=== PATIENT | male | born 1950 | race Caucasian/White ===

== ENCOUNTER 2018-07-21 11:05 | Outpatient (CLI) | payer MEDICARE, BC, SELFPAY ==
[2018-07-21 14:23] LABS: *AMPHETAMINES SCREEN URINE Negative (Negative); *BARBITURATES SCREEN URINE Negative (Negative); *BENZODIAZEPINES SCREEN URINE Negative (Negative); Cannabinoids THC Negative (Negative); Cocaine Screen,Urine Negative (Negative); METHADONE URINE SCREEN POSITIVE (Negative); OPIATES URINE SCREEN POSITIVE (Negative)
[2018-07-21 14:32] LABS: Tricyclic Antidepressants Negative (Negative)
== END 2018-07-21 11:25 ==
PROVIDERS: Visit Provider Psychiatry & Neurology Neurology
DX: G89.21 Chronic pain due to trauma (principal); Z79.899 Other long term (current) drug therapy
CPT/HCPCS: 80307

== ENCOUNTER → 2018-08-30 09:14 | Outpatient (BNVA) | payer MEDICARE, BC, SELFPAY | PROVIDERS: PCP Family Medicine; Visit Provider Physical Therapy Assistant | DX: Z86.010 Personal history of colon polyps (principal); Z12.11 Encounter for screening for malignant neoplasm of colon; Z79.01 Long term (current) use of anticoagulants; I10 Essential (primary) hypertension; E11.9 Type 2 diabetes mellitus without complications ==

== ENCOUNTER 2018-09-06 12:23 | Day surgery (SDC) | payer MEDICARE, BC, SELFPAY ==
--- NOTE | 2018-09-06 09:14 | COLE_ITS ---
Date of service: 09/06/18 Time of Service: 13:24 Colonoscopy Report Date of procedure: 09/06/18 Pre-op diagnosis general: Hx of polyps Post-op diagnosis procedure note: same (sigmoid polyp) Procedure: Colonoscopy with polypectomy by cold forceps Surgeon: Eugenia Armas Anesthesia proc note operative: MAC (Carson Forte CRNA) Estimated blood loss (mL): 3 Pathology: other (sigmoid polyps x2) Complications: None Disposition: same day Indications: Mr. Clemens is a 68-year-old gentleman who was seen in the office for a colonoscopy. His last colonoscopy was in 2012 and he was noted to have 2 tubular adenomas. Risks, benefits and complications have been reviewed. Complications include but are not limited to bleeding, pain, perforation, missed small lesion/polyp, sore throat, aspiration and adverse reaction to the me dications. Questions were entertained and answered to their satisfaction and they wished to proceed. No guarantees were given or implied. Prep: Miralax/Dulcolax (Carson Forte CRNA/ ASA 2) Procedure Start Time: 13:24 Procedure End Time: 13:52 Retraction Time: 17 minutes Findings: 1. 2 sessile polyps in the sigmoid colon. Procedure Description: After informed consent was obtained the patient was taken to the procedure room and placed in a left decubitous position. Monitors were applied and a time out was done. The patients name, date of , procedure, allergies to medications and metal in their body was reviewed. The patient was then sedated. Once sedated and comfortable a rectal exam was done. External exam was normal. Internal exam revealed a normal sphincter tone and no palpable masses. The prostate was smooth. The scope was then introduced and retro-flexed. No internal hemorrhoids were identified. The scope was then advanced to the cecum without difficulty. The TI and appendiceal orifice were identified. The prep was adequate although there was a lot of bile tinged mucus and stool in the right side of the colon. I was able to wash most of it down with 1.5 L of NS. The scope was then slowly retracted over 17 minutes back into the rectum. Polyps were removed in the sigmoid colon with a cold forceps. The scope was removed and the patient was woken up and taken back to Same day surgery in stable condition. The patient tolerated the procedure well and there were no immediate complications. Follow up: The patient should follow up in 3-5 years unless they develop changes in bowel habits or other new gastrointestinal complaints.
--- NOTE | 2018-09-06 09:14 | W.PM.DSUDISC ---
Discharge Plan Disposition Patient Disposition: HOME Condition: Good Discharge Details Reason For Visit: SCREENING Attending Provider: Eugenia Armas Home Meds and New Rx's Prescriptions: Continued acetaminophen [Tylenol] 325 MG tablet 650 mg PO PRN (Reason: Pain) RF: 0 venlafaxine 75 MG tablet 50 mg PO BID RF: 0 aspirin [Aspir-81] 81 MG tablet,delayed release (DR/EC) 81 mg PO DAILY RF: 0 sildenafil [Viagra] 100 MG tablet 100 mg PO PRNRF: 0 simvastatin 40 MG tablet 40 mg PO QPM RF: 0 lisinopril 10 MG tablet 10 mg PO DAILY RF: 0 warfarin [Coumadin] 2 MG tablet 2 mg PO DAILY RF: 0 hydrochlorothiazide 25 MG tablet 25 mg PO DAILY RF: 0 vitamin B complex 1 EACH capsule 1 ea PO DAILY RF: 0 Methocel E 4 M 1 GM granules 1 gm Miscellaneous DAILY RF: 0 cholecalciferol (vitamin D3) 50,000 UNIT capsule 50,000 unit PO DIRECTED RF: 0 glipizide 5 mg Tablet 5 mg PO HS RF: 0 Discontinued bisacodyl [Dulcolax (bisacodyl)] 5 mg tablet,delayed release (DR/EC) 5 mg PO ONCE Qty: 4 RF: 0 polyethylene glycol 3350 17 gram/dose powder 255 g PO ONCE Qty: 255 RF: 0 Discharge Instructions Instructions: Colonoscopy (DC), Colorectal Polyps (DC) Additional Instructions: Findings: 2 polyps Follow up:3-5 years Please call if you develop: fevers >101.5 Nausea or Vomiting Abdominal pain that is not transient DAY SURGERY UNIT POST COLONOSCOPY INSTRUCTIONS 1. Because there will be medication in your system for the next 24 hours, you may feel a little sleepy. Your coordination will be affected. Therefore: a. Do not drive or operate dangerous equipment for 24 hours. b. Do not drink alcohol beverages for 24 hours (not even beer). c. Plan to go home and rest for the day. 2. Generally there are no restrictions on your activity after a day or so has gone by, but you may feel a bit fatigued for a few days. 3 After you arrive home you may have a light meal and return to a normal diet as you can tolerate it without feeling sick to your stomach. 4. After surgery, you may feel pain or discomfort. This should be only transient, but if it persists please contact your doctor. 5. If there are any questions regarding the findings of your procedure, please feel free to contact your doctor. 6. If you are unable to contact your doctor with a problem, contact the hospital at [phone]. 7. Continue all your regular medications unless directed otherwise. I understand the above instructions and have no questions. Signature of Patient or Responsible Adult Escort Date/Time Name of Responsible Adult Escort Signature of Nurse Date/Time Stand Alone Forms: Regino Garrido (SOULEYMANEU) Activity:: Activity as Tolerated Diet:: As Tolerated Discharge Orders Discharge Orders: Discharge Order (Routine); Ordered 09/06/18 Ordered By: Eugenia Armas DS: Diagnosis Discharge Diagnosis (1) Colorectal polyps: Status: Acute (2) S/P colonoscopy: Status: Acute
[2018-09-06 12:39] VITALS: BP 121/87; PULSE 82; RESP 16; TEMP 35.9; O2SAT 97
[2018-09-06] MEDS: Lactated Ringers 1,000 ML 80 ML IV (13:08)
[2018-09-06 13:32] LABS: INR 1.2 (0.9-1.1); Prothrombin Time 12.2 sec (9.3-11.0)
--- NOTE | 2018-09-06 13:47 | BOWEL_PTH ---
PATIENT: Heladio Clemens LOC: [facility] U#:[id number] AGE/SX: 68/M ROOM: RE09/06/[address]: Eugenia Armas MD : [id number] BED: DIS: 09/06/2018 SPEC #: [id number] RECD: 09/06/18 17:28 STATUS: SARAH REQ #: [id number] EULOGIO: 09/06/18 13:[address]: Eugenia Armas DEPT: Surgical Specimen RECD BY: Valerie Moreira Tissues: 1 - BIOPSY BOWEL Procedures: GROSS AND MICRO LEVEL 4 Comments: [id number]
[2018-09-06 14:45] VITALS: BP 108/83; PULSE 63; RESP 16; TEMP 36; O2SAT 95
== END 2018-09-06 14:55 | disposition home or self-care (01) ==
PROVIDERS: Visit Provider Surgery
PROC: 0DJD8ZZ Inspection of Lower Intestinal Tract, Via Natural or Artificial Opening Endoscopic (ICD-10-PCS; CPT 45378; principal; 2018-09-06 12:00)
DX: Z12.11 Encounter for screening for malignant neoplasm of colon (principal); D12.5 Benign neoplasm of sigmoid colon; Z86.010 Personal history of colon polyps; I10 Essential (primary) hypertension; E11.9 Type 2 diabetes mellitus without complications; Z79.4 Long term (current) use of insulin
CPT/HCPCS: 45380; 36415; 88305; 85610

== ENCOUNTER → 2021-12-31 00:16 | Outpatient (CLI) | payer OTHER, SELFPAY ==
--- NOTE | 2021-12-31 13:38 | DI.RAD_ITS ---
Exam(s) XR SHOULDER RT COMPLETE 2+V EXAM: XR SHOULDER RT COMPLETE 2+V CLINICAL HISTORY: PATRICIA SHOULDER PAIN, LIMITED ROM, [id number], NO INJURY. TECHNIQUE: 2D digital imaging was performed. COMPARISON: CR RIGHT SHOULDER COMPLETE from 06/22/2011 FINDINGS: 3 views There is no evidence of fracture or dislocation. 3 x 1 millimeter calcific density seen in the soft tissues just above the greater tuberosity consistent with calcific tendinitis. No other calcificatio ns noted in the lateral subacromial space but there is some calcification noted more medially adjacen t to of the superior aspect of the osseous glenoid and this is either related to rotator cuff calcifi cation at this level or labral calcification. In addition, there are calcified loose bodies noted an teriorly. These are probably within the biceps tendon sheath. There are moderate degenerative changes in the glenohumeral joint. Moderate degenerative changes in the AC joint also noted. No ominous osseous lesions IMPRESSION: Calcific rotator cuff tendinitis. Loose intra-articular bodies, these calcified bodies appearing to be located in the long head biceps tendon sheath. There are 2 of these bodies, the largest measuring 10 x 7 millimeters. Degenerative changes in the glenohumeral and AC joints. DATA REPOSITORY: RADIATION DOSE DELIVERED:
--- NOTE | 2021-12-31 13:38 | DI.RAD_ITS ---
Exam(s) XR SHOULDER LT COMPLETE 2+V EXAM: XR SHOULDER LT COMPLETE 2+V CLINICAL HISTORY: PATRICIA SHOULDER PAIN, LIMITED ROM, NO INJURY, [id number]. TECHNIQUE: 2D digital imaging was performed. COMPARISON: CR XR SHOULDER RT COMPLETE 2+V from 12/31/2021 FINDINGS: Three views No evidence of fracture nor dislocation. No abnormal soft tissue calcifications in the subacromial s pace. There are some degenerative changes in the glenohumeral joint. Osteophytes seen on the inferi or articular surface of the humeral head. No obvious glenohumeral joint space narrowing.. There are mild degenerative changes in the AC joint. Bone density normal. No osseous lesions. IMPRESSION: Some degenerative change in the glenohumeral joint noted. DATA REPOSITORY: RADIATION DOSE DELIVERED:
== END ==
PROVIDERS: Visit Provider Internal Medicine
DX: M75.31 Calcific tendinitis of right shoulder (principal); M24.011 Loose body in right shoulder; M25.512 Pain in left shoulder
CPT/HCPCS: 73030

== ENCOUNTER 2022-02-13 09:12 | Outpatient (CLI) | payer OTHER, SELFPAY ==
--- NOTE | 2022-02-13 06:00 | DI.RAD_ITS ---
Exam(s) XR PAIN CLINIC SACRIOILIAC 2V EXAM: XR PAIN CLINIC SACRIOILIAC 2V CLINICAL HISTORY: Dx: Sacroiliac Joint Dysfunction. TECHNIQUE: Fluoroscopy was provided for the referring physician for guidance with performing pain cl inic injection procedure. COMPARISON: No exams were available for comparison FINDINGS: Left SI joint injection. Please see procedure note for details. Fluoro time: 15.9 seconds RADIATION DOSE DELIVERED: Ka,r=4.59 mGy
[2022-02-13 09:32] VITALS: BP 118/85; PULSE 91; RESP 20; TEMP 36.3; O2SAT 97
[2022-02-13] MEDS: methylPREDNISolone ACETATE 40 MG/ML VIAL (09:59)
--- NOTE | 2022-02-13 09:59 | PDOC.PAIN_ITS ---
Pain Clinic Procedure Note Procedure Note Procedure Note: INTRA-ARTICULAR SI JOINT INJECTION Heladio Baez has been referred to the [facility] for intra- articular SI joint injection. COMMENTS: He was previously evaluated in our clinic on 01/08/22. He is a diabetic with an Hem A1c of 7.7 here recently. Pre-procedure pain VAS = 5/10. Dx: Sacroiliac joint dysfunction Patient was interviewed and the medical record reviewed. There were no medical, pharmacologic, radiographic or other structural contraindications to attempting fluoroscopically guided intra-articular SI joint injection. Risks and expected side effects as well as potential benefit of the procedure were reviewed and voiced concerns addressed. The printed consent form was signed and witnessed. Standard time-out procedure was performed. Patient was placed in the prone position on the fluoroscopy table and automated blood pressure cuff and pulse oximeter applied. The skin entry point for approaching the bilateral SI joints was identified under the most advantageous fluoroscopic view and marked. Following thorough Chlorhexadine preparation of the skin and draping and 1% lidocaine infiltration of the skin entry point and subcutaneous tissues, a 22 gauge 3.5 spinal needle was placed under fluoroscopic guidance into the bilateral SI joints was identified under the most advantageous fluoroscopic view and marked. Intra-articular placement was confirmed by a clear arthrogram resulting from the injection of 0.25ml Omnipaque 240, 1ml 1% lidocaine, and 40mg Depomedrol were injected intra-articularily with an initial reproduction of a significant component of the usual pain. Vital signs were stable throughout the procedure and were as recorded in the docflowsheet by the nursing staff. If given, dosages of intravenous drugs for anxiolysis and analgesia were documented in MAR. Follow up plans and appointments were discussed with the patient. Post procedure instruction was given as documented in nursing documentation and having met discharge criteria, and was discharged from the [facility]. COMMENTS: Post-procedure pain VAS = 0/10. He will start back at his home exercise program in 2 days. Pradeep Coughlin DO, MPH [facility]-Pain Management [facility] CC:
[2022-02-13 10:15] VITALS: BP 133/87; PULSE 90; RESP 21; O2SAT 95
== END 2022-02-13 09:13 | disposition home or self-care (01) ==
LOC: PC 09:13
PROVIDERS: Visit Provider Preventive Medicine Occupational Medicine
DX: M53.3 Sacrococcygeal disorders, not elsewhere classified (principal)
CPT/HCPCS: 27096; 72200; J1030

== ENCOUNTER 2022-05-23 11:39 | Emergency (ER) | payer OTHER, SELFPAY ==
[2022-05-23 11:53] VITALS: BP 101/74; PULSE 94; RESP 17; TEMP 36.6; O2SAT 93
--- NOTE | 2022-05-23 12:15 | DI.CT_ITS ---
Exam(s) CT HEAD FACIAL WO EXAM: CT HEAD FACIAL WO CLINICAL HISTORY: fall/head injury, inr 4. TECHNIQUE: Imaging Protocol: Axial computed tomography images of the head with coronal and sagittal reformatted images were created and reviewed CT of the facial region was also obtained utilizing multi slice acquisition and multiplanar reconstru ction. COMPARISON: CT HEAD WITHOUT CONTRAST from 06/22/2011 FINDINGS: There is moderate generalized cerebral atrophy.. No evidence of acute intracranial hemorrhage, mass effect, or midline shift. The orbital structures are unremarkable. The temporal bone structures appear intact. Calvarium: Normal. Visualized Paranasal sinuses/Mastoids: Clear. CT examination of the orbital facial region shows no evidence of acute facial fracture. No mandibula r fracture. Paranasal sinuses and orbital structures are. IMPRESSION: No evidence of acute intracranial process on head CT. Normal orbital facial CT. RADIATION DOSE DELIVERED: Total DLP Total DLP !Error CTDIvol DATA REPOSITORY: All CT scans at this facility are submitted to the National Radiology Data Registry (NRDR) Dose Index Registry (DIR) with the [employer] (A[employer]). RADIATION OPTIMIZATION: All CT scans at this facility use at least one of these dose optimization te chniques: automated exposure control; mA and/or kV adjustment per patient size (includes targeted exa ms where dose is matched to clinical indication); or iterative reconstruction.
--- NOTE | 2022-05-23 12:23 | ED.GENADUL_ITS ---
Discharge Plan Disposition Patient Disposition: HOME Condition: Stable Discharge Details Clinical Impression: Head injury, Elevated INR Primary Care Provider: LEXI PATEL ED Provider: Ramon Moore Home Meds and New Rx's Prescriptions: Continued atorvastatin 40 mg tablet 40 mg PO DAILY Jardiance 25 mg tablet 25 mg PO DAILY irbesartan [Avapro] 150 mg tablet 150 mg PO DAILY metformin 1,000 mg tablet 1,000 mg PO BID venlafaxine 100 mg tablet 50 mg PO DAILY ketorolac 0.5 % drops 1 drp ophthalmic (eye) QID amlodipine 5 mg tablet 5 mg PO DAILY acetaminophen [Tylenol] 325 MG tablet 650 mg PO PRN (Reason: Pain) aspirin [Aspir-81] 81 MG tablet,delayed release (DR/EC) 81 mg PO DAILY sildenafil [Viagra] 100 MG tablet 100 mg PO PRN simvastatin 40 MG tablet 40 mg PO QPM lisinopril 10 MG tablet 10 mg PO DAILY warfarin [Coumadin] 2 MG tablet 2 mg PO DAILY Label Comments: 12/13/12: 4 mg daily except M and Thu when he takes 3 mg. mrf hydrochlorothiazide 25 MG tablet 25 mg PO DAILY vitamin B complex 1 EACH capsule 1 ea PO DAILY Methocel E 4 M 1 GM granules 1 gm Miscellaneous DAILY cholecalciferol (vitamin D3) 50,000 UNIT capsule 50,000 unit PO DIRECTED Label Comments: weekly on Thu. glipizide 5 mg Tablet 5 mg PO HS Discharge Instructions Instructions: Head Injury (ED), Elevated INR (ED) Additional Instructions: Your INR is elevated. I would not take your Coumadin dose today or tomorrow. Resume your Coumadin on Thursday and then contact your primary care provider first thing Thursday morning to make them aware of your ER visit and your elevated Coumadin. They may want to adjust your dose or check your INR first thing Thursday. I do not want you to wait until Thursday when you have your scheduled appointment. CT imaging of your head and face are unremarkable. Please watch for new or worsening symptoms and return to the ER for any concerns Medical Decision Making 72-year-old gentleman, anticoagulated, tetanus status up-to-date, presents for mechanical fall that occurred 2 days ago striking his head. Questions brief LOC. Asymptomatic now. Seen by his PCP yesterday and noted to have a supratherapeutic INR, sent to the ER for imaging. Patient appears well, neurologically intact. Will obtain CT imaging of his head and face as well as recheck his INR CT imaging of head and face INR 5.2. Discussed CT imaging and laboratory values with patient and family. We will hold Coumadin today and tomorrow. Will take Coumadin Thursday night and contact his PCP first thing Thursday morning to discuss his INR level and change medications if necessary. Patient is scheduled to see his PCP next Thursday but I do not want him to wait that long, this is why recommend contacting him on Thursday. Discussed the importance of returning to the ER for new or evolving symptoms. Standard discharge and return precautions were provided. Patient understands, is agreeable to this plan, and has no additional questions or concerns upon discharge. This documentation was generated using [employer] system, please disregard any oddities of phrase or misspellings. Medical Records Medical records reviewed: Yes I reviewed the patient's medical records. Imaging Data Radiologic Study: Attestation: I personally reviewed and interpreted this imaging study as follows: Imaging: CT Scan Radiologist's impression: Exam(s) CT HEAD FACIAL WO EXAM: CT HEAD FACIAL WO CLINICAL HISTORY: fall/head injury, inr 4. TECHNIQUE: Imaging Protocol: Axial computed tomography images of the head with coronal and sagittal reformatted images were created and reviewed CT of the facial region was also obtained utilizing multi slice acquisition and multiplanar reconstruction. COMPARISON: CT HEAD WITHOUT CONTRAST from 06/22/2011 FINDINGS: There is moderate generalized cerebral atrophy.. No evidence of acute intracranial hemorrhage, mass effect, or midline shift. The orbital structures are unremarkable. The temporal bone structures appear intact. Calvarium: Normal. Visualized Paranasal sinuses/Mastoids: Clear. CT examination of the orbital facial region shows no evidence of acute facial fracture. No mandibular fracture. Paranasal sinuses and orbital structures are. IMPRESSION: No evidence of acute intracranial process on head CT. Normal orbital facial CT. Lab Data Lab results reviewed: Yes I reviewed the patient's lab results. Labs: Laboratory Tests Range/Units 05/23/22 12:30 PT (9.3-11.0) sec 47.4 H INR (0.9-1.1) 5.2 H* HPI General Mode of arrival: ambulatory . Date/Time Provider Initiated Documentation: 05/23/22 12:14 . Limitations to Documentation: no limitations . Information obtained by: patient and family . History of Present Illness 72 year old M presents to the emergency department with the chief complaint of fall/head injury, described as mild, with intensity rated at 2. Quality is described as aching, and is localized to the head and face. Patient reports no radiation. Patient started experiencing this day(s) (2) and it has been constant. No relieving factors improve symptom(s), No exacerbating factors reported . Patient notes no other symptoms.. Patient did receive the following treatments prior to arrival, none Related Data Home Medications Medication Instructions Recorded Confirmed acetaminophen 325 mg tablet 650 mg PO PRN Pain 12/13/12 01/08/22 (Tylenol) aspirin 81 mg tablet,delayed 81 mg PO DAILY 12/13/12 01/08/22 release (Aspir-) carboxymethylcellulose (Methocel E 1 gm miscellaneous DAILY 12/13/12 01/08/22 4 M granules) cholecalciferol (vitamin D3) 1,250 50,000 unit PO DIRECTED 12/13/12 01/08/22 mcg (50,000 unit) capsule hydrochlorothiazide 25 mg tablet 25 mg PO DAILY 12/13/12 01/08/22 lisinopril 10 mg tablet 10 mg PO DAILY 12/13/12 01/08/22 sildenafil 100 mg tablet (Viagra) 100 mg PO PRN 12/13/12 01/08/22 simvastatin 40 mg tablet 40 mg PO QPM 12/13/12 01/08/22 vitamin B complex 1 ea PO DAILY 12/13/12 01/08/22 warfarin 2 mg tablet (Coumadin) 2 mg PO DAILY 12/13/12 01/08/22 glipizide 5 mg tablet 5 mg PO HS 09/06/18 01/08/22 atorvastatin 40 mg tablet 40 mg PO DAILY 01/07/22 01/08/22 empagliflozin 25 mg tablet 25 mg PO DAILY 01/07/22 01/08/22 (Jardiance) irbesartan 150 mg tablet (Avapro) 150 mg PO DAILY 01/07/22 01/08/22 ketorolac 0.5 % eye drops 1 drp ophthalmic (eye) QID 01/07/22 01/08/22 metformin 1,000 mg tablet 1,000 mg PO BID 01/07/22 01/08/22 venlafaxine 100 mg tablet 50 mg PO DAILY 01/07/22 01/08/22 amlodipine 5 mg tablet 5 mg PO DAILY 01/08/22 01/08/22 Allergies Allergy/AdvReac Type Severity Reaction Status Date / Time No Known Allergies Allergy Unverified 02/13/22 09:29 General Stated Complaint: FacialProb LEÓN: 3 Review of Systems Constitutional Constitutional: Reports headache(s) and Denies weakness Eyes Eyes: Denies change in vision ENT Ears, Nose, Mouth, and Throat: Reports headache(s) and Denies neck pain Cardiovascular Cardiovascular: Denies chest pain and Denies dyspnea Respiratory Respiratory: Denies dyspnea Gastrointestinal Gastrointestinal: Denies nausea and Denies vomiting Musculoskeletal Musculoskeletal: Denies neck pain, Denies numbness and Denies tingling Neurologic Neurologic: Reports headache(s), Denies numbness, Denies tingling and Denies weakness Hematologic/Lymphatic Hematologic/Lymphatic: Reports easy bleeding and Reports easy bruising PFSH All Active Problems Head injury (Acute) Elevated INR (Acute) Adhesive capsulitis of both shoulders (Acute) Sacroiliac joint dysfunction of both sides (Acute) S/P colonoscopy (Acute ~09/06/18) Colorectal polyps (Acute ~09/06/18) History of colonic polyps (Acute) Medical History Abnormal glucose Carpal tunnel syndrome Diabetes mellitus type 2, controlled, without complications Hypertension 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 Ecchymosis, contusion, tenderness no crepitus. Multiple abrasions. No open laceration General nose exam: external nose normal Mouth: moist mucous membranes Eyes Alignment and Position: alignment normal Eyelids: eyelids normal Conjunctivae: conjunctivae normal Sclera: sclerae normal Cornea: corneas normal Pupils: PERRL EOM: EOM intact bilaterally Direct ophthalmoscopy: normal light reflex Neck Neck: normal visual inspection, full ROM, trachea midline, supple and nontender Resp Effort & Inspection: normal respiratory effort and able to speak in complete sentences Auscultation: clear to auscultation bilaterally Cardio Rate: regular rate Rhythm: regular rhythm Back/Spine/Pelvis Back: No back tenderness Skin General skin exam: no rashes or lesions noted Neuro General: patient alert, patient awake, patient oriented x3, moves all extremities and no focal motor deficits Cranial Nerves: CN's II-XI intact bilaterally Cognition: normal cognition Speech: speech normal Gait: normal gait Motor: muscle tone normal throughout Sensory Exam: no sensory deficits noted Extrem General: normal to inspection, full ROM and capillary refill normal Psych Appearance: grossly normal Mental Status: mental status grossly normal Course Vital Signs Vital signs: Vital Signs Temperature 36.6 C 05/23/22 11:53 Pulse 94 H 05/23/22 11:53 Respiratory Rate 17 05/23/22 11:53 Blood Pressure 101/74 05/23/22 11:53 Pulse Oximetry 93 05/23/22 11:53 Temperature 36.6 C 05/23/22 11:53 Temperature Source Temporal Artery Scan 05/23/22 11:53 Pulse 94 H 05/23/22 11:53 Respiratory Rate 17 05/23/22 11:53 Blood Pressure 101/74 05/23/22 11:53 Blood Pressure Position Sitting 05/23/22 11:53 Pulse Oximetry 93 05/23/22 11:53 Oxygen Delivery Method Room Air 05/23/22 11:53 Oxygen Flow Rate 0 05/23/22 11:53 Pain Level 0 05/23/22 11:53
[2022-05-23 12:50] LABS: Prothrombin Time 47.4 sec (9.3-11.0)
[2022-05-23 13:06] LABS: INR 5.2 (0.9-1.1)
== END 2022-05-23 13:37 | disposition home or self-care (01) ==
PROVIDERS: Emergency Provider Physician Assistant; PCP Internal Medicine
DX: S00.93XA Contusion of unspecified part of head, initial encounter (principal); R79.1 Abnormal coagulation profile; E11.9 Type 2 diabetes mellitus without complications; F32.9 Major depressive disorder, single episode, unspecified; I10 Essential (primary) hypertension; Z87.891 Personal history of nicotine dependence; W19.XXXA Unspecified fall, initial encounter
CPT/HCPCS: 36415; 99284; 70450; 70486; 85610; 99282

== ENCOUNTER 2023-03-24 09:34 | Inpatient (IN) | payer OTHER, SELFPAY ==
[2023-03-24] VITALS (104 sets, daily range): BP systolic 88–106; BP diastolic 57–79; PULSE 89–113; RESP 13–43; TEMP 37.2–37.6; O2SAT 89–97
--- NOTE | 2023-03-24 | DI.RAD_ITS ---
Exam(s) XR PORTABLE CHEST AP EXAM: XR PORTABLE CHEST AP CLINICAL HISTORY: hypoxia?. TECHNIQUE: 2D digital imaging was performed. COMPARISON: CR RIGHT RIBS TO INCLUDE CXR from 06/22/2011 FINDINGS: Single AP portable view. Heart size is upper normal. The mediastinum is not widened. Lungs are clear. No infiltrates nor obvious pleural effusions. Multiple healed right-sided fractures noted. IMPRESSION: No acute pulmonary findings on this single AP portable view of the chest. DATA REPOSITORY: RADIATION DOSE DELIVERED:
--- NOTE | 2023-03-24 | DI.MRI_ITS ---
Exam(s) MR ABDOMEN WO EXAM: MR ABDOMEN WO CLINICAL HISTORY: MRCP: dilated CBD TECHNIQUE: Multiplanar multisequence MRI of the Abdomen was performed. MRCP sequences also performed. COMPARISON: CT CT ABDOMEN PELVIS W from 03/24/2023 FINDINGS: Exam is limited by patient motion. Liver: Unremarkable. Gallbladder: Unremarkable. Bile Ducts: Mild intrahepatic biliary dilatation. Dilatation of the common bile duct to 13 millimete rs. Rounded filling defect seen in the are CP sequences at the distal common bile duct consistent wi th a stone approximately 8 millimeters in diameter. Pancreas: Unremarkable. No mass or inflammation. No ductal dilatation. Adrenals: Unremarkable. Kidneys: Unremarkable. Spleen: Unremarkable. Aorta: Unremarkable. Soft Tissues: Unremarkable. Bone: Unremarkable. Lymph Nodes: Unremarkable. Mesentery: No ascites. No focal fluid collection. Bowel: No abnormal dilatation or wall thickening. IMPRESSION: Exam limited by patient motion. Dilatation of the common bile duct and probable distal common bile duct stone. DATA REPOSITORY:
--- NOTE | 2023-03-24 09:30 | DI.CT_ITS ---
Exam(s) CT ABDOMEN PELVIS W EXAM: CT ABDOMEN PELVIS W CLINICAL HISTORY: vomiting, generalized abdominal pain. TECHNIQUE: Imaging Protocol: Axial computed tomography images with coronal and sagittal reformatted images were created and reviewed CONTRAST MATERIAL: Intravenous: Omnipaque 350 Contrast volume:100 ml Oral: / no COMPARISON: CT ABD PELVIS WITH CONTRAST from 06/22/2011 FINDINGS: ABDOMEN: Lung Bases: Mild dependent changes. Coronary artery calcifications. Liver: Normal density. No measurable mass. Gallbladder and biliary tract: No radiodense calculus. There is dilatation of the common bile duct 10 millimeters no common duct stone is visible. No mass is visible. There is mild intrahepatic bili alina dilatation. No gallstones or gallbladder wall thickening is seen. Pancreas: Normal density, no abnormal calcifications or inflammatory process. Spleen: Normal. Kidneys: Normal size, contour and axis. No radiodense stones or obstructive uropathy. No suspicious m asses seen. Adrenal glands: No masses seen. Abdominal Aorta: Abdominal portion non-dilated. Severe atherosclerotic calcification of the abdomin al aorta and branch vessels. Soft tissues: Unremarkable. PELVIS: Bladder: No gross wall thickening. No calculi.No focal mass. Bowel: Moderate to increased stool. No obstruction. No bowel wall thickening. Appendix normal. Peritoneal cavity: No ascites, collection or mesenteric inflammatory response. Bones: Severe degenerate changes in the spine. Reproductive organs: Within normal limits. Lymph nodes: Unremarkable. Impression: Dilated common bile duct and mild intrahepatic biliary dilatation. No obstructing stone or mass visi ble. Findings called to Dr. Marquez of the emergency department. RADIATION DOSE DELIVERED: 1,200.78mGy.cm Total DLP DATA REPOSITORY: All CT scans at this facility are submitted to the National Radiology Data Registry (NRDR) Dose Index Registry (DIR) with the [employer] (ACR). RADIATION OPTIMIZATION: All CT scans at this facility use at least one of these dose optimization te chniques: automated exposure control; mA and/or kV adjustment per patient size (includes targeted exa ms where dose is matched to clinical indication); or iterative reconstruction.
--- NOTE | 2023-03-24 09:30 | RT.EKG_ITS ---
APPROVED REPORT Exam: Resting ECG Reason for Exam: Dizzyness Patient Location: E HR:110 bpm ECG Measurements Heart Rate 110 AXIS KS 140 P [id number] QRSd 90 QRS 93 QT 338 T -2 QTc 458 Conclusion Atrial-ventricular dual-paced complexes...other complexes also detected Right axis deviation...QRS axis ( 95,830) Physician: NOT PACED, no stemi, no prior for comparison
--- NOTE | 2023-03-24 09:40 | W.ED.GENAD ---
Discharge Plan Disposition Patient Disposition: Admit to [facility] Condition: Good Discharge Details Chief Complaint: Dizzy/Sync Clinical Impression: Acute hypokalemia, Hypomagnesemia, Dehydration, Vomiting, Common bile duct dilation Primary Care Provider: LEXI PATEL ED Provider: Jaime Marquez Home Meds and New Rx's Prescriptions: No Action atorvastatin 40 mg tablet 40 mg PO DAILY Jardiance 25 mg tablet 25 mg PO DAILY irbesartan [Avapro] 150 mg tablet 150 mg PO DAILY metformin 1,000 mg tablet 1,000 mg PO BID venlafaxine 100 mg tablet 50 mg PO DAILY ketorolac 0.5 % drops 1 drp ophthalmic (eye) QID amlodipine 5 mg tablet 5 mg PO DAILY acetaminophen [Tylenol] 325 MG tablet 650 mg PO PRN PRN (Reason: Pain) aspirin [Aspir-81] 81 MG tablet,delayed release (DR/EC) 81 mg PO DAILY sildenafil [Viagra] 100 MG tablet 100 mg PO PRN simvastatin 40 MG tablet 40 mg PO QPM lisinopril 10 MG tablet 10 mg PO DAILY warfarin [Coumadin] 2 MG tablet 2 mg PO DAILY Patient Comments: 12/13/12: 4 mg daily except M and Fri when he takes 3 mg. mrf hydrochlorothiazide 25 MG tablet 25 mg PO DAILY vitamin B complex 1 EACH capsule 1 ea PO DAILY Methocel E 4 M 1 GM granules 1 gm Miscellaneous DAILY cholecalciferol (vitamin D3) 50,000 UNIT capsule 50,000 unit PO DIRECTED Patient Comments: weekly on Mon. methadone 10 mg tablet 10 mg PO BID Patient Comments: TAKE 1 TABLET BY MOUTH EVERY MORNING AND TAKE 2 TABLET EVERY EVENING ON DAILY BASIS FOR CHRONIC PAIN hydrocodone-acetaminophen 7.5-325 mg tablet 1 tab PO PRN PRN Patient Comments: TAKE 1 TABLET BY MOUTH EVERY 6 HOURS NEEDED FOR CHRONIC PAIN glipizide 5 mg Tablet 5 mg PO HS Medical Decision Making 73-year-old male with a past medical history of stroke on Coumadin, type 2 diabetes, who was recently started on methadone and Vicodin, who presents today for evaluation of nausea, dizziness, vomiting over the last 24 to 48 hours. He denies any blood in his vomitus. He does admit to constipation and says he has not had a bowel movement in the last day or 2. He is now dry heaving today and has not been able to vomit anything else. He has not been eating or drinking because of his symptoms. He denies any chest pain or shortness of breath. He denies any focal abdominal pain, describes his abdomen is feeling generally unwell. He denies any fever or chills. He did just get back from a camping trip, and did swim in a wagner, but he denies drinking any water. No history of previous abdominal surgeries. No other complaints at this time. Exam demonstrates well-appearing male, dry mucous membranes. No focal neurologic deficits. Nontender abdomen. Differential includes pancreatitis, gastroenteritis, less likely obstruction or constipation. We will rehydrate, evaluate for electrolyte abnormality, get a CT scan to evaluate for obstruction, monitor closely and reassess. 12:[address] scan shows evidence of dilated common bile duct with mild intrahepatic biliary dilatation. No obstructing masses seen no. Laboratory work-up shows no white count or bandemia. INR is supratherapeutic 4.8, but the patient has no bleeding or anemia. No indication for emergency reversal at this point. Potassium low at 2.7, magnesium low at 1.1, IV magnesium given, 40 of oral and 20 of IV potassium given. Lipase normal. Troponin normal. Patient feels slightly better. I did discuss the imaging results with surgery Dr. Armas, and she recommends MRCP as the next step. I did discuss admission and it was requested that due to the medical components that it be a medical admission with surgical consult. I did reach out to medicine discussed the case with Dr. Barajas. She accepts the patient for admission for medical management with surgical consultation. Discussed this with both the patient and his significant other at bedside. They agree with the plan. I have extensively reviewed the treatment plan with the patient. I have addressed all patient concerns at this time. I have also discussed the plan with the admitting physician and they agree with the current assessment and plan and have agreed to assume responsibility for the patient. All parties demonstrate verbal understanding and agreement with our assessment and plan at this time. The documentation in this chart was dictated using [employer] dictation software. Please excuse any dictation errors. FINDINGS: ABDOMEN: Lung Bases: Mild dependent changes. Coronary artery calcifications. Liver: Normal density. No measurable mass. Gallbladder and biliary tract: No radiodense calculus. There is dilatation of the common bile duct 10 millimeters no common duct stone is visible. No mass is visible. There is mild intrahepatic biliary dilatation. No gallstones or gallbladder wall thickening is seen. Pancreas: Normal density, no abnormal calcifications or inflammatory process. Spleen: Normal. Kidneys: Normal size, contour and axis. No radiodense stones or obstructive uropathy. No suspicious masses seen. Adrenal glands: No masses seen. Abdominal Aorta: Abdominal portion non-dilated. Severe atherosclerotic calcification of the abdominal aorta and branch vessels. Soft tissues: Unremarkable. PELVIS: Bladder: No gross wall thickening. No calculi.No focal mass. Bowel: Moderate to increased stool. No obstruction. No bowel wall thickening. Appendix normal. Peritoneal cavity: No ascites, collection or mesenteric inflammatory response. Bones: Severe degenerate changes in the spine. Reproductive organs: Within normal limits. Lymph nodes: Unremarkable. Impression: Dilated common bile duct and mild intrahepatic biliary dilatation. No obstructing stone or mass visible. Findings called to Dr. Marquez of the emergency department. HPI General Date/Time Provider Initiated Documentation: 03/24/23 09:38. HPI Narrative: 73-year-old male with a past medical history of stroke on Coumadin, type 2 diabetes, who was recently started on methadone and Vicodin, who presents today for evaluation of nausea, dizziness, vomiting over the last 24 to 48 hours. He denies any blood in his vomitus. He does admit to constipation and says he has not had a bowel movement in the last day or 2. He is now dry heaving today and has not been able to vomit anything else. He has not been eating or drinking because of his symptoms. He denies any chest pain or shortness of breath. He denies any focal abdominal pain, describes his abdomen is feeling generally unwell. He denies any fever or chills. He did just get back from a camping trip, and did swim in a wagner, but he denies drinking any water. No history of previous abdominal surgeries. No other complaints at this time. Related Data Home Medications Medication Instructions Recorded Confirmed acetaminophen 325 mg tablet 650 mg PO PRN PRN Pain 12/13/12 03/24/23 (Tylenol) aspirin 81 mg tablet,delayed 81 mg PO DAILY 12/13/12 03/24/23 release (Aspir-) carboxymethylcellulose (Methocel E 1 gm miscellaneous DAILY 12/13/12 03/24/23 4 M granules) cholecalciferol (vitamin D3) 1,250 50,000 unit PO DIRECTED 12/13/12 03/24/23 mcg (50,000 unit) capsule hydrochlorothiazide 25 mg tablet 25 mg PO DAILY 12/13/12 03/24/23 lisinopril 10 mg tablet 10 mg PO DAILY 12/13/12 03/24/23 sildenafil 100 mg tablet (Viagra) 100 mg PO PRN 12/13/12 01/08/22 simvastatin 40 mg tablet 40 mg PO QPM 12/13/12 03/24/23 vitamin B complex 1 ea PO DAILY 12/13/12 03/24/23 warfarin 2 mg tablet (Coumadin) 2 mg PO DAILY 12/13/12 03/24/23 glipizide 5 mg tablet 5 mg PO HS 09/06/18 03/24/23 atorvastatin 40 mg tablet 40 mg PO DAILY 01/07/22 03/24/23 empagliflozin 25 mg tablet 25 mg PO DAILY 01/07/22 03/24/23 (Jardiance) irbesartan 150 mg tablet (Avapro) 150 mg PO DAILY 01/07/22 03/24/23 ketorolac 0.5 % eye drops 1 drp ophthalmic (eye) QID 01/07/22 03/24/23 metformin 1,000 mg tablet 1,000 mg PO BID 01/07/22 03/24/23 venlafaxine 100 mg tablet 50 mg PO DAILY 01/07/22 03/24/23 amlodipine 5 mg tablet 5 mg PO DAILY 01/08/22 03/24/23 hydrocodone 7.5 mg-acetaminophen 1 tab PO PRN PRN 03/24/23 03/24/23 325 mg tablet methadone 10 mg tablet 10 mg PO BID 03/24/23 03/24/23 Allergies Allergy/AdvReac Type Severity Reaction Status Date / Time No Known Allergies Allergy Unverified 03/24/23 09:39 General Stated Complaint: Dizzy/Sync LEÓN: 3 Review of Systems All systems reviewed & are unremarkable except as noted in HPI and below PFSH All Active Problems (Updated 03/24/23 @ 12:16 by Jaime Marquez DO) Acute hypokalemia (Acute) Hypomagnesemia (Acute) Dehydration (Acute) Vomiting (Acute) Common bile duct dilation (Acute) Adhesive capsulitis of both shoulders (Acute) Sacroiliac joint dysfunction of both sides (Acute) S/P colonoscopy (Acute ~09/06/18) Colorectal polyps (Acute ~09/06/18) History of colonic polyps (Acute) Medical History Abnormal glucose Carpal tunnel syndrome Diabetes mellitus type 2, controlled, without complications Hypertension 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 3.ENT: Atraumatic external nose and ears. Notably dry MM. Neck: Symmetric, trachea midline, No thyromegaly. 4.CVS: +S1/S2, No murmurs or gallops. Peripheral pulses 2+ and equal in all extremities. Brisk capillary refill in all extremities. 5.RESP: Unlabored respiratory effort. Clear to auscultation bilaterally. No wheezes rales or rhonchi 6.GI: Soft, Nontender/Nondistended, No hepatosplenomegaly. No guarding or rebound. No pain to McBurney's point, negative Hancock sign. 7.MSK: Normocephalic/Atraumatic, Extremities w/o deformity or ttp No cyanosis or clubbing, Normal movement of all extremities 8.Skin: Warm, Dry. No rashes or lesions. 9.Neuro: admissions officer II-XII grossly intact. Sensation grossly intact, no focal neurologic deficits. All 6 cardinal planes of vision are fully intact. No evidence of rotatory or vertical nystagmus. The patient demonstrated a normal [id number], good dexterity. There was no evidence of dysdiadochokinesia. Patient was able to ambulate without difficulty. There was no wide-based gait. Romberg testing was normal. Xjyj-du-[id number] testing was normal. Sensation was intact bilaterally as well as muscle strength bilaterally for all extremities. Patient was able to verbalize butter cup with no slurring, or miss pronunciation. 10.Psych: (AAO) x3. Appropriate mood and affect Course Vital Signs Vital signs: Vital Signs Temperature 37.6 C H 03/24/23 09:34 Pulse 113 H 03/24/23 09:34 Respiratory Rate 18 03/24/23 09:34 Blood Pressure 99/67 L 03/24/23 09:34 Pulse Oximetry 92 03/24/23 09:34 Temperature 37.6 C H 03/24/23 09:34 Temperature Source Oral 03/24/23 09:34 Pulse 113 H 03/24/23 09:34 Respiratory Rate 18 03/24/23 09:34 Blood Pressure 99/67 L 03/24/23 09:34 Pulse Oximetry 92 03/24/23 09:34 Oxygen Delivery Method Room Air 03/24/23 09:34 Oxygen Flow Rate 0 03/24/23 09:34 Pain Level 5 03/24/23 09:34
[2023-03-24 09:58] LABS: Abs Immature Grans 0.07 10^3/uL (0.0-0.06); Absolute Basophil Count 0.02 10^3/uL (0.0-0.2); Absolute Lymphocyte Count 0.29 10^3/uL (1.2-3.4); Absolute Monocyte Count 0.23 10^3/uL (0.1-0.8); Absolute Neutrophil Count 8.49 10^3/uL (1.2-6.7); Basophils % 0.2; HCT 41.4 % (40.0-50.0); HGB 13.6 g/dL (13.5-17.5); Immature Grans % 0.8; Lymphocytes % 3.2; MCH 29.6 pg (27.0-33.0); MCHC 32.9 % (32.0-36.0); MCV 90 fL (80-95); MPV 10.1 fL (8.0-11.0); Monocytes % 2.5; Neutrophils % 93.3; Platelet Count 230 10^3/uL (130-400); RBC 4.59 10^6/uL (4.36-5.78); RDW 13.8 % (11.8-14.1); RDW-SD 45.6 fL
[2023-03-24] MEDS: Ondansetron 4 MG/2 ML VIAL IVP ×2 (09:58→21:06)
[2023-03-24] MEDS: Normal Saline 1,000 ML 1000 ML IV ×2 (09:58→10:36)
--- NOTE | 2023-03-24 10:04 | NUR.NOTE ---
Nursing Note: Received report from Jennifer BRADLEY; assumed care of patient at this time.
[2023-03-24 10:08] LABS: BE (Venous) 1 mmol/L (-2-3); HCO3 (Venous) 26 mmol/L (23-28); O2 Sat (Venous) 88 %; TCO2 (Venous) 23 mmol/L (24-29); pCO2 (Venous) 40 mmHg (41-51); pH (Venous) 7.42 (7.31-7.41); pO2 (Venous) 55 mmHg
[2023-03-24 10:26] LABS: ALT 59 U/L (16-63); AST 72 U/L (15-37); Albumin 3.4 g/dL (3.4-5.0); Alkaline Phosphatase 186 U/L (46-116); Anion Gap 13.6 mmol/L (3-11); BUN 30 mg/dL (7-18); Bilirubin, Total 1.6 mg/dL (0.2-1.0); CO2 26.4 mmol/L (21.0-32.0); CREATININE 1.5 mg/dL (0.70-1.30); Calcium 8.9 mg/dL (8.5-10.1); Chloride 94 mmol/L (98-107); Estimated GFR 49.47 (mL/min/1.73m2); Glucose 188 mg/dL (74-106); Lipase 31 U/L (16-77); Sodium 134 mmol/L (136-145); Total Protein 7.1 g/dL (6.4-8.2); Troponin I < 50 ng/L (<or=60)
[2023-03-24 10:27] LABS: Potassium 2.7 mmol/L (3.5-5.1)
[2023-03-24 10:28] LABS: PTT Activated 35.2 sec (21.5-31.9)
[2023-03-24 10:31] LABS: INR 4.8 (0.9-1.1)
[2023-03-24] MEDS: Potassium Chloride 20 MEQ TABCR 40 MEQ PO (10:38)
[2023-03-24] MEDS: MAGNESIUM SULFATE 1 GM/100 ML BAG IVPB (10:38)
[2023-03-24] MEDS: POTASSIUM CHLORIDE 20 MEQ/100 ML BAG 50 MEQ IVPB (10:38)
[2023-03-24] MEDS: Normal Saline Flush 10 ML SYR IVP ×3 (10:44→15:08)
[2023-03-24] MEDS: Normal Saline - Diluent 50 ML VIAL IJ (10:44)
[2023-03-24] MEDS: Omnipaque 350 MG/ML 500 ML BTL-Imaging package IJ (10:45)
[2023-03-24 10:48] LABS: Magnesium 1.1 mg/dL (1.8-2.4)
--- NOTE | 2023-03-24 11:34 | NUR.NOTE ---
Nursing Note: Dr Marquez notified about placing supplemental O2 at 2L on patient. 89% on RA, rebounded immediately to 95% on 2L
--- NOTE | 2023-03-24 12:35 | NUR.NOTE ---
Nursing Note: Report to Chayito BRADLEY. Pt going to 206 shortly.
[2023-03-24] MEDS: Normal Saline 500 ML 50 ML IV (13:10)
[2023-03-24] MEDS: Lactated Ringers 1,000 ML 1000 ML IV (14:12)
[2023-03-24] MEDS: MAGNESIUM SULFATE 4 GM/100 ML BAG IVPB (14:22)
--- NOTE | 2023-03-24 14:30 | SCONE_ITS ---
Documented by User: CLEMENTINA Greco 03/24/23 14:41 Date of service: 03/24/23 Time of Service: 14:30 Assessment and Plan Assessment and plan (1) Common bile duct dilation: Status: Acute Assessment and plan: At this time Heladio is comfortable without any pain. He describes having some minor nausea. Recommend continuing n.p.o. status until he has had MRCP later today to rule out cholelithiasis. Discussed with both Heladio and his that if cholelithiasis is determined by MRCP then the recommendation would be an ERCP at [facility]. We will await MRCP results. History of Present Illness History of Present Illness Chief Complaint: Common Bile Duct Dilation Narrative: 73-year-old male with a history of stroke, neuropathy, obesity, depression, thrombophilia, diabetes, hypertension and spinal stenosis presented to the ER with complaints of nausea, dizziness and vomiting over the past [address] scan of abdomen and pelvis in the ER demonstrated dilated common bile duct and mild intrahepatic biliary dilatation change. He was also found to also have acute hypokalemia, hypomagnesemia and dehydration. This afternoon Heladio reports that he is feeling better however he continues to have some nausea. He denies having any abdominal pain at this time. He denies any changes in his bowel habits over the past few days. PFSH All Active Problems Hypotension (Acute) Supratherapeutic INR (Acute) Discharge planning issues (Acute) DVT prophylaxis (Acute) Chronic pain (Chronic) Constipation (Acute) Acute hypokalemia (Acute) Hypomagnesemia (Acute) Dehydration (Acute) Vomiting (Acute) Common bile duct dilation (Acute) Adhesive capsulitis of both shoulders (Acute) Sacroiliac joint dysfunction of both sides (Acute) S/P colonoscopy (Acute ~09/06/18) Colorectal polyps (Acute ~09/06/18) History of colonic polyps (Acute) Medical History Abnormal glucose Carpal tunnel syndrome Diabetes mellitus type 2, controlled, without complications Hypertension 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 Major depressive disorder, single episode Other thrombophilia Social History Smoking/Tobacco Use Status: Former Tobacco Use Smoking risk assessment performed?: Yes Alcohol Intake: current Alcohol Intake frequency: a few times a week Alcohol type: hard liquor Drug use: Never Substance use type: does not use Housing: house Do you feel safe at home: Yes Do you feel safe in your relationship?: Yes Exam Const General: cooperative, healthy appearing and comfortable Orientation: alert and awake Resp Effort & Inspection: normal respiratory effort, no audible wheezes and no cough GI Inspection: normal to inspection Palpation: soft, no guarding and nontender Auscultation: normal bowel sounds Results Last Vital Signs Temp 37.6 C H 03/24/23 13:06 Pulse 108 H 03/24/23 13:06 Resp 17 03/24/23 13:06 BP 90/60 L 03/24/23 13:06 Pulse Ox 97 03/24/23 13:06 Labs 03/24/23 09:50 03/24/23 09:50 Labs: Laboratory Results - last 24 hr 03/24/23 03/24/23 03/24/23 09:50 09:50 09:50 WBC 9.10 RBC 4.59 Hgb 13.6 Hct 41.4 MCV 90 MCH 29.6 MCHC 32.9 RDW 13.8 Plt Count 230 MPV 10.1 Immature Gran % 0.8 Neutrophils % 93.3 Lymphocytes % 3.2 Monocytes % 2.5 Eosinophils % 0.0 Basophils % 0.2 Nucleated RBC % 0.0 Absolute Neutrophils 8.49 H Absolute Lymphocytes 0.29 L Absolute Monocytes 0.23 Absolute Eosinophils 0.00 Absolute Basophils 0.02 PT 48.0 H INR 4.8 H* APTT 35.2 H VBG pH VBG pCO2 VBG pO2 VBG HCO3 VBG Total CO2 VBG O2 Saturation VBG Base Excess Sodium 134 L Potassium 2.7 L* Chloride 94 L Carbon Dioxide 26.4 Anion Gap 13.6 H BUN 30 H Creatinine 1.5 H Est GFR (CKD-EPI 2020) 49.47 Glucose 188 H Calcium 8.9 Magnesium Total Bilirubin 1.6 H AST 72 H ALT 59 Alkaline Phosphatase 186 H Troponin I < 50 Total Protein 7.1 Albumin 3.4 Lipase 31 03/24/23 03/24/23 09:50 09:50 WBC RBC Hgb Hct MCV MCH MCHC RDW Plt Count MPV Immature Gran % Neutrophils % Lymphocytes % Monocytes % Eosinophils % Basophils % Nucleated RBC % Absolute Neutrophils Absolute Lymphocytes Absolute Monocytes Absolute Eosinophils Absolute Basophils PT INR APTT VBG pH 7.42 H VBG pCO2 40 L VBG pO2 55 VBG HCO3 26 VBG Total CO2 23 L VBG O2 Saturation 88 VBG Base Excess 1 Sodium Potassium Chloride Carbon Dioxide Anion Gap BUN Creatinine Est GFR (CKD-EPI 2020) Glucose Calcium Magnesium 1.1 L Total Bilirubin AST ALT Alkaline Phosphatase Troponin I Total Protein Albumin Lipase Documented by User: Eugenia Armas MD 03/24/23 16:24 Assessment and Plan Assessment and plan (1) Common bile duct dilation: Status: Acute Assessment and plan: At this time Heladio is comfortable without any pain. He describes having some minor nausea. Recommend continuing n.p.o. status until he has had MRCP later today to rule out cholelithiasis. Discussed with both Heladio and his that if cholelithiasis is determined by MRCP then the recommendation would be an ERCP at [facility]. We will await MRCP results. Agrre with the above note Patient seen and examined at 1600 Patient is at the bedside. Patient describes dizziness which led to dry heaving and nausea. He never had any abdominal pain. He had decreased po intake starting on Thursday evening. He didn't eat anything yesterday. He denies diarrhea. I just dont feel well. He has had no BM since Thursday. He took something for constipation last night and again this am. NO results yet. He is passing flatus. Patient is on Coumadin for a Hx of stroke which was secondary to a hypercoagulable state. They are not sure which type of hypercoagulopathy. He has chronic pain and was recently started on Methadone. EXAM: General- patient closes his eyes as I am talking to him. He is alert CHEST: CTA CVS: RRR ABDO: soft, mildly distended. Minimal BS. No tenderness on deep palpation CT scan reviewed. There is CBD and intrahepatic dilatation. NO stones noted. Gallbladder looks normal by CT. A: Abnormal LFTs with mild elevation in T. Bili. Lipase is normal. He is non- tender. No abdominal fluid and Gallbladder looks normal on CT scan. P; Await results of the MRCP OK to have clear liquids Will order a suppository and Miralax Case discussed with Dr. Barajas We will follow along with you History of Present Illness Consults Consult date: 03/24/23 Requesting physician: Khalida Barajas Review of Systems All systems reviewed & are unremarkable except as noted in HPI and below PFSH All Active Problems Hypotension (Acute) Supratherapeutic INR (Acute) Discharge planning issues (Acute) DVT prophylaxis (Acute) Chronic pain (Chronic) Constipation (Acute) Acute hypokalemia (Acute) Hypomagnesemia (Acute) Dehydration (Acute) Vomiting (Acute) Common bile duct dilation (Acute) Adhesive capsulitis of both shoulders (Acute) Sacroiliac joint dysfunction of both sides (Acute) S/P colonoscopy (Acute ~09/06/18) Colorectal polyps (Acute ~09/06/18) History of colonic polyps (Acute) Medical History Abnormal glucose Carpal tunnel syndrome Diabetes mellitus type 2, controlled, without complications Hypertension 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 Major depressive disorder, single episode Other thrombophilia Social History Smoking/Tobacco Use Status: Former Tobacco Use Smoking risk assessment performed?: Yes Alcohol Intake: current Alcohol Intake frequency: a few times a week Alcohol type: hard liquor Drug use: Never Substance use type: does not use Housing: house Do you feel safe at home: Yes Do you feel safe in your relationship?: Yes Results Labs 03/24/23 09:50 03/24/23 09:[address] scan report/results: report reviewed and image reviewed CT scan - pelvis: report reviewed and image reviewed Additional studies: MRCP- Pending
[2023-03-24] MEDS: LORazepam 2 MG/ML VIAL 0.5 MG IVP (15:07)
--- NOTE | 2023-03-24 15:37 | HPE_ITS ---
Date of service: 03/24/23 Time of Service: 15:37 Assessment and Plan Assessment and plan (1) Common bile duct dilation: Status: Acute Assessment and plan: With evidence of ascending cholangitis. Culture blood. Started on zosyn. Procalcitonin is very elevated. NPO after midnight for ERCP. Discussed with Dr Armas. (2) Dehydration: Status: Acute Assessment and plan: Hydrate IV (3) Hypomagnesemia: Status: Acute Assessment and plan: Replete (4) Acute hypokalemia: Status: Acute Assessment and plan: Replete (5) Diabetes mellitus type 2, controlled, without complications: Assessment and plan: Cover with SSI (6) Constipation: Status: Acute Assessment and plan: Provide a bowel regimen. (7) Chronic pain: Status: Chronic Assessment and plan: Continue home medications (8) Supratherapeutic INR: Status: Acute Assessment and plan: HOld coumadin. (9) Hypotension: Status: Acute Assessment and plan: ?due to dehydration vs impending septic shock. Appears to have resolved. Monitor while treating with antibiotics and IVF. (10) DVT prophylaxis: Status: Acute Assessment and plan: Supratherapeutic INR (11) Discharge planning issues: Status: Acute Assessment and plan: Full code Anticipate a [id number] [place] to [facility] [place]. 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 There has been no abdominal pain. His CT showed a dilated CBD with mild intrahepatic biliary dilatation. MRCP shows dilatation of the CBD and probable distal common bile duct stone. He does have a T bili of 1.6, AST of 72, ALT of 59, Alk phos of 186. The patient was also found to be dehydrated, with hypokalemia and hypomagnesemia. The patient was hypotensive on arrival to the floor, but responded to IVF. His potassium and magnesium were repleted, and a surgical consultation was sought, and the patient is recommended to have an ERCP. He is made NPO after midnight. His INR is 4.8. Review of Systems All systems reviewed & are unremarkable except as noted in HPI and below PFSH All Active Problems Hypotension (Acute) Supratherapeutic INR (Acute) Discharge planning issues (Acute) DVT prophylaxis (Acute) Chronic pain (Chronic) Constipation (Acute) Acute hypokalemia (Acute) Hypomagnesemia (Acute) Dehydration (Acute) Vomiting (Acute) Common bile duct dilation (Acute) Adhesive capsulitis of both shoulders (Acute) Sacroiliac joint dysfunction of both sides (Acute) S/P colonoscopy (Acute ~09/06/18) Colorectal polyps (Acute ~09/06/18) History of colonic polyps (Acute) Medical History Abnormal glucose Carpal tunnel syndrome Diabetes mellitus type 2, controlled, without complications Hypertension 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 Major depressive disorder, single episode Other thrombophilia Social History Smoking/Tobacco Use Status: Former Tobacco Use Smoking risk assessment performed?: Yes Alcohol Intake: current Alcohol Intake frequency: a few times a week Alcohol type: hard liquor Drug use: Never Substance use type: does not use Housing: house Do you feel safe at home: Yes Do you feel safe in your relationship?: Yes Meds Allergies and Home Medications Allergies Allergy/AdvReac Type Severity Reaction Status Date / Time No Known Allergies Allergy Unverified 03/24/23 09:39 Home Medications Medication Instructions Recorded Confirmed Type acetaminophen 325 mg tablet 650 mg PO PRN PRN Pain 12/13/12 03/24/23 History (Tylenol) aspirin 81 mg tablet,delayed 81 mg PO DAILY 12/13/12 03/24/23 History release (Aspir-) carboxymethylcellulose (Methocel E 1 gm miscellaneous DAILY 12/13/12 03/24/23 History 4 M granules) cholecalciferol (vitamin D3) 1,250 50,000 unit PO DIRECTED 12/13/12 03/24/23 History mcg (50,000 unit) capsule hydrochlorothiazide 25 mg tablet 25 mg PO DAILY 12/13/12 03/24/23 History lisinopril 10 mg tablet 10 mg PO DAILY 12/13/12 03/24/23 History sildenafil 100 mg tablet (Viagra) 100 mg PO PRN 12/13/12 01/08/22 History simvastatin 40 mg tablet 40 mg PO QPM 12/13/12 03/24/23 History vitamin B complex 1 ea PO DAILY 12/13/12 03/24/23 History warfarin 2 mg tablet (Coumadin) 2 mg PO DAILY 12/13/12 03/24/23 History glipizide 5 mg tablet 5 mg PO HS 09/06/18 03/24/23 History atorvastatin 40 mg tablet 40 mg PO DAILY 01/07/22 03/24/23 History empagliflozin 25 mg tablet 25 mg PO DAILY 01/07/22 03/24/23 History (Jardiance) irbesartan 150 mg tablet (Avapro) 150 mg PO DAILY 01/07/22 03/24/23 History ketorolac 0.5 % eye drops 1 drp ophthalmic (eye) QID 01/07/22 03/24/23 History metformin 1,000 mg tablet 1,000 mg PO BID 01/07/22 03/24/23 History venlafaxine 100 mg tablet 50 mg PO DAILY 01/07/22 03/24/23 History amlodipine 5 mg tablet 5 mg PO DAILY 01/08/22 03/24/23 History hydrocodone 7.5 mg-acetaminophen 1 tab PO Q6H PRN PRN 03/24/23 03/24/23 History 325 mg tablet methadone 10 mg tablet See Rx Instructions .Route .COMPLEX 03/24/23 03/24/23 History Exam Narrative Exam Narrative: General: Pleasant male who is comfortably laying in bed, A&Ox3, NAD Neurological: A&Ox3, no focal deficits Psychiatric: Appropriate speech pattern/content Skin: Visible skin in tact HEENT: Atraumatic, normocephalic, EOMI, dry MM, clear oropharynx, no submandibular or cervical lymphadenopathy, no goiter or JVD Cardiovascular: RRR, no m/r/g Lungs: CTAB Gastrointestinal: soft, nontender, nondistended Genitourinary: deferred Extremities: no edema BLEs, 2+ pedal pulses B, no c/c, tinea pedis Results Imaging Additional studies: EKG: ST, HR 110, no acute ischemia, R axis deviation. CT abdomen/pelvis w/ contrast: Dilated common bile duct and mild intrahepatic biliary dilatation.? No obstructing stone or mass visible. MRI abdomen pending Labs 03/24/23 09:50 03/24/23 15:57 Labs: Laboratory Results - last 24 hr 03/24/23 03/24/23 03/24/23 09:50 09:50 09:50 WBC 9.10 RBC 4.59 Hgb 13.6 Hct 41.4 MCV 90 MCH 29.6 MCHC 32.9 RDW 13.8 Plt Count 230 MPV 10.1 Immature Gran % 0.8 Neutrophils % 93.3 Lymphocytes % 3.2 Monocytes % 2.5 Eosinophils % 0.0 Basophils % 0.2 Nucleated RBC % 0.0 Absolute Neutrophils 8.49 H Absolute Lymphocytes 0.29 L Absolute Monocytes 0.23 Absolute Eosinophils 0.00 Absolute Basophils 0.02 PT 48.0 H INR 4.8 H* APTT 35.2 H VBG pH VBG pCO2 VBG pO2 VBG HCO3 VBG Total CO2 VBG O2 Saturation VBG Base Excess Sodium 134 L Potassium 2.7 L* Chloride 94 L Carbon Dioxide 26.4 Anion Gap 13.6 H BUN 30 H Creatinine 1.5 H Est GFR (CKD-EPI 2020) 49.47 Glucose 188 H Calcium 8.9 Magnesium Total Bilirubin 1.6 H AST 72 H ALT 59 Alkaline Phosphatase 186 H Troponin I < 50 Total Protein 7.1 Albumin 3.4 Lipase 31 03/24/23 03/24/23 09:50 09:50 WBC RBC Hgb Hct MCV MCH MCHC RDW Plt Count MPV Immature Gran % Neutrophils % Lymphocytes % Monocytes % Eosinophils % Basophils % Nucleated RBC % Absolute Neutrophils Absolute Lymphocytes Absolute Monocytes Absolute Eosinophils Absolute Basophils PT INR APTT VBG pH 7.42 H VBG pCO2 40 L VBG pO2 55 VBG HCO3 26 VBG Total CO2 23 L VBG O2 Saturation 88 VBG Base Excess 1 Sodium Potassium Chloride Carbon Dioxide Anion Gap BUN Creatinine Est GFR (CKD-EPI 2020) Glucose Calcium Magnesium 1.1 L Total Bilirubin AST ALT Alkaline Phosphatase Troponin I Total Protein Albumin Lipase Last Vital Signs Temp 37.6 C H 03/24/23 13:06 Pulse 108 H 03/24/23 13:06 Resp 17 03/24/23 13:06 BP 90/60 L 03/24/23 13:06 Pulse Ox 97 03/24/23 13:06 Time Spent Time spent with Patient: 55-74 minutes Time was spent: preparing to see the patient(eg.review tests), obtaining and/or reviewing separately otained hiistory, ordering medications,tests, procedures, referring, communicating with other health healthcare representative, indepentently interpreting results, counseling the patient and care coordination
[2023-03-24 16:08] LABS: Lab Add On Test DONE
[2023-03-24 16:26] LABS: Anion Gap 10.3 mmol/L (3-11); BUN 25 mg/dL (7-18); CO2 25.7 mmol/L (21.0-32.0); CREATININE 1.3 mg/dL (0.70-1.30); Calcium 8.2 mg/dL (8.5-10.1); Chloride 99 mmol/L (98-107); Estimated GFR 58.73 (mL/min/1.73m2); Glucose 176 mg/dL (74-106); Sodium 135 mmol/L (136-145)
[2023-03-24 16:54] LABS: Procalcitonin 21.2 ng/mL
[2023-03-24] MEDS: Bisacodyl 10 MG SUPP PR (17:53)
[2023-03-24] MEDS: Insulin Aspart 300 UNITS/3 ML PEN SC (17:59)
[2023-03-24] MEDS: PIPERACILLIN/TAZO 4.5 GM in Normal Saline 100 ML IVPB (19:34)
[2023-03-24] MEDS: Docusate Sodium 100 MG CAP PO (20:19)
--- NOTE | 2023-03-24 21:31 | DI.VRAD_ITS ---
PROCEDURE INFORMATION: Exam: XR Chest Exam date and time: 03/24/2023 9:02 PM Age: 73 years old Clinical indication: Other: Hypoxia TECHNIQUE: Imaging protocol: Radiologic exam of the chest. Views: 1 view. COMPARISON: MR ABDOMEN WO 03/24/2023 3:10 PM FINDINGS: Lungs: Unremarkable. No consolidation. Pleural spaces: Unremarkable. No pleural effusion. No pneumothorax. Heart/Mediastinum: Unremarkable. No cardiomegaly. Bones/joints: Moderate degenerative changes of the spine and shoulders. Old, healed right rib fractures. No acute fracture. IMPRESSION: No acute abnormality Dictated and Authenticated by: Yaya Mena MD. Ordering:PATRICIO Gaxiola MD
[2023-03-24] MEDS: Lactated Ringers 1,000 ML 125 ML IV (22:00)
[2023-03-25] VITALS (12 sets, daily range): BP systolic 99–144; BP diastolic 67–98; PULSE 81–95; RESP 16–19; TEMP 36.3–38.1; O2SAT 91–98
[2023-03-25] MEDS: PIPERACILLIN/TAZO 4.5 GM in Normal Saline 100 ML IVPB ×4 (02:33→20:31)
[2023-03-25] MEDS: Lactated Ringers 1,000 ML 125 ML IV ×2 (06:35→13:56)
[2023-03-25 07:30] LABS: Abs Immature Grans 0.09 10^3/uL (0.0-0.06); Absolute Basophil Count 0.06 10^3/uL (0.0-0.2); Absolute Lymphocyte Count 1.13 10^3/uL (1.2-3.4); Absolute Monocyte Count 0.88 10^3/uL (0.1-0.8); Basophils % 0.5; Eosinophils % 0.2; HCT 37.2 % (40.0-50.0); HGB 12.2 g/dL (13.5-17.5); Immature Grans % 0.7; Lymphocytes % 9.4; MCHC 32.8 % (32.0-36.0); MCV 91 fL (80-95); MPV 10.9 fL (8.0-11.0); Monocytes % 7.3; Neutrophils % 81.9; Platelet Count 178 10^3/uL (130-400); RBC 4.07 10^6/uL (4.36-5.78); RDW 14.1 % (11.8-14.1); RDW-SD 47.4 fL; WBC 12.07 10^3/uL (4.4-10.8)
[2023-03-25 07:40] LABS: Absolute Eosinophil Count 0.02 10^3/uL (0.0-0.7); Absolute Neutrophil Count 9.89 10^3/uL (1.2-6.7)
[2023-03-25 07:49] LABS: ALT 44 U/L (16-63); AST 36 U/L (15-37); Albumin 2.8 g/dL (3.4-5.0); Alkaline Phosphatase 118 U/L (46-116); Anion Gap 10.9 mmol/L (3-11); BUN 17 mg/dL (7-18); Bilirubin, Direct 0.3 mg/dL (0.0-0.2); Bilirubin, Total 0.7 mg/dL (0.2-1.0); C-Reactive Protein 21.03 mg/dL (0.0-0.3); CO2 26.1 mmol/L (21.0-32.0); CREATININE 0.9 mg/dL (0.70-1.30); Calcium 8.3 mg/dL (8.5-10.1); Chloride 99 mmol/L (98-107); Estimated GFR 91.31 (mL/min/1.73m2); Glucose 123 mg/dL (74-106); Magnesium 1.9 mg/dL (1.8-2.4); Potassium 3.3 mmol/L (3.5-5.1); Sodium 136 mmol/L (136-145); Total Protein 6.4 g/dL (6.4-8.2)
[2023-03-25 08:10] LABS: Prothrombin Time 44.3 sec (9.3-11.0)
[2023-03-25 08:15] LABS: INR 4.4 (0.9-1.1)
[2023-03-25] MEDS: Refresh PLUS Eye Drops 0.4ml OP ×2 (08:16→22:43)
--- NOTE | 2023-03-25 08:58 | W.PM.PROGNOT ---
Date of Service Date of service: 03/25/23 Time of Service: 07:00 Assessment and Plan Assessment and plan (1) Common bile duct dilation: Status: Acute Assessment and plan: MRCP on 03/24 Demonstrated possible stone in the common bile duct. Will reach out to [facility] [place] possible [place]. Abdominal pain, nausea and vomiting are all improved. (+) BM yesterday, urinating without difficulty. Continue with clear liquids at this time. Encouraged activity as tolerated LFTs and bilirubin have normalized today P// Contact [facility] regarding possible ERCP Agree with above Patient seen around 3 pm He looks better then yesterday. Still complaining of dizziness and some nausea ABDO: soft, distended, +BS, non-tender A: LFT's normalized. Discussed case with [facility] Blood cultures Positive for Gram neg rods- on Zosyn P: If labs tomorrow are still normal then will not need ERCP. Will reassess patient tomorrow Will need his Gallbladder removed. Timing t5o be determined tomorrow. Subjective Subjective Interval history since last seen: Arrive with patient resting in the chair. He states he did not get much sleep last night. he describes that his nausea and vomiting have both improved. he denies any abdominal pain at this time. Exam Const General: cooperative, healthy appearing and comfortable Orientation: alert and awake Resp Effort & Inspection: normal respiratory effort, no audible wheezes and no cough GI Inspection: normal to inspection Palpation: soft, no guarding and nontender Objective Last Vital Signs Temp 36.6 C 03/25/23 07:15 Pulse 81 03/25/23 07:15 Resp 16 03/25/23 07:15 BP 108/72 03/25/23 07:15 Pulse Ox 96 03/25/23 08:15 Laboratory Results - last 24 hr 03/24/23 03/24/23 03/24/23 09:50 09:50 09:50 WBC 9.10 RBC 4.59 Hgb 13.6 Hct 41.4 MCV 90 MCH 29.6 MCHC 32.9 RDW 13.8 Plt Count 230 MPV 10.1 Immature Gran % 0.8 Neutrophils % 93.3 Lymphocytes % 3.2 Monocytes % 2.5 Eosinophils % 0.0 Basophils % 0.2 Nucleated RBC % 0.0 Absolute Neutrophils 8.49 H Absolute Lymphocytes 0.29 L Absolute Monocytes 0.23 Absolute Eosinophils 0.00 Absolute Basophils 0.02 PT 48.0 H INR 4.8 H* APTT 35.2 H VBG pH VBG pCO2 VBG pO2 VBG HCO3 VBG Total CO2 VBG O2 Saturation VBG Base Excess Sodium 134 L Potassium 2.7 L* Chloride 94 L Carbon Dioxide 26.4 Anion Gap 13.6 H BUN 30 H Creatinine 1.5 H Est GFR (CKD-EPI 2020) 49.47 Glucose 188 H Calcium 8.9 Magnesium Total Bilirubin 1.6 H Conjugated Bilirubin AST 72 H ALT 59 Alkaline Phosphatase 186 H Troponin I < 50 C-Reactive Protein Total Protein 7.1 Albumin 3.4 Lipase 31 Procalcitonin Add-On Test Request 03/24/23 03/24/23 03/24/23 09:50 09:50 15:57 WBC RBC Hgb Hct MCV MCH MCHC RDW Plt Count MPV Immature Gran % Neutrophils % Lymphocytes % Monocytes % Eosinophils % Basophils % Nucleated RBC % Absolute Neutrophils Absolute Lymphocytes Absolute Monocytes Absolute Eosinophils Absolute Basophils PT INR APTT VBG pH 7.42 H VBG pCO2 40 L VBG pO2 55 VBG HCO3 26 VBG Total CO2 23 L VBG O2 Saturation 88 VBG Base Excess 1 Sodium 135 L Potassium 4.0 D Chloride 99 Carbon Dioxide 25.7 Anion Gap 10.3 BUN 25 H Creatinine 1.3 Est GFR (CKD-EPI 2020) 58.73 Glucose 176 H Calcium 8.2 L Magnesium 1.1 L Total Bilirubin Conjugated Bilirubin AST ALT Alkaline Phosphatase Troponin I C-Reactive Protein Total Protein Albumin Lipase Procalcitonin Add-On Test Request 03/24/23 03/24/23 03/25/23 15:57 Unknown 07:00 WBC RBC Hgb Hct MCV MCH MCHC RDW Plt Count MPV Immature Gran % Neutrophils % Lymphocytes % Monocytes % Eosinophils % Basophils % Nucleated RBC % Absolute Neutrophils Absolute Lymphocytes Absolute Monocytes Absolute Eosinophils Absolute Basophils PT INR APTT VBG pH VBG pCO2 VBG pO2 VBG HCO3 VBG Total CO2 VBG O2 Saturation VBG Base Excess Sodium 136 Potassium 3.3 L Chloride 99 Carbon Dioxide 26.1 Anion Gap 10.9 BUN 17 Creatinine 0.9 Est GFR (CKD-EPI 2020) 91.31 Glucose 123 H Calcium 8.3 L Magnesium 1.9 Total Bilirubin 0.7 Conjugated Bilirubin 0.3 H AST 36 ALT 44 Alkaline Phosphatase 118 H Troponin I C-Reactive Protein 21.03 H Total Protein 6.4 Albumin 2.8 L Lipase Procalcitonin 21.2 Add-On Test Request DONE 03/25/23 03/25/23 07:00 07:00 WBC 12.07 H RBC 4.07 L Hgb 12.2 L Hct 37.2 L MCV 91 MCH 30.0 MCHC 32.8 RDW 14.1 Plt Count 178 MPV 10.9 Immature Gran % 0.7 Neutrophils % 81.9 Lymphocytes % 9.4 Monocytes % 7.3 Eosinophils % 0.2 Basophils % 0.5 Nucleated RBC % 0.0 Absolute Neutrophils 9.89 H Absolute Lymphocytes 1.13 L Absolute Monocytes 0.88 H Absolute Eosinophils 0.02 Absolute Basophils 0.06 PT 44.3 H INR 4.4 H* APTT VBG pH VBG pCO2 VBG pO2 VBG HCO3 VBG Total CO2 VBG O2 Saturation VBG Base Excess Sodium Potassium Chloride Carbon Dioxide Anion Gap BUN Creatinine Est GFR (CKD-EPI 2020) Glucose Calcium Magnesium Total Bilirubin Conjugated Bilirubin AST ALT Alkaline Phosphatase Troponin I C-Reactive Protein Total Protein Albumin Lipase Procalcitonin Add-On Test Request Time Spent with Patient Time Spent with Patient: 25-34 minutes Time was spent: obtaining and/or reviewing separately otained hiistory, ordering medications,tests, procedures, indepentently interpreting results, counseling the patient and care coordination
--- NOTE | 2023-03-25 09:18 | INITIAL_ITS ---
Date of service: 03/25/23 Time of Service: 09:19 Care Management Initial Assmt Initial Assessment REASON FOR HOSPITALIZATION:: CBD dilation PREVIOUS FUNCTIONAL STATUS/SOCIAL/FAMILY SUPPORTS:: Heladio lives in a single family home in [place], [place] with his Kate. They have one son who also lives in [place] and is an active part of their life. They do not have any grandchildren. 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 He has a stroke in 1998 and missed a whole year of work. 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 He returned to [employer] for a while and then retired. 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 Kulwinder uses a cane as needed and continues to drive. He is independent with ADLs and does not receive any community services. CURRENT FUNCTIONAL STATUS:: Kulwinder was sitting up in a chair when CM met with him. He was pleasant and engaged easily with CM. He talked about his work and how his stroke 24 years ago affected him as well as his career. Kulwinder was admitted with abdominal pain and nausea and dizziness. He stated that he no longer has the pain but remains dizzy and nauseated. He is awaiting transfer to [facility] for a down and back ERCP. He has also been found to have positive blood cultures growing gram negative rods so he will likely need a course of IV antibiotics. ADVANCE DIRECTIVES:: none on file Has patient been provided with info about the portal/API?: Yes Did the patient sign up for the portal?: No CODE STATUS:: Full Code INSURANCE COVERAGE / FINANCIAL ISSUES:: [facility] CURRENT HOME/COMMUNITY SERVICES/EQUIPMENT:: uses a cane prn PRIMARY CARE PHYSICIAN:: Radhika Hood POTENTIAL DISCHARGE NEEDS:: follow up with PCP, surgeon and plan of care as prescribed PATIENT/FAMILY EDUCATION NEEDS:: Review of discharge instructions including diet, activity, limitations, follow up plan and discuss [employer] TRANSPORTATION:: via private vehicle with - PLAN:: Anticipate that Kulwinder will be discharged home with no new services. He will follow up with his surgeon, PCP and plan of care and transport with family. CM will follow and assess for ongoing discharge concerns. PFSH All Active Problems (Updated 03/25/23 @ 15:59 by Khalida Barajas MD) Fluid overload (Acute) Gram-negative bacteremia (Acute) Supratherapeutic INR (Acute) Discharge planning issues (Acute) DVT prophylaxis (Acute) Chronic pain (Chronic) Constipation (Acute) Acute hypokalemia (Acute) Vomiting (Acute) Common bile duct dilation (Acute) Adhesive capsulitis of both shoulders (Acute) Sacroiliac joint dysfunction of both sides (Acute) S/P colonoscopy (Acute ~09/06/18) Colorectal polyps (Acute ~09/06/18) History of colonic polyps (Acute) Medical History Abnormal glucose Carpal tunnel syndrome Diabetes mellitus type 2, controlled, without complications Hypertension Joint pain of leg [facility] current use of anticoagulant Major depressive disorder, single episode Other thrombophilia Social History Smoking/Tobacco Use Status: Former Tobacco Use Smoking risk assessment performed?: Yes Alcohol Intake: current Alcohol Intake frequency: a few times a week Alcohol type: hard liquor Drug use: Never Substance use type: does not use Housing: house Do you feel safe at home: Yes Do you feel safe in your relationship?: Yes
[2023-03-25] MEDS: Vitamins B Comp w/C TAB 1 TAB PO (09:51)
[2023-03-25] MEDS: Aspirin E.C. 81 MG TABEC PO (09:51)
[2023-03-25] MEDS: Polyethylene Glycol 3350 17 GM PACKET PO (09:51)
[2023-03-25] MEDS: Docusate Sodium 100 MG CAP PO ×2 (09:51→20:32)
[2023-03-25] MEDS: Venlafaxine 50 MG TAB PO (09:51)
[2023-03-25] MEDS: Ondansetron 4 MG/2 ML VIAL IVP (11:23)
--- NOTE | 2023-03-25 15:53 | W.PM.PROGNOT ---
Date of Service Date of service: 03/25/23 Time of Service: 15:53 Assessment and Plan Assessment and plan (1) Common bile duct dilation: Status: Acute Assessment and plan: With evidence of ascending cholangitis. GNR in blood. Continue zosyn. Trend procalcitonin/CRP. NPO after midnight for ERCP hopefully tomorrow [place] if INR<2.0. Discussed with Dr Barnes. (2) Gram-negative bacteremia: Status: Acute Assessment and plan: As above (3) Dehydration: Status: Resolved Assessment and plan: Patient is actually fluid overloaded now. D/c IVF. (4) Fluid overload: Status: Acute Assessment and plan: D/c IVF. Given furosemide 10 mg IV x1. (5) Hypomagnesemia: Status: Resolved Assessment and plan: Recheck in am. (6) Acute hypokalemia: Status: Acute Assessment and plan: Replete (7) Diabetes mellitus type 2, controlled, without complications: Assessment and plan: Cover with SSI (8) Constipation: Status: Acute Assessment and plan: Continue bowel regimen. (9) Chronic pain: Status: Chronic Assessment and plan: Continue home medications (10) Supratherapeutic INR: Status: Acute Assessment and plan: HOld coumadin. Will give vitamin K 2.5 mg x1. (11) Hypotension: Status: Resolved Assessment and plan: I think this was impending septic shock. Appears to have resolved. (12) DVT prophylaxis: Status: Acute Assessment and plan: Supratherapeutic INR (13) Discharge planning issues: Status: Acute Assessment and plan: Full code Anticipate a [id number] transfer to [facility] [place] am. Subjective Subjective Interval history since last seen: Mr Clemens remains dizzy and nauseated. He did have a BM yesterday. No CP. Does have SOB and has been having a dry cough. GNR in blood. Possible ERCP tomorrow. Exam Narrative Exam Narrative: General: Pleasant male who is sitting up in bed, reading the newspaper, A&Ox3, NAD HEENT: EOMI, MMM Cardiovascular: RRR, no m/r/g Lungs: rales at B bases Gastrointestinal: soft, nontender, nondistended Extremities: Trace edema BLEs, 2+ pedal pulses B, no c/c, tinea pedis Objective Last Vital Signs Temp 37.3 C 03/25/23 15:24 Pulse 83 03/25/23 15:24 Resp 17 03/25/23 15:24 BP 128/85 03/25/23 15:24 Pulse Ox 96 03/25/23 15:24 Laboratory Results - last 24 hr 03/24/23 03/24/23 03/24/23 15:57 15:57 Unknown WBC RBC Hgb Hct MCV MCH MCHC RDW Plt Count MPV Immature Gran % Neutrophils % Lymphocytes % Monocytes % Eosinophils % Basophils % Nucleated RBC % Absolute Neutrophils Absolute Lymphocytes Absolute Monocytes Absolute Eosinophils Absolute Basophils PT INR Sodium 135 L Potassium 4.0 D Chloride 99 Carbon Dioxide 25.7 Anion Gap 10.3 BUN 25 H Creatinine 1.3 Est GFR (CKD-EPI 2020) 58.73 Glucose 176 H Calcium 8.2 L Magnesium Total Bilirubin Conjugated Bilirubin AST ALT Alkaline Phosphatase C-Reactive Protein Total Protein Albumin Procalcitonin 21.2 Add-On Test Request DONE 03/25/23 03/25/23 03/25/23 07:00 07:00 07:00 WBC 12.07 H RBC 4.07 L Hgb 12.2 L Hct 37.2 L MCV 91 MCH 30.0 MCHC 32.8 RDW 14.1 Plt Count 178 MPV 10.9 Immature Gran % 0.7 Neutrophils % 81.9 Lymphocytes % 9.4 Monocytes % 7.3 Eosinophils % 0.2 Basophils % 0.5 Nucleated RBC % 0.0 Absolute Neutrophils 9.89 H Absolute Lymphocytes 1.13 L Absolute Monocytes 0.88 H Absolute Eosinophils 0.02 Absolute Basophils 0.06 PT 44.3 H INR 4.4 H* Sodium 136 Potassium 3.3 L Chloride 99 Carbon Dioxide 26.1 Anion Gap 10.9 BUN 17 Creatinine 0.9 Est GFR (CKD-EPI 2020) 91.31 Glucose 123 H Calcium 8.3 L Magnesium 1.9 Total Bilirubin 0.7 Conjugated Bilirubin 0.3 H AST 36 ALT 44 Alkaline Phosphatase 118 H C-Reactive Protein 21.03 H Total Protein 6.4 Albumin 2.8 L Procalcitonin Add-On Test Request Time Spent with Patient Time Spent with Patient: 25-34 minutes Time was spent: preparing to see the patient(eg.review tests), obtaining and/or reviewing separately otained hiistory, ordering medications,tests, procedures, referring, communicating with other health animal care provider, indepentently interpreting results, counseling the patient and care coordination
[2023-03-25] MEDS: Furosemide 20 MG/2 ML VIAL 10 MG IVP (16:26)
[2023-03-25] MEDS: Potassium Chloride 20 MEQ TABCR 40 MEQ PO (16:27)
[2023-03-25] MEDS: Phytonadione 5 MG TABLET 2.5 MG PO (16:28)
[2023-03-25] MEDS: Acetaminophen 325 MG TAB PO ×2 (16:29→23:16)
[2023-03-25 18:06] LABS: Bilirubin Negative (Negative); Blood Small (Negative); Clarity Clear (Clear); Glucose 100 mg/dL (Negative); Ketones Negative (Negative); Leukocyte Esterase Negative (Negative); Nitrite Negative (Negative); Specific Gravity <= 1.005 (1.005-1.025); Urobilinogen 0.2 mg/dL (Up to 0.2)
[2023-03-25 18:22] LABS: Bacteria Negative HPF (Negative); Crystals Negative HPF (Negative); Epithelial Cells Negative HPF (Negative); Mucus Negative (Negative); WBC 0-2 HPF (0-5)
[2023-03-25 18:23] LABS: C & S Indicated? C&S Done As Ordered
[2023-03-25] MEDS: Insulin Aspart 300 UNITS/3 ML PEN SC (21:15)
[2023-03-26] VITALS (7 sets, daily range): BP systolic 118–159; BP diastolic 77–93; PULSE 74–93; RESP 16–18; TEMP 36.7–37.6; O2SAT 90–96
[2023-03-26] MEDS: PIPERACILLIN/TAZO 4.5 GM in Normal Saline 100 ML IVPB ×4 (02:14→20:02)
[2023-03-26] MEDS: Acetaminophen 325 MG TAB PO (05:09)
--- NOTE | 2023-03-26 05:24 | NUR.NOTE ---
pt alert and orientated x4. Been voiding all night denies pain or discomfort when voiding. O2 sat 90 on RA some wheezing notied placed back on O2 via nc. Gave prn acetaminophen 650 for tempt of 99.6F . Pt in bed with call light in reach. Nursing Note:
[2023-03-26 06:46] LABS: Abs Immature Grans 0.09 10^3/uL (0.0-0.06); Absolute Basophil Count 0.05 10^3/uL (0.0-0.2); Absolute Eosinophil Count 0.13 10^3/uL (0.0-0.7); Absolute Lymphocyte Count 0.54 10^3/uL (1.2-3.4); Absolute Monocyte Count 0.63 10^3/uL (0.1-0.8); Absolute Neutrophil Count 6.35 10^3/uL (1.2-6.7); Basophils % 0.6; Eosinophils % 1.7; HCT 36.2 % (40.0-50.0); Immature Grans % 1.2; Lymphocytes % 6.9; MCH 29.8 pg (27.0-33.0); MCHC 33.1 % (32.0-36.0); MCV 90 fL (80-95); MPV 10.6 fL (8.0-11.0); Monocytes % 8.1; Neutrophils % 81.5; Platelet Count 168 10^3/uL (130-400); RBC 4.03 10^6/uL (4.36-5.78); RDW 13.8 % (11.8-14.1); RDW-SD 45.4 fL; WBC 7.79 10^3/uL (4.4-10.8)
[2023-03-26 07:15] LABS: Prothrombin Time 21.7 sec (9.3-11.0)
[2023-03-26 07:18] LABS: INR 2.1 (0.9-1.1)
[2023-03-26 07:25] LABS: ALT 34 U/L (16-63); AST 24 U/L (15-37); Albumin 2.8 g/dL (3.4-5.0); Alkaline Phosphatase 117 U/L (46-116); Anion Gap 6.7 mmol/L (3-11); BUN 13 mg/dL (7-18); Bilirubin, Direct 0.4 mg/dL (0.0-0.2); Bilirubin, Total 0.8 mg/dL (0.2-1.0); CO2 30.3 mmol/L (21.0-32.0); CREATININE 1.1 mg/dL (0.70-1.30); Calcium 8.6 mg/dL (8.5-10.1); Chloride 97 mmol/L (98-107); Estimated GFR 71.77 (mL/min/1.73m2); Glucose 153 mg/dL (74-106); Magnesium 1.4 mg/dL (1.8-2.4); Potassium 3.4 mmol/L (3.5-5.1); Sodium 134 mmol/L (136-145); Total Protein 6.5 g/dL (6.4-8.2)
--- NOTE | 2023-03-26 08:24 | CMPROGNOTE_ITS ---
Date of service: 03/26/23 Time of Service: 08:24 Care Management Progress Note Progress Note Text Progress Note Text: S/O:Kulwinder was sitting up in bed when CM met with him. He was in better spirits today. He indicated that he is feeling less dizzy and the nausea has subsided. Kulwinder's INR was at 2.1 today. While it is lower than yesterday, it will need to be 1.5 or below before he can have the ERCP. Kulwinder informed CM that while he is disappointed it cannot be done today, he understands the risk of bleeding. He did share that he feels better informed about the plan and what to expect. CM offered activities for some diversion such as puzzle books but Kulwinder declined, stating that he is doing fine with the TV and enjoys watching the game shows and sports. A:Heladio is a 73 year old man admitted on 03/24/23 with nausea, dizziness and dilated CBD P: Kulwinder is waiting to go [place] [facility] [place]. His INR is still supratherapeutic so he must wait at least another day. It will be a down and back procedure and, if he needs surgery, it will be done at [facility]. When ready, Kulwinder will be discharged home with no new services. He will follow up with his surgeon, PCP and plan of care and transport with family. CM will follow and assess for ongoing discharge concerns.
[2023-03-26] MEDS: Venlafaxine 50 MG TAB PO (08:59)
[2023-03-26] MEDS: Aspirin E.C. 81 MG TABEC PO (08:59)
[2023-03-26] MEDS: Potassium Chloride 20 MEQ TABCR 40 MEQ PO (09:00)
[2023-03-26] MEDS: Vitamins B Comp w/C TAB 1 TAB PO (09:01)
[2023-03-26] MEDS: Ketoconazole 2% CREAM 15 GM TUBE TP (09:11)
[2023-03-26] MEDS: MAGNESIUM SULFATE 4 GM/100 ML BAG IVPB (09:12)
[2023-03-26] MEDS: Insulin Aspart 300 UNITS/3 ML PEN SC ×4 (09:17→20:55)
--- NOTE | 2023-03-26 10:41 | W.INDIABCONS ---
Date of service: 03/26/23 Time of Service: 10:41 Diabetes Inpatient Consult Reason for Visit: routine diabetes consult DESCRIPTION/ASSESSMENT: Assessment: 73yo male admitted with acute hypokalemia, common bile duct dilation, baceremia. PMH significant for DMII and is on glipizide and metformin at home - SSI duing admission. Pt will be NPO at midnight tonight for ERCP at [facility] tomorrow. Fair intake and stable weight. Pt at low nutrition risk currently. INTERVENTION: no aggressive nutrition intervention at this time as pt is at low nutrition risk PLAN: will monitor labs, diet tolerance for indication of further nutrition intervention Time Spent in Nutritional Counseling and Treatment: 0
--- NOTE | 2023-03-26 13:44 | CHAPLAIN ---
I had a brief visit with Heladio yesterday. I explained my role and offered support. Heladio said he's in touch with his family. I will try to visit again today.
--- NOTE | 2023-03-26 17:31 | PGE_ITS ---
Date of Service Date of service: 03/26/23 Time of Service: 17:31 Assessment and Plan Assessment and plan (1) Common bile duct dilation: Status: Acute Assessment and plan: With evidence of ascending cholangitis. GNR in blood, still not speciated. Blood cx repeated this am Continue zosyn. (I added probiotics). Trend procalcitonin/CRP. Defer arrangements of ERCP to general surgery. (2) Gram-negative bacteremia: Status: Acute Assessment and plan: As above (3) Diarrhea: Status: Acute Assessment and plan: Check C.diff (4) Dehydration: Status: Resolved Assessment and plan: Euvolemic today. Avoid IVF. (5) Fluid overload: Status: Resolved Assessment and plan: As above (6) Hypomagnesemia: Status: Resolved Assessment and plan: Recheck in am. (7) Acute hypokalemia: Status: Acute Assessment and plan: Replete (8) Diabetes mellitus type 2, controlled, without complications: Assessment and plan: Cover with SSI (9) Constipation: Status: Resolved Assessment and plan: Make bowel medications prn. Will still check for C. diff. (10) Chronic pain: Status: Chronic Assessment and plan: Continue home medications (11) Supratherapeutic INR: Status: Acute Assessment and plan: HOld coumadin. INR is actually 2.1 today. S/p 2.5 mg of Vitamin K on 03/25/23. (12) Hypotension: Status: Resolved Assessment and plan: I think this was impending septic shock. Appears to have resolved. (13) DVT prophylaxis: Status: Acute Assessment and plan: INR 2.1 today - not requiring additional ppx. (14) Discharge planning issues: Status: Acute Assessment and plan: Full code Anticip[id number] [place] [facility] [place]. Subjective Subjective Interval history since last seen: Mr Clemens feels a little dizzy and has been having numerous watery stools. Denies CP, SOB, nausea, abdominal pain. Hopefully will be going for ERCP tomorrow. Exam Narrative Exam Narrative: General: Pleasant male who is laying in bed, watching television, A&Ox3, NAD HEENT: EOMI, MMM Cardiovascular: RRR, no m/r/g Lungs: CTAB Gastrointestinal: soft, nontender, nondistended Extremities: no BLEs, 2+ pedal pulses B, no c/c, tinea pedis Objective Last Vital Signs Temp 37.6 C H 03/26/23 15:24 Pulse 88 03/26/23 15:24 Resp 18 03/26/23 15:24 BP 142/87 H 03/26/23 15:24 Pulse Ox 95 03/26/23 15:24 Laboratory Results - last 24 hr 03/25/23 03/26/23 03/26/23 17:50 06:20 06:20 WBC RBC Hgb Hct MCV MCH MCHC RDW Plt Count MPV Immature Gran % Neutrophils % Lymphocytes % Monocytes % Eosinophils % Basophils % Nucleated RBC % Absolute Neutrophils Absolute Lymphocytes Absolute Monocytes Absolute Eosinophils Absolute Basophils PT 21.7 H INR 2.1 H Sodium 134 L Potassium 3.4 L Chloride 97 L Carbon Dioxide 30.3 Anion Gap 6.7 BUN 13 Creatinine 1.1 Est GFR (CKD-EPI 2020) 71.77 Glucose 153 H Calcium 8.6 Magnesium 1.4 L Total Bilirubin 0.8 Conjugated Bilirubin 0.4 H AST 24 ALT 34 Alkaline Phosphatase 117 H Total Protein 6.5 Albumin 2.8 L Urine Color Yellow Urine Clarity Clear Urine pH 5.0 Ur Specific [place] <= 1.005 Urine Protein Negative Urine Ketones Negative Urine Blood Small H Urine Nitrite Negative Urine Bilirubin Negative Urine Urobilinogen 0.2 Ur Leukocyte Esterase Negative Urine RBC 5-10 H Urine WBC 0-2 Ur Epithelial Cells Negative Urine Crystals Negative Urine Bacteria Negative Urine Mucus Negative Ur Culture Indicated? C&S Done As Ordered Urine Glucose 100 H 03/26/23 06:20 WBC 7.79 RBC 4.03 L Hgb 12.0 L Hct 36.2 L MCV 90 MCH 29.8 MCHC 33.1 RDW 13.8 Plt Count 168 MPV 10.6 Immature Gran % 1.2 Neutrophils % 81.5 Lymphocytes % 6.9 Monocytes % 8.1 Eosinophils % 1.7 Basophils % 0.6 Nucleated RBC % 0.0 Absolute Neutrophils 6.35 Absolute Lymphocytes 0.54 L Absolute Monocytes 0.63 Absolute Eosinophils 0.13 Absolute Basophils 0.05 PT INR Sodium Potassium Chloride Carbon Dioxide Anion Gap BUN Creatinine Est GFR (CKD-EPI 2020) Glucose Calcium Magnesium Total Bilirubin Conjugated Bilirubin AST ALT Alkaline Phosphatase Total Protein Albumin Urine Color Urine Clarity Urine pH Ur Specific [place] Urine Protein Urine Ketones Urine Blood Urine Nitrite Urine Bilirubin Urine Urobilinogen Ur Leukocyte Esterase Urine RBC Urine WBC Ur Epithelial Cells Urine Crystals Urine Bacteria Urine Mucus Ur Culture Indicated? Urine Glucose Time Spent with Patient Time Spent with Patient: 25-34 minutes Time was spent: preparing to see the patient(eg.review tests), obtaining and/or reviewing separately otained hiistory, ordering medications,tests, procedures, referring, communicating with other health day care home mother, indepentently interpreting results, counseling the patient and care coordination
[2023-03-26 19:26] LABS: C Diff PCR Negative (Negative)
[2023-03-26] MEDS: Refresh PLUS Eye Drops 0.4ml OP (20:56)
[2023-03-27] VITALS (16 sets, daily range): BP systolic 85–156; BP diastolic 54–93; PULSE 50–80; RESP 16–18; TEMP 35.2–37.2; O2SAT 91–99; BMI 28.9
[2023-03-27] MEDS: Loperamide 2 MG CAP PO (00:01)
[2023-03-27] MEDS: PIPERACILLIN/TAZO 4.5 GM in Normal Saline 100 ML IVPB ×4 (02:24→20:02)
[2023-03-27 06:44] LABS: Abs Immature Grans 0.04 10^3/uL (0.0-0.06); Absolute Basophil Count 0.05 10^3/uL (0.0-0.2); Absolute Lymphocyte Count 1.15 10^3/uL (1.2-3.4); Absolute Monocyte Count 0.87 10^3/uL (0.1-0.8); Absolute Neutrophil Count 4.02 10^3/uL (1.2-6.7); Basophils % 0.8; Eosinophils % 1.6; HGB 13.2 g/dL (13.5-17.5); Immature Grans % 0.6; Lymphocytes % 18.5; MCH 29.7 pg (27.0-33.0); MCV 90 fL (80-95); MPV 10.8 fL (8.0-11.0); Neutrophils % 64.5; Platelet Count 191 10^3/uL (130-400); RBC 4.45 10^6/uL (4.36-5.78); RDW 13.5 % (11.8-14.1); RDW-SD 44.7 fL; WBC 6.23 10^3/uL (4.4-10.8)
[2023-03-27 06:54] LABS: INR 1.3 (0.9-1.1); Prothrombin Time 13.3 sec (9.3-11.0)
[2023-03-27 07:22] LABS: ALT 34 U/L (16-63); AST 23 U/L (15-37); Albumin 2.8 g/dL (3.4-5.0); Alkaline Phosphatase 126 U/L (46-116); Anion Gap 7.9 mmol/L (3-11); BUN 9 mg/dL (7-18); Bilirubin, Direct 0.3 mg/dL (0.0-0.2); Bilirubin, Total 0.6 mg/dL (0.2-1.0); C-Reactive Protein 15.75 mg/dL (0.0-0.3); CO2 29.1 mmol/L (21.0-32.0); CREATININE 1.1 mg/dL (0.70-1.30); Chloride 98 mmol/L (98-107); Estimated GFR 71.77 (mL/min/1.73m2); Glucose 151 mg/dL (74-106); Magnesium 1.7 mg/dL (1.8-2.4); Potassium 3.1 mmol/L (3.5-5.1); Sodium 135 mmol/L (136-145); Total Protein 7.2 g/dL (6.4-8.2)
[2023-03-27 07:34] LABS: Procalcitonin 1.9 ng/mL
--- NOTE | 2023-03-27 07:57 | ANES.PREOP_ITS ---
General Info Date of Service Date Performed: 03/27/23 Height: 5 ft 8 in Weight: 86.4 kg Body Mass Index (BMI): 28.9 Surgical Procedure: Operation Date: 03/27/23 11:55 Proposed Procedure Side Surgeon p Cholecystectomy Laparoscopic w/ Cholangiogram Sanchez Barnes MD Meds Allergies and Home Medications Allergies Allergy/AdvReac Type Severity Reaction Status Date / Time No Known Allergies Allergy Unverified 03/24/23 09:39 Home Medication Medication Instructions Recorded acetaminophen 325 mg tablet 650 mg PO PRN PRN Pain 12/13/12 (Tylenol) aspirin 81 mg tablet,delayed 81 mg PO DAILY 12/13/12 release (Aspir-) carboxymethylcellulose (Methocel E 1 gm miscellaneous DAILY 12/13/12 4 M granules) cholecalciferol (vitamin D3) 1,250 50,000 unit PO DIRECTED 12/13/12 mcg (50,000 unit) capsule hydrochlorothiazide 25 mg tablet 25 mg PO DAILY 12/13/12 lisinopril 10 mg tablet 10 mg PO DAILY 12/13/12 sildenafil 100 mg tablet (Viagra) 100 mg PO PRN 12/13/12 simvastatin 40 mg tablet 40 mg PO QPM 12/13/12 vitamin B complex 1 ea PO DAILY 12/13/12 warfarin 2 mg tablet (Coumadin) 2 mg PO DAILY 12/13/12 glipizide 5 mg tablet 5 mg PO HS 09/06/18 atorvastatin 40 mg tablet 40 mg PO DAILY 01/07/22 empagliflozin 25 mg tablet 25 mg PO DAILY 01/07/22 (Jardiance) irbesartan 150 mg tablet (Avapro) 150 mg PO DAILY 01/07/22 ketorolac 0.5 % eye drops 1 drp ophthalmic (eye) QID 01/07/22 metformin 1,000 mg tablet 1,000 mg PO BID 01/07/22 venlafaxine 100 mg tablet 50 mg PO DAILY 01/07/22 amlodipine 5 mg tablet 5 mg PO DAILY 01/08/22 hydrocodone 7.5 mg-acetaminophen 1 tab PO Q6H PRN PRN 03/24/23 325 mg tablet methadone 10 mg tablet See Rx Instructions .Route .COMPLEX 03/24/23 Current Visit Medications: Current Medications Generic Name Dose Route Start Last Admin Trade Name Freq PRN Reason Stop Dose Admin Acetaminophen 0 mg 03/24/23 11:56 03/26/23 05:09 Acetaminophen 325 Mg Tab PO 650 mg Q4H PRN PRN Administration Hydrocodone Bitart/Acetaminophen 1 tab 03/24/23 15:48 Hydrocodone 7.5/Acetaminophen 325 Tab PO Q6H PRN PRN Al Hydrox/Mg Hydrox/Simethicone 30 ml 03/24/23 11:56 Mylanta Suspension 30 Ml Cup PO Q2H PRN PRN Aspirin 81 mg 03/25/23 08:30 03/26/23 08:59 Aspirin E.C. 81 Mg Tabec PO 81 mg DAILY NGHIA Administration Carboxymethylcellulose Sodium 0 each 03/25/23 22:00 03/26/23 20:56 Refresh Plus Eye Drops 0.4ml OP 1 drp HS NGHIA Administration Dextrose 0 gm 03/24/23 11:59 Glucose Oral Gel 15 Gm/37.5 Gm Tube PO DIRECTED PRN Dextrose/Water 0 gm 03/24/23 11:59 Dextrose 50%-Water 25 Gm/50 Ml Syr IVP DIRECTED PRN Dimethicone/Zinc Oxide 0 gm 03/24/23 11:51 Ambrosio Protect Cream 142 Gm Tube TP PRN PRN Docusate Sodium 100 mg 03/26/23 17:36 Docusate Sodium 100 Mg Cap PO BID PRN PRN Sodium Chloride 500 mls @ 0 mls/hr 03/24/23 11:56 03/24/23 13:30 Saline 500ml Bag IV 0 mls/hr PRN PRN Infusion As Directed Piperacillin Sod/Tazobactam 100 mls @ 200 mls/hr 03/25/23 02:00 03/27/23 03:03 Sod 4.5 gm/ Sodium Chloride IVPB Infused Q6H N[facility]IA Infusion Magnesium Sulfate 2 gm in 50 mls @ 25 mls/hr 03/27/23 07:48 IVPB 03/27/23 09:47 NOW ONE Potassium Chloride 10 meq in 100 mls @ 100 mls/hr 03/27/23 08:00 IVPB 03/27/23 11:59 Q1H [facility] IV Miscellaneous Supplies 1 each 03/24/23 12:00 Iv Access IV DIRECTED NGHIA Indocyanine Green 5 mg 03/27/23 08:30 Indocyanine Green 25 Mg Vial IVP 03/27/23 10:00 0830 [facility] Insulin Aspart 0 units 03/25/23 17:00 03/26/23 20:55 Insulin Aspart 300 Units/3 Ml Pen SC 2 units 0800,1200,1700,2200 N[facility]IA Administration Protocol Ketoconazole 0 gm 03/25/23 08:30 03/26/23 09:11 Ketoconazole 2% Cream 15 Gm Tube TP 1 applic DAILY N[facility]IA Administration Lactobacillus Acidophilus/Casei 1 cap 03/27/23 08:30 L. Acidophilus, Casei, Rhamnosus Cap PO DAILY N[facility]IA Loperamide HCl 2 mg 03/26/23 17:31 03/27/23 00:01 Loperamide 2 Mg Cap PO 2 mg QLOOSE PRN Administration Magnesium Hydroxide 30 ml 03/24/23 11:56 Milk Of Magnesia 30 Ml Cup PO DAILY PRN PRN Methadone HCl 10 mg 03/25/23 08:30 03/26/23 09:03 Methadone 10 Mg Tab PO Not Given DAILY NGHIA Methadone HCl 20 mg 03/24/23 20:00 03/26/23 20:11 Methadone 10 Mg Tab PO Not Given QPM [facility]IA Ondansetron HCl 4 mg 03/24/23 13:30 03/25/23 11:23 Ondansetron 4 Mg/2 Ml Vial IVP 4 mg Q6H PRN PRN Administration Polyethylene Glycol 17 gm 03/26/23 17:36 Polyethylene Glycol 3350 17 Gm Packet PO DAILY PRN PRN Sodium Chloride 0 ml 03/24/23 11:56 03/24/23 15:08 Normal Saline Flush 10 Ml Syr IVP 20 ml PRN PRN Administration Venlafaxine HCl 50 mg 03/25/23 08:30 03/26/23 08:59 Venlafaxine 50 Mg Tab PO 50 mg DAILY NGHIA Administration Vitamin B Complex/Vitamin C 1 tab 03/25/23 08:30 03/26/23 09:01 Vitamins B Comp W/C Tab PO 1 tab DAILY N[facility]IA Administration PFSH Active Problems Active Problems: Problem Status Onset Code Diarrhea R19.7 Fluid overload E87.70 Gram-negative bacteremia R78.81 Hypotension I95.9 Supratherapeutic INR R79.1 Discharge planning issues Z02.9 DVT prophylaxis Z29.9 Chronic pain G89.29 Constipation K59.00 Acute hypokalemia E87.6 Hypomagnesemia E83.42 Dehydration E86.0 Vomiting R11.10 Common bile duct dilation K83.8 Adhesive capsulitis of both shoulders M75.01, M75.02 Sacroiliac joint dysfunction of both sides M53.3 S/P colonoscopy ~09/06/18 Z98.890 Colorectal polyps ~09/06/18 K63.5 History of colonic polyps Z86.010 Medical History Medical History Abnormal glucose Carpal tunnel syndrome Diabetes mellitus type 2, controlled, without complications Hypertension Joint pain of leg gold leaf roller current use of anticoagulant Major depressive disorder, single episode Other thrombophilia Tobacco Smoking/Tobacco Use Status: Former Tobacco Use Alcohol Alcohol Intake: current Alcohol intake frequency: a few times a week Alcohol type: hard liquor Substance Use Substance use: Never Substance use type: does not use Vital Signs and Lab Results Vital Signs Most Recent Vital Signs in EMR: Most Recent Vital Signs Temp Pulse Resp BP Pulse Ox 36.3 C L 80 17 142/90 H 96 03/27/23 07:31 03/27/23 07:31 03/27/23 07:31 03/27/23 07:31 03/27/23 07:31 Point of Care Results Point of Care Results: Finger Stick Blood Glucose 147 03/27/23 07:31 Lab Results 03/27/23 06:20 03/27/23 06:20 Blood Type / Crossmatch: No Data to Display Complete Blood Count: White Blood Count 6.23 10^3/uL (4.4-10.8) 03/27/23 06:20 Red Blood Count 4.45 10^6/uL (4.36-5.78) 03/27/23 06:20 Hemoglobin 13.2 g/dL (13.5-17.5) L 03/27/23 06:20 Hematocrit 40.0 % (40.0-50.0) 03/27/23 06:20 Platelet Count 191 10^3/uL (130-400) 03/27/23 06:20 Complete Metabolic Panel: Sodium 135 mmol/L (136-145) L 03/27/23 06:20 Potassium 3.1 mmol/L (3.5-5.1) L 03/27/23 06:20 Chloride 98 mmol/L (98-107) 03/27/23 06:20 Carbon Dioxide 29.1 mmol/L (21.0-32.0) 03/27/23 06:20 BUN 9 mg/dL (7-18) 03/27/23 06:20 Creatinine 1.1 mg/dL (0.70-1.30) 03/27/23 06:20 Est GFR (CKD-EPI 2020) 71.77 (mL/min/1.73m2) 03/27/23 06:20 Magnesium 1.7 mg/dL (1.8-2.4) L 03/27/23 06:20 Calcium 9.0 mg/dL (8.5-10.1) 03/27/23 06:20 Albumin 2.8 g/dL (3.4-5.0) L 03/27/23 06:20 Glucose 151 mg/dL (74-106) H 03/27/23 06:20 C-Reactive Protein 15.75 mg/dL (0.0-0.3) H 03/27/23 06:20 Liver Function Panel: Alanine Aminotransferase (ALT/SGPT) 34 U/L (16-63) 03/27/23 06: 20 Aspartate Amino Transf (AST/SGOT) 23 U/L (15-37) 03/27/23 06:20 Coagulation Panel: INR International Normalized Ratio 1.3 (0.9-1.1) H 03/27/23 06 :20 Prothrombin Time 13.3 sec (9.3-11.0) H 03/27/23 06:20 Activated Partial Thromboplast Time 35.2 sec (21.5-31.9) H 03/24/23 09:50 Cardiac Panel: Troponin I < 50 ng/L (<or=60) 03/24/23 Arterial Blood Gas: No Data to Display Venous Blood Gas: Venous Blood pH 7.42 (7.31-7.41) H 03/24/23 09:50 Venous Blood Partial Pressure O2 55 mmHg 03/24/23 09:50 Venous Blood Partial Pressure CO2 40 mmHg (41-51) L 03/24/23 09 :50 Venous Blood Oxygen Saturation 88 % 03/24/23 09:50 Venous Blood HCO3 26 mmol/L (23-28) 03/24/23 09:50 Venous Blood Base Excess 1 mmol/L (-2-3) 03/24/23 09:50 Venous Blood Total Carbon Dioxide 23 mmol/L (24-29) L 03/24/23 09:50 Pancreas Panel: Lipase 31 U/L (16-77) 03/24/23 09:50 Thyroid Panel: No Data to Display Infectious Disease: No Data to Display Blood Cultures: No Data to Display Toxicology Panel: No Data to Display Imaging and Studies Imaging and Studies Study information below may be from another EMR and interpreted by another provider. Please see original notes in EMR for more complete details. EKG Summary: 03/24/23: sinus tach Anesthesia Assessment and Plan Anesthesia History Personal History: No History of Anesthesia Complications Family History: No Family History of Anesthesia Complications Exercise Tolerance Exercise Tolerance: Metabolic Equivalents>4 Cardiac & Pulmonary Exam Cardiac Exam: Normal S1/S2 Heart Sounds Pulmonary Exam: Clear Bilateral Breath Sounds Implantable Cardiac Device Does patient have a Pacemaker or an ICD?: No Airway Exam Known Difficult Airway: No Mallampati Class: 3 Mouth Opening: Narrow (< 3cm) Thyromental Distance: Less than 3 cm Neck Range of Motion: Limited ROM Neck Circumference: Normal Teeth Condition: Generalized Poor Dentition ASA Classification ASA Score: ASA 3 Emergency Case?: No NPO Status NPO Status: NPO Clears >2 hours, Solids >8 hours Anesthesia Plan Resuscitation Status: Full Code Anesthesia Technique: General Anesthesia Airway Planned: Endotracheal Tube Monitors Used: Standard Monitors Preoperative Comments:: 73 yo male for lap leonardo. presented to the ED 03/24/23 with dizziness/syncope. found to be dehydrate with CBD dilation. 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 On pip/tax 4.5 every 6 hrs, last dose at ~0900. getting K and Mg now. Plan: GAZAHRA, +/- 2nd IV/midline.
--- NOTE | 2023-03-27 08:09 | PDOC.CMPRO ---
Date of service: 03/27/23 Time of Service: 15:31 Care Management Progress Note Progress Note Text Progress Note Text: S/O:Kulwinder was sitting up in bed eating ice cream when CM met with him. He had just returned from surgery (laparoscopic cholecystectomy) and was hungry. Kulwinder denied having any pain at that time and stated that he was happy that the surgery was over. He has been told that he may be discharged over the weekend. He denied the need for any services. A:Heladio is a 73 year old man admitted on 03/24/23 with nausea, dizziness and dilated CBD P: Kulwinder was waiting to go [place] [facility] [place] however the decision was made this morning to do the cholecystectomy now. It appears he has passed the stone and his WBC and bilirubin have normalized. His INR was also down to 1.3, makimg surgery possible.? Kulwinder will be discharged home with no new services. He will follow up with his surgeon, PCP and plan of care and transport with family. CM will follow and assess for ongoing discharge concerns.
--- NOTE | 2023-03-27 08:31 | PDOC.CMPRO ---
Date of service: 03/27/23 Time of Service: 08:31 Care Management Progress Note Progress Note Text Progress Note Text: S/O:Kulwinder was sitting up in bed when CM met with him. A:Heladio is a 73 year old man admitted on 03/24/23 with nausea, dizziness and dilated CBD P: Kulwinder is waiting to go to [facility] [place] for an [place]. His INR is still supratherapeutic so he must wait at least another day. It will be a down and back procedure and, if he needs surgery, it will be done at [facility]. When ready,? Kulwinder will be discharged home with no new services. He will follow up with his surgeon, PCP and plan of care and transport with family. CM will follow and assess for ongoing discharge concerns.
[2023-03-27] MEDS: Ketoconazole 2% CREAM 15 GM TUBE TP (08:35)
[2023-03-27] MEDS: MAGNESIUM SULFATE 2 GM/50 ML BAG IVPB (09:30)
[2023-03-27] MEDS: POTASSIUM CHLORIDE 10 MEQ/100 ML BAG 100 MEQ IVPB ×4 (09:31→16:33)
[2023-03-27] MEDS: Indocyanine green 25 MG VIAL 5 MG IVP (11:30)
--- NOTE | 2023-03-27 11:48 | W.PM.PROGNOT ---
Date of Service Date of service: 03/27/23 Time of Service: 11:49 Assessment and Plan Assessment and plan (1) Common bile duct dilation: Status: Acute Assessment and plan: MRCP on 03/24 Demonstrated possible stone in the common bile duct. Bilirubin normalized and it appears that the stone has removed. Discussed proceeding with Laparoscopic cholecystectomy. All questions were answered to patient satisfaction. WBC has normalized. Will order ICG to be administered preoperatively. I saw and examined Alannah and I agree with the note started by Milena. It appears that he most likely cleared the stone on his own has his biochemistry has normalized and he ahs been feeling better. INR is also normal this morning. At this point, I think the safest plan is cholecystectomy to reduce the likelihood of recurrent choledocolithiasis. Especially since his Warfarin will need to be resumed. We discussed the risks and benefits and he agrees to proceed to the OR Subjective Subjective Interval history since last seen: patient awaiting to have his gallbladder removed today. He describes he is feeling a little nervous about it. Exam Const General: cooperative, healthy appearing and comfortable Orientation: alert and awake Resp Effort & Inspection: normal respiratory effort, no audible wheezes and no cough GI Inspection: normal to inspection Palpation: soft, no guarding and nontender Objective Last Vital Signs Temp 36.2 C L 03/27/23 11:03 Pulse 67 03/27/23 11:03 Resp 17 03/27/23 11:03 BP 156/93 H 03/27/23 11:03 Pulse Ox 96 03/27/23 11:03 Laboratory Results - last 24 hr 03/26/23 03/27/23 03/27/23 18:32 06:20 06:20 WBC RBC Hgb Hct MCV MCH MCHC RDW Plt Count MPV Immature Gran % Neutrophils % Lymphocytes % Monocytes % Eosinophils % Basophils % Nucleated RBC % Absolute Neutrophils Absolute Lymphocytes Absolute Monocytes Absolute Eosinophils Absolute Basophils PT 13.3 H INR 1.3 H Sodium 135 L Potassium 3.1 L Chloride 98 Carbon Dioxide 29.1 Anion Gap 7.9 BUN 9 Creatinine 1.1 Est GFR (CKD-EPI 2020) 71.77 Glucose 151 H Calcium 9.0 Magnesium 1.7 L Total Bilirubin 0.6 Conjugated Bilirubin 0.3 H AST 23 ALT 34 Alkaline Phosphatase 126 H C-Reactive Protein 15.75 H Total Protein 7.2 Albumin 2.8 L Procalcitonin Stl C.difficile Tox PCR Negative 03/27/23 03/27/23 06:20 06:20 WBC 6.23 RBC 4.45 Hgb 13.2 L Hct 40.0 MCV 90 MCH 29.7 MCHC 33.0 RDW 13.5 Plt Count 191 MPV 10.8 Immature Gran % 0.6 Neutrophils % 64.5 Lymphocytes % 18.5 Monocytes % 14.0 Eosinophils % 1.6 Basophils % 0.8 Nucleated RBC % 0.0 Absolute Neutrophils 4.02 Absolute Lymphocytes 1.15 L Absolute Monocytes 0.87 H Absolute Eosinophils 0.10 Absolute Basophils 0.05 PT INR Sodium Potassium Chloride Carbon Dioxide Anion Gap BUN Creatinine Est GFR (CKD-EPI 2020) Glucose Calcium Magnesium Total Bilirubin Conjugated Bilirubin AST ALT Alkaline Phosphatase C-Reactive Protein Total Protein Albumin Procalcitonin 1.9 Stl C.difficile Tox PCR Time Spent with Patient Time Spent with Patient: 25-34 minutes Time was spent: preparing to see the patient(eg.review tests), indepentently interpreting results and counseling the patient
[2023-03-27] MEDS: Lactated Ringers 1,000 ML 30 ML IV (12:03)
[2023-03-27] MEDS: Bupivacaine 0.25% Pres-Free 30 ML VIAL (12:51)
--- NOTE | 2023-03-27 13:53 | GB_PTH ---
PATIENT: Heladio Clemens LOC: U#:[id number] AGE/SX: 73/M ROOM: MS.206 RE03/24/[address]: Eugenia Armas MD : [id number] BED: A DIS: 03/30/2023 SPEC #: [id number] RECD: 03/27/23 14:54 STATUS: SARAH REQ #: [id number] EULOGIO: 03/27/23 13:[address]: Eugenia Armas DEPT: Surgical Specimen RECD BY: Yodit Choudhary ENTERED: 03/27/23 14:56 SP TYPE: GB OTHR DR: Elvie Guillen,Farida Good, Manuel ELLIOTT PATEL Tissues: 1 - GALLBLADDER Procedures: GROSS AND MICRO LEVEL 3 Comments: [id number]
[2023-03-27] MEDS: Omnipaque 300 MG/ML 50 ML BTL (13:58)
--- NOTE | 2023-03-27 14:28 | W.ANESPOSTOP ---
Postoperative Evaluation Date, Time and Location Date Performed: 03/27/23 Time Performed: 14:28 Patient Location: Day Surgery Unit Vital Signs Most Recent Imported Vital Signs: Most Recent Vital Signs Temp Pulse Resp BP Pulse Ox 36.2 C L 56 L 18 89/54 L 93 03/27/23 14:22 03/27/23 14:22 03/27/23 14:22 03/27/23 14:22 03/27/23 14:22 Pain Score Most Recent Pain Score: Most Recent Pain Score Pain Level [Generalized] 0 03/26/23 16:43 Pain Level 0 03/27/23 07:31 Assessment Mental Status: Arousable with meaningful communication Airway and Respiratory Function: Patent airway with normal (patient baseline) respiratory exam Cardiovascular Function: Hemodynamically Stable Hydration Status: Adequately Hydrated Nausea & Vomiting: No Nausea or Vomiting Pain: Pain is tolerable per patient Peripheral Nerve Block: Patient did not receive a nerve block
--- NOTE | 2023-03-27 14:45 | DI.RAD_ITS ---
Exam(s) XR CHOLANGIOGRAM OPERATIVE EXAM: XR CHOLANGIOGRAM OPERATIVE CLINICAL HISTORY: GALLSTONES. TECHNIQUE: Fluoroscopy was provided for the referring physician for guidance with performing inter o perative cholangiogram.. COMPARISON: CT CT ABDOMEN PELVIS W from 03/24/2023 FINDINGS: Please see procedure note for details. Fluoro time: 51.7 seconds RADIATION DOSE DELIVERED: tish Bean=15.59 mGy
--- NOTE | 2023-03-27 16:00 | W.PM.OP ---
Date of service: 03/27/23 Time of Service: 16:00 Operative Note Operative Note DATE OF PROCEDURE: 03/27/23 PRE-OP DIAGNOSIS: Choledocholithiasis with cholelithiasis POST-OP DIAGNOSIS: same PROCEDURE: Laparoscopic cholecystectomy with intraoperative cholangiogram SURGEON: Sanchez Barnes DIRECTOR MANUFACTURING ENGINEERING: Milena Lora ANESTHESIA TYPE: General LMA/ETT Refer to Anesthesia Record ESTIMATED BLOOD LOSS: 50 PATHOLOGY: other (Gallbladder) COMPLICATIONS: None Patient was transported to: PACU Patient's condition: stable Indications: Heladio is a 73-year-old male who presents to the hospital with nausea and not feeling well. He was found to have choledocholithiasis with an elevated bilirubin. His past medical history was complicated by a stroke for which she was treated with warfarin. His INR at the time of presentation was around 4. He was admitted to the hospital, started on broad-spectrum antibiotics, and he underwent an MRCP that confirmed choledocholithiasis. Arrangements were made to schedule an ERCP as his INR improved. However, in short order, his bilirubin normalized, suggesting that he passed the stone on his own. Therefore, we talked about the risks and benefits of cholecystectomy, and cholangiogram to confirm a clear bile duct. Findings: No evidence of choledocholithiasis. Test for laparoscopic cholecystectomy Procedure Description: After satisfactory induction of general anesthesia, I prepped and draped the abdomen in usual fashion. Next, I began with a periumbilical incision. I dissected down to the fascia and elevated it with Mike clamps. I incised it sharply. Next, I passed a 12 mm operating port in the umbilical site. I secured it to the fascia with 0 Vicryl stitches. I then insufflated the peritoneal cavity. Next I inserted a 5 mm 30 degree scope and examined the underlying viscera. There was no evidence of injury created upon entry. I then placed the patient in some reverse Trendelenburg and left side down positioning. Then, with the assistance of the laparoscope, I used local anesthetic to anesthetize the midepigastric and 2 right upper quadrant port sites. Under the vision of the laparoscope, I passed 3 more 5 mm ports. I then grasped the gallbladder fundus and elevated cephalad. I began by dissecting the gallbladder infundibulum. I worked in a lateral to medial fashion. There was a prominent node of calot, which did obscure complete visualization of the cystic duct and artery. Therefore, I clipped the attachments, I mobilized the node. Once I skeletonized the cystic duct and cystic artery, with a satisfactory critical view of safety, I carefully isolated the cystic duct. I then used a clamp to occlude the distal portion of the gallbladder infundibulum. Using a cholangiogram kit, I created a small defect in the cystic neck at the proximalmost portion of the cystic duct. I cannulated the duct, and withdrew bile into the syringe. The cystic duct was flushed with saline, and I gently passed the cholangiocatheter distally. With gentle traction on the gallbladder infundibulum there was no resistance, and the catheter passed quite simply. We performed intraoperative cholangiography that showed brisk flow of contrast into the duodenum. I was not able to reflux contrast into the hepatic ducts proper. Having ruled out choledocholithiasis, I removed the cholangiocatheter and doubly clipped and divided the cystic duct and artery. I then used electrocautery to dissect the gallbladder off the gallbladder fossa. I passed the gallbladder into an Endo Catch bag and removed it by way of the umbilical site. I examined the surgical field. It was hemostatic. I then removed the 5 mm ports under the vision of the laparoscope. Finally, I removed the umbilical port site and closed the fascia with Vicryl stitches. Sites were irrigated, and the skin was closed with subcuticular stitches. Bandages were applied, patient was awakened from anesthesia, and transferred to the recovery unit.
[2023-03-27] MEDS: Insulin Aspart 300 UNITS/3 ML PEN SC ×2 (17:02→22:53)
--- NOTE | 2023-03-27 19:32 | PGE_ITS ---
Date of Service Date of service: 03/27/23 Time of Service: 19:32 Assessment and Plan Assessment and plan (1) Common bile duct dilation: Status: Acute Assessment and plan: s/p laparoscopic cholecystectomy. Blood cultures positive for E coli. He remains on Zosyn but probably can be de-escalated to Rocephin. Repeat blood cultures tomorrow. If no growth then I would switch to oral antibiotics, i.e. Cipro (2) Gram-negative bacteremia: Status: Acute Assessment and plan: Remains on Zosyn for E. coli bacteremia. We now have source control since his cholecystectomy. (3) Diarrhea: Status: Acute Assessment and plan: secondary to cholangitis/cholecystitis. C diff was negative. (4) Dehydration: Status: Resolved Assessment and plan: Euvolemic today. Dr. Barnes has resumed a diet. Patient no longer needs iv fluids. (5) Hypomagnesemia: Status: Resolved Assessment and plan: 1.7 today, parenteral supplementation ordered this morning; recheck level in the a.m. (6) Acute hypokalemia: Status: Acute Assessment and plan: K+ 3.1 patient receiving parenteral supplementation; repeat level this afternoon up to 3.7 (7) Diabetes mellitus type 2, controlled, without complications: Assessment and plan: Cover with SSI (8) Constipation: Status: Resolved Assessment and plan: Make bowel medications prn. (9) Chronic pain: Status: Chronic Assessment and plan: Continue home medications (10) Supratherapeutic INR: Status: Acute Assessment and plan: coumadin was held preoperatively and he was given low dose vitamin K to reverse him. INR this morning was 1.3 prior to surgery. will resume warfarin tomorrow. (11) DVT prophylaxis: Status: Acute Assessment and plan: needs SCD until chemoprophylaxis is started. will begin full dose lovenox 1 mg/kg tomorrow until we can get his INR therapeutic (12) Discharge planning issues: Status: Acute Assessment and plan: Full code No ERCP was performed as initially anticipated but rather his bilirubin improved suggesting clearance of his stone and he underwent lap/cholecystectomy. Intraoperative cholangioram was done and demonstrated clearance of his stone. He subsequently had cholecystecotmy performed. Subjective Subjective Interval history since last seen: Patient was seen this evening. I tried twice to see him on days but he went for laparoscopic cholecystectomy. He says he feels much better tonight. Minimal abdominal discomfort. Exam Narrative Exam Narrative: alert and oriented, sitting up watching TV Lungs: clear Heart: RRR Abdomen: soft, a few scattered bowel sounds, laparoscopy wounds are covered w/ bandages but no drainage or erythema and he is nontender Extremities: no edema Objective Last Vital Signs Temp 35.9 C L 03/27/23 18:00 Pulse 69 03/27/23 18:00 Resp 16 03/27/23 18:00 BP 127/83 03/27/23 18:00 Pulse Ox 97 03/27/23 18:00 Laboratory Results - last 24 hr 03/27/23 03/27/23 03/27/23 06:20 06:20 06:20 WBC RBC Hgb Hct MCV MCH MCHC RDW Plt Count MPV Immature Gran % Neutrophils % Lymphocytes % Monocytes % Eosinophils % Basophils % Nucleated RBC % Absolute Neutrophils Absolute Lymphocytes Absolute Monocytes Absolute Eosinophils Absolute Basophils PT 13.3 H INR 1.3 H Sodium 135 L Potassium 3.1 L Chloride 98 Carbon Dioxide 29.1 Anion Gap 7.9 BUN 9 Creatinine 1.1 Est GFR (CKD-EPI 2020) 71.77 Glucose 151 H Calcium 9.0 Magnesium 1.7 L Total Bilirubin 0.6 Conjugated Bilirubin 0.3 H AST 23 ALT 34 Alkaline Phosphatase 126 H C-Reactive Protein 15.75 H Total Protein 7.2 Albumin 2.8 L Procalcitonin 1.9 03/27/23 06:20 WBC 6.23 RBC 4.45 Hgb 13.2 L Hct 40.0 MCV 90 MCH 29.7 MCHC 33.0 RDW 13.5 Plt Count 191 MPV 10.8 Immature Gran % 0.6 Neutrophils % 64.5 Lymphocytes % 18.5 Monocytes % 14.0 Eosinophils % 1.6 Basophils % 0.8 Nucleated RBC % 0.0 Absolute Neutrophils 4.02 Absolute Lymphocytes 1.15 L Absolute Monocytes 0.87 H Absolute Eosinophils 0.10 Absolute Basophils 0.05 PT INR Sodium Potassium Chloride Carbon Dioxide Anion Gap BUN Creatinine Est GFR (CKD-EPI 2020) Glucose Calcium Magnesium Total Bilirubin Conjugated Bilirubin AST ALT Alkaline Phosphatase C-Reactive Protein Total Protein Albumin Procalcitonin Time Spent with Patient Time Spent with Patient: 25-34 minutes Time was spent: preparing to see the patient(eg.review tests), ordering medica tions,tests, procedures, indepentently interpreting results, counseling the patient and care coordination
[2023-03-27 20:22] LABS: Potassium 3.7 mmol/L (3.5-5.1)
[2023-03-27] MEDS: Refresh PLUS Eye Drops 0.4ml OP (22:53)
[2023-03-28] MEDS: PIPERACILLIN/TAZO 4.5 GM in Normal Saline 100 ML IVPB (01:31)
[2023-03-28 03:11] VITALS: BP 137/76; PULSE 51; RESP 16; TEMP 36; O2SAT 96
[2023-03-28 07:09] LABS: HCT 37.7 % (40.0-50.0); HGB 12.6 g/dL (13.5-17.5); MCH 29.9 pg (27.0-33.0); MCHC 33.4 % (32.0-36.0); MCV 90 fL (80-95); MPV 10.9 fL (8.0-11.0); Platelet Count 200 10^3/uL (130-400); RBC 4.21 10^6/uL (4.36-5.78); RDW 13.6 % (11.8-14.1); RDW-SD 44.4 fL; WBC 9.35 10^3/uL (4.4-10.8)
[2023-03-28 07:19] LABS: Prothrombin Time 12.7 sec (9.3-11.0)
[2023-03-28 07:28] LABS: ALT 44 U/L (16-63); AST 36 U/L (15-37); Albumin 2.6 g/dL (3.4-5.0); Alkaline Phosphatase 109 U/L (46-116); Anion Gap 11.6 mmol/L (3-11); BUN 12 mg/dL (7-18); Bilirubin, Total 0.5 mg/dL (0.2-1.0); CO2 27.4 mmol/L (21.0-32.0); Calcium 8.9 mg/dL (8.5-10.1); Chloride 100 mmol/L (98-107); Estimated GFR 80.47 (mL/min/1.73m2); Glucose 216 mg/dL (74-106); Magnesium 1.8 mg/dL (1.8-2.4); Potassium 3.7 mmol/L (3.5-5.1); Sodium 139 mmol/L (136-145); Total Protein 6.8 g/dL (6.4-8.2)
[2023-03-28 07:33] LABS: INR 1.2 (0.9-1.1)
[2023-03-28 07:45] VITALS: BP 139/87; PULSE 58; RESP 16; TEMP 36; O2SAT 99
--- NOTE | 2023-03-28 07:59 | NUR.NOTE ---
Nursing Note: plan of care update:hx of multiple falls, turns self, ambulated independently at home states he has balance issues, will start fall risk precautions, standard pressure ulcer precautions
--- NOTE | 2023-03-28 08:10 | PGE_ITS ---
Date of Service Date of service: 03/28/23 Time of Service: 08:10 Assessment and Plan Assessment and plan (1) Common bile duct dilation: Status: Acute Assessment and plan: Postop day #1 intraoperative cholangiogram along with laparoscopic cholecystectomy. Blood cultures from 03/24/2023 and 03/26/2023 grew E. coli. Initial cultures were pansensitive. Repeat blood cultures from today are pending. This point we can de-escalate his antibiotics from Zosyn down to Rocephin (2) Gram-negative bacteremia: Status: Acute Assessment and plan: Remains on Zosyn for E. coli bacteremia. We now have source control since his cholecystectomy. Blood cultures growing a pansensitive E. coli. We will de- escalate antibiotics to Rocephin. Repeat blood cultures pending from today. (3) Diarrhea: Status: Resolved Assessment and plan: secondary to cholangitis/cholecystitis. C diff was negative. No longer having diarrhea. (4) Hypomagnesemia: Status: Resolved Assessment and plan: 1.8 today, we will keep him on oral supplementation particularly since he takes hydrochlorothiazide at home. (5) Acute hypokalemia: Status: Acute Assessment and plan: Has since been repleted at 3.7. We will keep him on a supplement daily given that he takes a diuretic at home. (6) Diabetes mellitus type 2, controlled, without complications: Assessment and plan: Blood sugars poorly controlled secondary to his infection now his glucose levels are coming down. We will resume his metformin and his empagliflozin. I have adjusted his sliding scale we will give him a one-time dose of Lantus. I expect his sugars will continue to improve now that source control of his infection has been obtained. (7) Constipation: Status: Resolved Assessment and plan: MiraLAX and docusate are ordered as needed (8) Chronic pain: Status: Chronic Assessment and plan: Continue home medications (9) Supratherapeutic INR: Status: Acute Assessment and plan: Warfarin was held perioperatively and he did require vitamin K to reverse him prior to surgery. He is now scheduled to start full dose Lovenox 80 mg subcutaneously every 12 hours. I will restart his warfarin tonight at 3 mg nig htly which had been his previous dose. (10) DVT prophylaxis: Status: Acute Assessment and plan: SCDs and Lovenox. Resume warfarin tonight (11) Discharge planning issues: Status: Acute Assessment and plan: Full code Discharge plans pending resolution of his bacteremia. Once his blood cultures show no growth he can be switched to oral antibiotics and discharged home. Subjective Subjective Interval history since last seen: Patient slept well. Patient passing flatus and had small BM this morning. No nausea and abdomen is w/out pain. Only pain was on his right side. He has hx of remote rib fractures and says that his right side will hurt from time to time w/ lying on his side. Patient is eating well. Exam Narrative Exam Narrative: He is alert and oriented sitting up at the bedside eating breakfast. Lungs are clear to auscultation Heart is regular rate and rhythm no murmur rub Abdomen soft nontender with palpation normal active bowel sounds. Extremities without edema Objective Last Vital Signs Temp 36.0 C L 03/28/23 07:45 Pulse 58 L 03/28/23 07:45 Resp 16 03/28/23 07:45 BP 139/87 03/28/23 07:45 Pulse Ox 99 03/28/23 07:45 Laboratory Results - last 24 hr 03/27/23 03/27/23 03/28/23 14:00 20:07 06:45 WBC RBC Hgb Hct MCV MCH MCHC RDW Plt Count MPV PT 12.7 H INR 1.2 H Sodium Potassium Cancelled 3.7 Chloride Carbon Dioxide Anion Gap BUN Creatinine Est GFR (CKD-EPI 2020) Glucose Calcium Magnesium Total Bilirubin AST ALT Alkaline Phosphatase Total Protein Albumin 03/28/23 03/28/23 06:45 06:45 WBC 9.35 RBC 4.21 L Hgb 12.6 L Hct 37.7 L MCV 90 MCH 29.9 MCHC 33.4 RDW 13.6 Plt Count 200 MPV 10.9 PT INR Sodium 139 Potassium 3.7 Chloride 100 Carbon Dioxide 27.4 Anion Gap 11.6 H BUN 12 Creatinine 1.0 Est GFR (CKD-EPI 2020) 80.47 Glucose 216 H Calcium 8.9 Magnesium 1.8 Total Bilirubin 0.5 AST 36 ALT 44 Alkaline Phosphatase 109 Total Protein 6.8 Albumin 2.6 L Reviewed Pertinent PMH: Yes Objective Narrative Objective Narrative: Blood sugars are running in the high 300s last night and this morning's glucose is 216. Time Spent with Patient Time Spent with Patient: 25-34 minutes Time was spent: preparing to see the patient(eg.review tests), ordering medications,tests, procedures, indepentently interpreting results, counseling the patient and care coordination
[2023-03-28] MEDS: Enoxaparin 80 MG/0.8 ML SYR SC ×2 (08:28→19:12)
[2023-03-28] MEDS: metFORMIN 500 MG TAB 1000 MG PO ×2 (08:29→16:40)
[2023-03-28] MEDS: Aspirin E.C. 81 MG TABEC PO (08:30)
[2023-03-28] MEDS: Venlafaxine 50 MG TAB PO (08:32)
[2023-03-28] MEDS: Vitamins B Comp w/C TAB 1 TAB PO (08:32)
[2023-03-28] MEDS: Empaglifozin 25 MG TAB PO (08:33)
[2023-03-28] MEDS: Normal Saline Flush 10 ML SYR IVP ×2 (08:33→11:17)
[2023-03-28] MEDS: Insulin Aspart 300 UNITS/3 ML PEN SC ×4 (08:37→21:12)
[2023-03-28] MEDS: Magic Mouthwash 119 ML BTL 15 ML PO ×2 (11:17→11:26)
[2023-03-28 11:24] VITALS: BP 134/78; PULSE 63; RESP 16; TEMP 35.8; O2SAT 97
[2023-03-28] MEDS: cefTRIAXone 2 GM/50 ML BAG IVPB (11:27)
[2023-03-28] MEDS: Warfarin 1 MG TAB 2 MG PO (14:01)
[2023-03-28 15:21] VITALS: BP 131/79; PULSE 60; RESP 16; TEMP 36; O2SAT 96
--- NOTE | 2023-03-28 16:20 | W.PM.PROGNOT ---
Date of Service Date of service: 03/28/23 Time of Service: 16:20 Assessment and Plan Assessment and plan (1) Common bile duct dilation: Status: Acute Assessment and plan: I think he is doing well after laparoscopic cholecystectomy. We started therapeutic Lovenox today, and resumed his warfarin anticoagulation. We will see what his INR is tomorrow, and bridge him appropriately. Antibiotics were changed around this morning, and hopefully the blood cultures from today will remain negative. Subjective Subjective Interval history since last seen: Heladio is up and sitting in the chair. He says he feels much better this afternoon. He is more alert and attentive. He says his pain is well controlled, except when he coughs. He has been able to tolerate some breakfast and lunch, with an increased appetite in general. Exam GI Other: His abdomen is soft, nontender and nondistended. Bandages are clean. Objective Last Vital Signs Temp 96.8 F L 03/28/23 15:21 Pulse 60 03/28/23 15:21 Resp 16 03/28/23 15:21 BP 131/79 03/28/23 15:21 Pulse Ox 96 03/28/23 15:21 Laboratory Results - last 24 hr 03/27/23 03/27/23 03/28/23 14:00 20:07 06:45 WBC RBC Hgb Hct MCV MCH MCHC RDW Plt Count MPV PT 12.7 H INR 1.2 H Sodium Potassium Cancelled 3.7 Chloride Carbon Dioxide Anion Gap BUN Creatinine Est GFR (CKD-EPI 2020) Glucose Calcium Magnesium Total Bilirubin AST ALT Alkaline Phosphatase Total Protein Albumin 03/28/23 03/28/23 06:45 06:45 WBC 9.35 RBC 4.21 L Hgb 12.6 L Hct 37.7 L MCV 90 MCH 29.9 MCHC 33.4 RDW 13.6 Plt Count 200 MPV 10.9 PT INR Sodium 139 Potassium 3.7 Chloride 100 Carbon Dioxide 27.4 Anion Gap 11.6 H BUN 12 Creatinine 1.0 Est GFR (CKD-EPI 2020) 80.47 Glucose 216 H Calcium 8.9 Magnesium 1.8 Total Bilirubin 0.5 AST 36 ALT 44 Alkaline Phosphatase 109 Total Protein 6.8 Albumin 2.6 L Time Spent with Patient Time Spent with Patient: 25-34 minutes Time was spent: preparing to see the patient(eg.review tests), indepentently interpreting results and counseling the patient
[2023-03-28] MEDS: Acetaminophen 325 MG TAB PO (19:13)
[2023-03-28 19:21] VITALS: BP 136/78; PULSE 68; RESP 16; TEMP 36.4; O2SAT 97
[2023-03-28] MEDS: Refresh PLUS Eye Drops 0.4ml OP (21:17)
[2023-03-28 23:36] VITALS: BP 158/80; PULSE 67; RESP 16; TEMP 36.5; O2SAT 96
[2023-03-29] VITALS (8 sets, daily range): BP systolic 152–182; BP diastolic 87–97; PULSE 55–86; RESP 16–20; TEMP 35.6–36.9; O2SAT 96–97
[2023-03-29] MEDS: Acetaminophen 325 MG TAB PO ×2 (03:19→07:44)
[2023-03-29] MEDS: Enoxaparin 80 MG/0.8 ML SYR SC ×2 (07:43→19:20)
[2023-03-29] MEDS: Aspirin E.C. 81 MG TABEC PO (07:44)
[2023-03-29] MEDS: Vitamins B Comp w/C TAB 1 TAB PO (07:45)
[2023-03-29] MEDS: Potassium Chloride 10 MEQ CAPCR 20 MEQ PO (07:45)
[2023-03-29] MEDS: Empaglifozin 25 MG TAB PO (07:45)
[2023-03-29] MEDS: metFORMIN 500 MG TAB 1000 MG PO ×2 (07:45→17:19)
[2023-03-29] MEDS: Venlafaxine 50 MG TAB PO (07:45)
[2023-03-29] MEDS: cefTRIAXone 2 GM/50 ML BAG IVPB (07:46)
[2023-03-29] MEDS: Insulin Glargine 300 UNITS/3 ML PEN 10 UNITS SC (08:01)
[2023-03-29] MEDS: Insulin Aspart 300 UNITS/3 ML PEN SC ×4 (08:03→21:37)
[2023-03-29 08:56] LABS: INR 1.3 (0.9-1.1); Prothrombin Time 12.9 sec (9.3-11.0)
--- NOTE | 2023-03-29 09:47 | W.PM.PROGNOT ---
Date of Service Date of service: 03/29/23 Time of Service: 09:47 Assessment and Plan Assessment and plan (1) Common bile duct dilation: Status: Acute Assessment and plan: He is making a nice recovery after cholecystectomy choledocholithiasis. Most recent blood cultures so far are negative. Hopefully, we can switch him over to enteral antibiotics. His INR is still subtherapeutic, so we will continue the Lovenox for right now. Subjective Subjective Interval history since last seen: He had a bowel movement, and feels much better today. His pain is well controlled. He is coughing less frequently. Exam GI Other: Abdomen is soft and nondistended. He is not very tender. His incisions all look great. Objective Last Vital Signs Temp 96.3 F L 03/29/23 07:02 Pulse 55 L 03/29/23 07:02 Resp 16 03/29/23 03:26 BP 152/94 H 03/29/23 07:02 Pulse Ox 96 03/29/23 07:02 Laboratory Results - last 24 hr 03/29/23 08:25 PT 12.9 H INR 1.3 H Time Spent with Patient Time Spent with Patient: 25-34 minutes Time was spent: preparing to see the patient(eg.review tests) and counseling the patient
--- NOTE | 2023-03-29 13:44 | PGE_ITS ---
Date of Service Date of service: 03/29/23 Time of Service: 13:45 Assessment and Plan Assessment and plan (1) Common bile duct dilation: Status: Acute Assessment and plan: Postop day #2 intraoperative cholangiogram along with laparoscopic cholecystectomy. Blood cultures from 03/24/2023 and 03/26/2023 grew E. coli. Initial cultures were pansensitive. Repeat blood cultures from yesterday are no growth. Discontinue ceftriaxone and begin Augmentin. I anticipate discharge tomorrow if okay with surgical service. (2) Paroxysmal atrial fibrillation: Status: Acute Assessment and plan: Patient is no longer on telemetry but heart rhythm sounds to be regular. Continue Lovenox at 1 mg/kg every 12 hours. Continue warfarin with daily monitoring of his INR. 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 He is now exhibiting some hypertensive response I will resume his ARB and diuretic. He had been on herb TON and along with hydrochlorothiazide. We do not carry irbesartan therefore I have substituted losartan 100 mg daily along with a half dose of hydrochlorothiazide 12.5 mg daily. Continue to monitor his electrolytes now that we are resuming his diuretic. (5) Hypomagnesemia: Status: Resolved Assessment and plan: Last electrolytes were from yesterday magnesium is 1.8 potassium is 3.7. I will recheck them in the morning. Continue magnesium and potassium supplementation. (6) Acute hypokalemia: Status: Acute Assessment and plan: As above (7) Diabetes mellitus type 2, controlled, without complications: Assessment and plan: Blood sugars are acceptable. This morning 154 and was up to yesterday was 206. I anticipate that they will continue to improve now that we resumed his oral agents. New empagliflozin 25 mg daily along with metformin 1000 mg twice a day. Continue Lantus 10 units daily along with NovoLog sliding scale. (8) Chronic pain: Status: Chronic Assessment and plan: Continue home medications (9) DVT prophylaxis: Status: Acute Assessment and plan: SCD, Lovenox, warfarin (10) Discharge planning issues: Status: Acute Assessment and plan: Full code Repeat blood cultures no growth. Transition over to oral antibiotics. Anticipate discharge tomorrow morning. Patient will need close follow-up on his INR's and his electrolytes. Subjective Subjective Interval history since last seen: Barbara says he is doing fine. No nausea or vomiting. Abdominal pain is markedly better. The right-sided rib pain also is improved. He is eating well having normal bowel movements. Repeat blood culture showed no growth. Initial blood cultures grew E. coli which was pansensitive. We will transition him over to oral antibiotics today using Augmentin 875 mg twice a day. Anticipate discharge home in the morning. INR still remains subtherapeutic at 1.3 and he needs Lovenox to overlap his warfarin given his prior history of stroke. Exam Narrative Exam Narrative: Heladio is alert oriented person place time circumstance sitting up in his chair talking with his . Lungs are clear to auscultation Heart is regular rate and rhythm no appreciable murmur rub Abdomen soft and nontender normal bowel sounds Lower extremities without edema Objective Last Vital Signs Temp 35.6 C L 03/29/23 10:59 Pulse 71 03/29/23 10:59 Resp 20 03/29/23 10:59 BP 152/87 H 03/29/23 10:59 Pulse Ox 96 03/29/23 10:59 Laboratory Results - last 24 hr 03/29/23 08:25 PT 12.9 H INR 1.3 H Time Spent with Patient Time Spent with Patient: 35-49 minutes Time was spent: preparing to see the patient(eg.review tests), ordering medications,tests, procedures, referring, communicating with other health career placement services counselor, indepentently interpreting results, counseling the patient (And patient's ) and care coordination
[2023-03-29] MEDS: Amoxicillin 875/Clav. 125 TAB PO ×2 (14:02→19:19)
[2023-03-29] MEDS: hydroCHLOROthiazide 12.5 MG TAB PO (14:02)
[2023-03-29] MEDS: Losartan 50 MG TAB 100 MG PO (14:02)
[2023-03-29] MEDS: Refresh PLUS Eye Drops 0.4ml OP (21:38)
[2023-03-30 04:35] VITALS: BP 135/87; PULSE 74; RESP 18; TEMP 36.1; O2SAT 96
[2023-03-30 07:13] LABS: HCT 42.2 % (40.0-50.0); HGB 14.1 g/dL (13.5-17.5); MCH 29.9 pg (27.0-33.0); MCHC 33.4 % (32.0-36.0); MCV 89 fL (80-95); MPV 11.1 fL (8.0-11.0); Platelet Count 259 10^3/uL (130-400); RBC 4.72 10^6/uL (4.36-5.78); RDW 13.4 % (11.8-14.1); RDW-SD 43.9 fL; WBC 7.54 10^3/uL (4.4-10.8)
[2023-03-30 07:31] VITALS: BP 138/87; PULSE 83; TEMP 36.2; O2SAT 95
[2023-03-30 07:33] LABS: Anion Gap 11.8 mmol/L (3-11); BUN 15 mg/dL (7-18); CO2 29.2 mmol/L (21.0-32.0); CREATININE 0.9 mg/dL (0.70-1.30); Chloride 99 mmol/L (98-107); Estimated GFR 91.31 (mL/min/1.73m2); Glucose 146 mg/dL (74-106); Magnesium 1.2 mg/dL (1.8-2.4); Potassium 3.2 mmol/L (3.5-5.1); Sodium 140 mmol/L (136-145)
[2023-03-30 07:34] LABS: INR 1.3 (0.9-1.1); Prothrombin Time 12.9 sec (9.3-11.0)
[2023-03-30 07:56] LABS: Absolute Lymphocyte Count 2.94 10^3/uL (1.2-3.4); Absolute Monocyte Count 0.68 10^3/uL (0.1-0.8); Absolute Neutrophil Count 3.62 10^3/uL (1.2-6.7); Atypical Lymphocytes % 5; Diff Comment Manual Differential; RBC Morphology Normal
[2023-03-30] MEDS: Enoxaparin 80 MG/0.8 ML SYR SC (08:23)
[2023-03-30] MEDS: Venlafaxine 50 MG TAB PO (08:24)
[2023-03-30] MEDS: metFORMIN 500 MG TAB 1000 MG PO (08:25)
[2023-03-30] MEDS: Amoxicillin 875/Clav. 125 TAB PO (08:25)
[2023-03-30] MEDS: Losartan 50 MG TAB 100 MG PO (08:25)
[2023-03-30] MEDS: Vitamins B Comp w/C TAB 1 TAB PO (08:25)
[2023-03-30] MEDS: Empaglifozin 25 MG TAB PO (08:26)
--- NOTE | 2023-03-30 08:26 | PDOC.CMPRO ---
Date of service: 03/30/23 Time of Service: 08:26 Care Management Progress Note Progress Note Text Progress Note Text: S/O:Kulwinder A:Heladio is a 73 year old man admitted on 03/24/23 with nausea, dizziness and dilated CBD P: Kulwinder will be discharged home with no new services, when medically cleared. He will follow up with his surgeon, PCP and plan of care and transport with family. CM will follow and assess for ongoing discharge concerns.
[2023-03-30] MEDS: hydroCHLOROthiazide 12.5 MG TAB PO (08:27)
[2023-03-30] MEDS: Aspirin E.C. 81 MG TABEC PO (08:27)
[2023-03-30] MEDS: Magnesium Oxide 400 MG TAB PO (08:30)
[2023-03-30] MEDS: Insulin Glargine 300 UNITS/3 ML PEN 10 UNITS SC (08:35)
[2023-03-30] MEDS: Insulin Aspart 300 UNITS/3 ML PEN SC ×2 (08:36→11:54)
[2023-03-30] MEDS: Potassium Chloride 10 MEQ CAPCR 20 MEQ PO (08:45)
[2023-03-30] MEDS: MAGNESIUM SULFATE 4 GM/100 ML BAG IVPB (08:59)
--- NOTE | 2023-03-30 10:48 | PGE_ITS ---
Date of Service Date of service: 03/30/23 Time of Service: 10:48 Assessment and Plan Assessment and plan (1) Common bile duct dilation: Status: Acute Assessment and plan: POD #3 laparoscopic cholecystecomty, patient presented initially w/ sepsis and was found to have E. coli bacteremia (pansensitive) but repeat blood cultures have been no growth. Clinically has improved remarkably since surgery. Zosyn has been changed to Augmentin. I would send him home on 7 more days of Augmentin. (2) Paroxysmal atrial fibrillation: Status: Acute Assessment and plan: patient remained in sinus rhythm pre/perioperative. no longer on telemetry. heart rate is regula. He is now on lovenox 80 mg SC q12h while resuming his warfarin. INR still subtherapeutic at 1.3. He is on warfarin 3 mg nightly. He may need more than his usual dose as he did receive vitamin K preoperative to normalize his INR. I will dc him home on 5 mg nightly w/ instruction to check daily INR. Labs should be sent to the [facility] anticoagulation clinic in [place] (3) [facility] current use of anticoagulant: Status: Acute Assessment and plan: Lovenox and Coumadin as above (4) Hypertension: Assessment and plan: improved since beginning him back on losartan and HCTZ but now w/ low K and Mg levels. (5) Hypomagnesemia: Status: Resolved Assessment and plan: 1.2 this morning. Getting oral and parenteral replacement. checking repeat levels today. If normalized then can dc home later today (6) Acute hypokalemia: Status: Acute Assessment and plan: K down to 3.2, getting oral and parenteral replacement. check levels later today and dc home on oral supplements (7) Diabetes mellitus type 2, controlled, without complications: Assessment and plan: blood glucsoe 140 to 160, patient back on oral replacement w/ additional insulin coverage (8) Chronic pain: Status: Chronic Assessment and plan: Continue home medications (9) DVT prophylaxis: Status: Acute Assessment and plan: SCD, Lovenox, warfarin (10) Discharge planning issues: Status: Acute Subjective Subjective Interval history since last seen: patient feels well. Had normal BM yesterday but none today. Voiding well. He took a fall yesterday tripping on his socks and landed on his left hip. He de nies any hip pain or bruising. I told him that from my standpoint he can go home once his low Mg and K levels have been corrected. He was instructed on doing home lovenox injections. he will need Rx for lovenox, potassium, magnesium and antibiotics (I would put him on Augmentin for one week). Exam Narrative Exam Narrative: Heladio is sitting up in his chair talking w/ his partner, no discomfort Lungs: clear Heart: RRR Abdomen: soft, normal bowel sounds, nontender, nondistended Extremities/Hip: no bruising over left hip, normal ROM and normal wt bearing Objective Last Vital Signs Temp 36.2 C L 03/30/23 07:31 Pulse 83 03/30/23 07:31 Resp 18 03/30/23 04:35 BP 138/87 03/30/23 07:31 Pulse Ox 95 03/30/23 07:31 Laboratory Results - last 24 hr 03/30/23 03/30/23 03/30/23 06:18 06:18 06:18 WBC 7.54 RBC 4.72 Hgb 14.1 Hct 42.2 MCV 89 MCH 29.9 MCHC 33.4 RDW 13.4 Plt Count 259 MPV 11.1 H Immature Gran % 0.0 Neutrophils % 48.0 Lymphocytes % 34.0 Atypical Lymphs % 5 Monocytes % 9.0 Eosinophils % 4.0 Basophils % 0.0 Nucleated RBC % 0.0 Absolute Neutrophils 3.62 Absolute Lymphocytes 2.94 Absolute Monocytes 0.68 Absolute Eosinophils 0.30 Absolute Basophils 0.00 RBC Morphology Normal PT 12.9 H INR 1.3 H Sodium 140 Potassium 3.2 L Chloride 99 Carbon Dioxide 29.2 Anion Gap 11.8 H BUN 15 Creatinine 0.9 Est GFR (CKD-EPI 2020) 91.31 Glucose 146 H Calcium 9.0 Magnesium 1.2 L Time Spent with Patient Time Spent with Patient: 25-34 minutes Time was spent: preparing to see the patient(eg.review tests), ordering medications,tests, procedures, referring, communicating with other health administrator health care facility, indepentently interpreting results, counseling the patient and care coordination
[2023-03-30 11:16] LABS: Magnesium 2.7 mg/dL (1.8-2.4); Potassium 3.2 mmol/L (3.5-5.1)
[2023-03-30 11:45] VITALS: BP 112/76; PULSE 94; TEMP 36.1; O2SAT 96
--- NOTE | 2023-03-30 12:33 | W.PM.PROGNOT ---
Date of Service Date of service: 03/30/23 Time of Service: 12:00 Assessment and Plan Assessment and plan (1) Common bile duct dilation: Status: Acute Assessment and plan: Postop day #3 intraoperative cholangiogram along with laparoscopic cholecystectomy. Blood cultures from 03/24/2023 and 03/26/2023 grew E. coli. Initial cultures were pansensitive. Repeat blood cultures from 03/28 have no growth x 48 hours. He will be discharged on Augmentin for 4 more days Follow up with Dr. Barnes next week Appreciate Hospitalist assistance with this complex patient (2) Diarrhea: Status: Resolved Assessment and plan: Resolved (3) Hypomagnesemia: Status: Resolved Assessment and plan: Repleated by hospitalist. Normal at 11 today (4) Acute hypokalemia: Status: Acute Assessment and plan: slightly low still. On supplementation (5) Chronic pain: Status: Chronic Assessment and plan: Continue home medications (6) DVT prophylaxis: Status: Acute Assessment and plan: Warfarin restarted post-op. INR today 1.3 Will be discharged on Lovenox while his INR is not therapeutic. Follow up with PCP for INR monitoring Subjective Subjective Interval history since last seen: Helaido is doing well postoperatively. He has been eating without nausea or vomiting. His pain is well-controlled. He had a bowel movement on Thursday and feels like he is going to have another 1. He has been afebrile. He continues to be on Lovenox but was also started on Coumadin. Exam Const General: cooperative, comfortable and no acute distress Nutritional Appearance: average body habitus Orientation: alert and oriented x3 HENMT Head: normocephalic and atraumatic Resp Effort & Inspection: normal respiratory effort Auscultation: clear to auscultation bilaterally Cardio Rate: regular rate and bradycardic GI Inspection: incision (c/d/i) Palpation: soft, no hepatosplenomegaly and nontender Auscultation: normal bowel sounds Objective Last Vital Signs Temp 97.0 F L 03/30/23 11:45 Pulse 94 H 03/30/23 11:45 Resp 18 03/30/23 04:35 BP 112/76 03/30/23 11:45 Pulse Ox 96 03/30/23 11:45 Laboratory Results - last 24 hr 03/30/23 03/30/23 03/30/23 06:18 06:18 06:18 WBC 7.54 RBC 4.72 Hgb 14.1 Hct 42.2 MCV 89 MCH 29.9 MCHC 33.4 RDW 13.4 Plt Count 259 MPV 11.1 H Immature Gran % 0.0 Neutrophils % 48.0 Lymphocytes % 34.0 Atypical Lymphs % 5 Monocytes % 9.0 Eosinophils % 4.0 Basophils % 0.0 Nucleated RBC % 0.0 Absolute Neutrophils 3.62 Absolute Lymphocytes 2.94 Absolute Monocytes 0.68 Absolute Eosinophils 0.30 Absolute Basophils 0.00 RBC Morphology Normal PT 12.9 H INR 1.3 H Sodium 140 Potassium 3.2 L Chloride 99 Carbon Dioxide 29.2 Anion Gap 11.8 H BUN 15 Creatinine 0.9 Est GFR (CKD-EPI 2020) 91.31 Glucose 146 H Calcium 9.0 Magnesium 1.2 L 03/30/23 11:00 WBC RBC Hgb Hct MCV MCH MCHC RDW Plt Count MPV Immature Gran % Neutrophils % Lymphocytes % Atypical Lymphs % Monocytes % Eosinophils % Basophils % Nucleated RBC % Absolute Neutrophils Absolute Lymphocytes Absolute Monocytes Absolute Eosinophils Absolute Basophils RBC Morphology PT INR Sodium Potassium 3.2 L Chloride Carbon Dioxide Anion Gap BUN Creatinine Est GFR (CKD-EPI 2020) Glucose Calcium Magnesium 2.7 H Time Spent with Patient Time Spent with Patient: <25 minutes Time was spent: preparing to see the patient(eg.review tests), obtaining and/or reviewing separately otained hiistory, indepentently interpreting results and counseling the patient
--- NOTE | 2023-03-30 13:19 | PDOC.CMDIS ---
Date of service: 03/30/23 Time of Service: 13:20 LACE Index Scoring Tool Questions: Length of Stay (in days): 4 - 6 Was the patient admitted via the E.D.?: Yes Comorbidities: Diabetes w/o Complication E.D. Visits: 1 Answers: Total Score: 9 Risk of Readmission: Low Risk Care Management Discharge Plan Reason for Hospitalization: CBD dilation Discharge Plan: Kulwinder will be discharged home with no new services. he will follow up with surgery, his PCP and plan of care and transport with family. Patient/Family Education Needs: Review of discharge instructions including diet, activity, limitations, follow up plan and discuss Ask Me Three
--- NOTE | 2023-03-30 13:50 | DSE_ITS ---
Date of service: 03/30/23 Time of Service: 13:50 DS: Diagnosis Discharge Diagnosis (1) Common bile duct dilation: Status: Resolved (2) Diarrhea: Status: Resolved (3) Hypomagnesemia: Status: Resolved (4) Acute hypokalemia: Status: Acute (5) Chronic pain: Status: Chronic (6) DVT prophylaxis: Status: Deleted Discharge Plan Disposition Patient Disposition: Home Condition: Good Discharge Details Reason For Visit: N/V,Dehydration,Hypokalemia,Hypomagnesemia,Dilated Admit Date/Time: 03/24/23 11:55 Admit Provider: Eugenia Armas Attending Provider: Eugenia Armas Primary Care Provider: LEXI PATEL [facility] Hospital Course: 73-year-old male with a history of CVA chronically anticoagulated with warfarin, essential pretension, type 2 diabetes mellitus, hyperlipidemia presented emergency department on 03/24/2023 with complaints of nausea vomiting chills and rigors and constipation x [address] of the abdomen demonstrated dilated common bile duct with mild intrahepatic biliary dilatation. MRCP demonstrated dilatation of common bile duct with probable distal common bile duct stone. Laboratory abnormalities are consistent with acute cholestasis with elevated total bilirubin 1.6 alkaline phosphatase 186 mild transaminase elevation with AST 72 ALT 59. He was found to be dehydrated with prerenal azotemia and hypokalemic and hypomagnesemic. His INR was elevated at 4.8. Patient was admitted to the medical service with consultation with surgery. Patient's blood cultures came back positive for gram-negative rods eventually growing E. coli. He was initially treated with Zosyn. [facility] was contacted for possible ERCP. Overnight his LFTs and bilirubin had normalized. He was subsequently seen by Dr. Sanchez Barnes who proceeded with laparoscopic cholecystectomy along with intraoperative cholangiograms. His ductal stone had passed and he underwent successful laparoscopic cholecystectomy. Once his blood cultures came back positive for pansensitive E. coli he was switched to high-dose Rocephin. Postoperative course was complicated by low potassium levels which were horace ected with supplementation. Postoperatively he was put on therapeutic Lovenox at 80 mg subcutaneously every 12 hours. He was resumed on his warfarin. He was evaluated by physical therapy. His diet was advanced postoperatively. Postoperatively his blood cultures came back no growth as of 03/28/2023 and remain no growth. He was switched from IV antibiotics to oral antibiotics Augmentin and discharged home in markedly improved condition to complete a weeks worth of Augmentin 875 mg twice a day. While in the hospital nursing instruction on how to perform self injections of Lovenox. He was instructed that he would need to overlap his Lovenox and his warfarin until he had to consecutive days of therapeutic INR is greater than 2.1. At the time of discharge his white cell count was normal at 7500 he was not anemic hemoglobin is 14 grams. He still had some issues with hypokalemia with a potassium 3.2 and he was discharged home on continued potassium supplementation. Magnesium was normal at discharge at 2.7. At the time of discharge she was prescribed Augmentin 875 mg orally twice a day for 7 days. Lovenox 80 mg subcutaneously every 12 hours for the next 7 days or until his prothrombin INR is greater than 2.0 x 2 consecutive days. He was prescribed hydrochlorothiazide 12.5 mg daily. Magnesium oxide 4 mg twice a day and potassium chloride 20 mill equivalents orally twice a day. He was given instructions on how to use enoxaparin. He was given appointment to follow-up with Dr. Mike Armas on 04/06/2023 at 10 AM. He is to follow-up with Lexi Patel to the [facility] he was told nurse from the [facility] would call with an appointment. He was given instructions to repeat his pro time daily for the next 7 days with results to be called in from [facility] to the [facility] warfarin clinic. He is get a repeat BMP and magnesium level 2 days post discharge. Home Meds and New Rx's Prescriptions: New enoxaparin [Lovenox] 80 mg/0.8 mL syringe 80 mg subcut Q12H 7 Days Qty: 11.2 0RF Rx Instructions: continue lovenox shots until your prothrombin INR is greater than 2.0 x two consecutive days amoxicillin-pot clavulanate 875-125 mg tablet 1 tab PO BID 7 Days Qty: 14 0RF potassium chloride 20 mEq tablet extended release 20 meq PO BID Qty: 60 0RF magnesium oxide 400 mg magnesium tablet 400 mg PO BID Qty: 60 0RF Continued atorvastatin 40 mg tablet 40 mg PO DAILY Jardiance 25 mg tablet 25 mg PO DAILY irbesartan [Avapro] 150 mg tablet 150 mg PO DAILY metformin 1,000 mg tablet 1,000 mg PO BID venlafaxine 100 mg tablet 50 mg PO DAILY ketorolac 0.5 % drops 1 drp ophthalmic (eye) QID amlodipine 5 mg tablet 5 mg PO DAILY acetaminophen [Tylenol] 325 MG tablet 650 mg PO PRN PRN (Reason: Pain) aspirin [Aspir-81] 81 MG tablet,delayed release (DR/EC) 81 mg PO DAILY sildenafil [Viagra] 100 MG tablet 100 mg PO PRN simvastatin 40 MG tablet 40 mg PO QPM warfarin [Coumadin] 2 MG tablet 2 mg PO DAILY Patient Comments: 12/13/12: 4 mg daily except M and Fri when he takes 3 mg. mrf vitamin B complex 1 EACH capsule 1 ea PO DAILY Methocel E 4 M 1 GM granules 1 gm Miscellaneous DAILY cholecalciferol (vitamin D3) 50,000 UNIT capsule 50,000 unit PO DIRECTED Patient Comments: weekly on Thu. methadone 10 mg tablet See Rx Instructions .ROUTE .COMPLEX Patient Comments: TAKE 1 TABLET BY MOUTH EVERY MORNING AND TAKE 2 TABLET EVERY EVENING ON DAILY BASIS FOR CHRONIC PAIN Rx Instructions: TAKE 1 TABLET BY MOUTH EVERY MORNING AND TAKE 2 TABLET EVERY EVENING ON DAILY BASIS FOR CHRONIC PAIN hydrocodone-acetaminophen 7.5-325 mg tablet 1 tab PO Q6H PRN PRN Patient Comments: TAKE 1 TABLET BY MOUTH EVERY 6 HOURS NEEDED FOR CHRONIC PAIN glipizide 5 mg Tablet 5 mg PO HS Changed hydrochlorothiazide 25 MG tablet 12.5 mg PO DAILY Qty: 0 0RF Discontinued lisinopril 10 MG tablet 10 mg PO DAILY Discharge Instructions Instructions: Enoxaparin (By injection) Additional Instructions: Please take coumadin (warfarin) 6 mg nightly and continue your lovenox shots 80 mg subcutaneouly every 12h for the next week until your prothrombin time INR is over 2.0 for two consecutive days. After that you may stop the lovenox shots. Take Augmentin 875 mg twice a day for next week. This is an antibiotics targeted to the E coli infection you had from your bile duct and gall bladder infection Follow up w/ Dr. Armas or Dr. Barnes in the surgical clinic next week. Get follow up labs starting on Thursday. Get daily prothrombin times checked daily for next week until the INR is over 2.0 and check w/ your provider at the [facility] to adjust your coumadin dosing. You have been started on supplemental magnesium and potassium to correct for deficiencies in both caused by your use of diuretics (hydrochlorothiazide). A repeat magnesium and potassium level has been ordered for Sunday 04/01. Your provider should call you with the results and direct you on how to adjust your replacements. Stand Alone Forms: Nursing Discharge Form Referrals: Eugenia Armas MD [ [facility] STAFF PHYSICIAN] - 04/06/23 10:00 am () LEXI PATEL [Primary Care Provider] - (A Nurse from the [facility] will call you with an Appointment ) Activity:: Activity as Tolerated Equipment/Supplies:: No Equipment Needed Diet:: Carb Counting Discharge Orders Discharge Orders: Discharge Order (Routine); Ordered 03/30/23 Ordered By: Ramon Chowdary Other Ambulatory Orders: Basic Metabolic Panel (Routine) Timeframe: 2 Days Facility: [facility] - Location: Laboratory Outpatient - [facility] Ordered By: Ramon Chowdary Magnesium (Routine) Timeframe: 2 Days Facility: [facility] - Location: Laboratory Outpatient - [facility] Ordered By: Ramon Chowdary Prothrombin Time (DAILY) Timeframe: [id number] Facility: [facility] - Location: Laboratory Outpatient - [facility] Ordered By: Ramon Chowdary Prothrombin Time (DAILY) Timeframe: [id number] Facility: [facility] - Location: Laboratory Outpatient - [facility] Ordered By: Ramon Chowdary Prothrombin Time (DAILY) Timeframe: [id number] Facility: [facility] - Location: Laboratory Outpatient - [facility] Ordered By: Ramon Sernanathan Prothrombin Time (DAILY) Timeframe: [id number] Facility: [facility] - Location: Laboratory Outpatient - [facility] Ordered By: Ramon Chowdary Prothrombin Time (DAILY) Timeframe: [id number] Facility: [facility] - Location: Laboratory Outpatient - [facility] Ordered By: Ramon Sernanathan Prothrombin Time (DAILY) Timeframe: [id number] Facility: [facility] - Location: Laboratory Outpatient - [facility] Ordered By: Ramon Sernanathan Prothrombin Time (DAILY) Timeframe: [id number] Facility: [facility] - Location: Laboratory Outpatient - [facility] Ordered By: Ramon Chowdary Discharge Data Discharge Date/Time-TO BE ENTERED AT DEPARTURE: 03/30/23 14:30 DS: Summary Time Spent with Patient providing and/or coordinating discharge services: Greater than 30 minutes Status at Discharge Functional status at discharge: uses cane/walker Overall status at discharge: patient is progressing back to baseline Mental Status: mental status grossly normal Speech and Movement: speech and movement normal Mood: congruent mood Affect: normal affect Exam Const General: cooperative, comfortable and no acute distress Nutritional Appearance: average body habitus Orientation: alert and oriented x3 Resp Effort & Inspection: normal respiratory effort Auscultation: clear to auscultation bilaterally Cardio Rate: regular rate GI Inspection: incision (c/d/i) Palpation: soft, no hepatosplenomegaly and nontender Auscultation: normal bowel sounds Psych Mental Status: mental status grossly normal Speech and Movement: speech and movement normal Mood: congruent mood Affect: normal affect DS: Data Vitals/I&O Vitals and I&O: Vital Signs Temperature 36.1 C L 03/30/23 11:45 Temperature Source Tympanic 03/30/23 11:45 Pulse 94 H 03/30/23 11:45 Pulse Rhythm Regular 03/30/23 11:35 Respiratory Rate 18 03/30/23 04:35 Respiratory Effort Normal, Non-Labored 03/30/23 11:35 Respiratory Depth Normal 03/30/23 11:35 Respiratory Pattern Normal 03/30/23 11:35 Blood Pressure 112/76 03/30/23 11:45 Pulse Oximetry 96 03/30/23 11:45 Respiratory End-tidal CO2 34 03/27/23 14:39 Oxygen Delivery Method Room Air 03/30/23 11:45 Oxygen Flow Rate 0 03/30/23 11:45 Pain Level 0 03/30/23 11:45 Comment RN informed of VS 03/27/23 15:15 Intake & Output 03/29/23 03/30/23 03/30/23 23:59 11:59 23:59 Intake Total 540 / 920 350 / 350 Output Total 3200 / 4500 1400 / 1400 Balance -2660 / -3580 -1050 / -1050 Weight 87 kg Intake: IV 50 / 60 100 / 100 Oral 490 / 860 250 / 250 Output: Urine 3200 / 4500 1400 / 1400 Other: Urine Color Yellow Yellow Urine Appearance Clear Clear Urine Odor Normal Normal Voiding Methods Toilet Toilet Data Completed and Pending Labs on day of discharge: Labs from last 24 hours 03/30/23 03/30/23 03/30/23 11:00 06:18 06:18 WBC 7.54 RBC 4.72 Hgb 14.1 Hct 42.2 MCV 89 MCH 29.9 MCHC 33.4 RDW 13.4 Plt Count 259 MPV 11.1 H Immature Gran % 0.0 Neutrophils % 48.0 Lymphocytes % 34.0 Atypical Lymphs % 5 Monocytes % 9.0 Eosinophils % 4.0 Basophils % 0.0 Nucleated RBC % 0.0 Absolute Neutrophils 3.62 Absolute Lymphocytes 2.94 Absolute Monocytes 0.68 Absolute Eosinophils 0.30 Absolute Basophils 0.00 RBC Morphology Normal PT INR Sodium 140 Potassium 3.2 L 3.2 L Chloride 99 Carbon Dioxide 29.2 Anion Gap 11.8 H BUN 15 Creatinine 0.9 Est GFR (CKD-EPI 2020) 91.31 Glucose 146 H Calcium 9.0 Magnesium 2.7 H 1.2 L 03/30/23 06:18 WBC RBC Hgb Hct MCV MCH MCHC RDW Plt Count MPV Immature Gran % Neutrophils % Lymphocytes % Atypical Lymphs % Monocytes % Eosinophils % Basophils % Nucleated RBC % Absolute Neutrophils Absolute Lymphocytes Absolute Monocytes Absolute Eosinophils Absolute Basophils RBC Morphology PT 12.9 H INR 1.3 H Sodium Potassium Chloride Carbon Dioxide Anion Gap BUN Creatinine Est GFR (CKD-EPI 2020) Glucose Calcium Magnesium Preliminary micro results at discharge 03/28/23 06:45 Blood Culture - Preliminary Blood NO GROWTH 48 HOURS 03/28/23 06:51 Blood Culture - Preliminary Blood NO GROWTH 48 HOURS 03/26/23 06:35 Blood Culture - Preliminary Blood NO GROWTH 96 HOURS PFSH All Active Problems (Updated 03/31/23 @ 00:05 by LUCIA MILLER) [facility] current use of anticoagulant (Acute) Paroxysmal atrial fibrillation (Acute) Chronic pain (Chronic) Acute hypokalemia (Acute) Adhesive capsulitis of both shoulders (Acute) Sacroiliac joint dysfunction of both sides (Acute) S/P colonoscopy (Acute ~09/06/18) Colorectal polyps (Acute ~09/06/18) History of colonic polyps (Acute) Medical History Abnormal glucose Carpal tunnel syndrome Diabetes mellitus type 2, controlled, without complications Hypertension Joint pain of leg Major depressive disorder, single episode Other thrombophilia Social History Smoking/Tobacco Use Status: Former Tobacco Use Smoking risk assessment performed?: Yes Alcohol Intake: current Alcohol Intake frequency: a few times a week Alcohol type: hard liquor Drug use: Never Substance use type: does not use Housing: house Do you feel safe at home: Yes Do you feel safe in your relationship?: Yes Time Spent with Patient Time Spent with Patient: 45-69 minutes Time was spent: preparing to see the patient(eg.review tests), ordering medications,tests, procedures, referring, communicating with other health care program resident, indepentently interpreting results, counseling the patient and care coordination
[2023-03-30] MEDS: Potassium Chloride 10 MEQ CAPCR 40 MEQ PO (13:54)
== END 2023-03-30 14:30 | disposition home or self-care (01) | DRG 418 ==
LOC: ER 12:44 → MS 12:46
PROVIDERS: Internal Medicine; Surgery; Admitting Provider Surgery; Emergency Provider Student in an Organized Health Care Education/Training Program; PCP Internal Medicine; Visit Provider Surgery
PROC: 0FT44ZZ Resection of Gallbladder, Percutaneous Endoscopic Approach (ICD-10-PCS; CPT 47562; principal; 2023-03-27 11:45)
DX: K80.10 Calculus of gallbladder with chronic cholecystitis without obstruction (principal); D68.59 Other primary thrombophilia; R78.81 Bacteremia; E86.0 Dehydration; E83.42 Hypomagnesemia; E87.6 Hypokalemia; E11.9 Type 2 diabetes mellitus without complications; K59.00 Constipation, unspecified; G89.29 Other chronic pain; I95.9 Hypotension, unspecified; E87.70 Fluid overload, unspecified; I48.0 Paroxysmal atrial fibrillation; R19.7 Diarrhea, unspecified; Z79.01 Long term (current) use of anticoagulants; I10 Essential (primary) hypertension; E87.8 Other disorders of electrolyte and fluid balance, not elsewhere classified; Z86.73 Personal history of transient ischemic attack (TIA), and cerebral infarction without residual deficits; E11.40 Type 2 diabetes mellitus with diabetic neuropathy, unspecified; M48.00 Spinal stenosis, site unspecified; F32.9 Major depressive disorder, single episode, unspecified; B96.20 Unspecified Escherichia coli [E. coli] as the cause of diseases classified elsewhere
CPT/HCPCS: 47563; 36410; 36415; 80048; 80053; 80076; 82805; 83690; 84145; 85027; 87040; 87077; 87493; 93005; 96361; 96365; 96368; 96375; 99285; 71045; 74177; 74181; 74300; 81003; 81015; 83735; 84132; 84484; 85025; 85610; 85730; 86140; 87086; 87186; 88304; 93010; 99223; 99232; 99233; 99239; J0131; J1100; J1650; J1885; J1941; J2060; J2250; J2405; J2543; J2704; J3475; J3480; J3490; Q9967

== ENCOUNTER 2023-03-31 16:11 | Inpatient (IN) | payer OTHER, SELFPAY ==
[2023-03-31] VITALS (29 sets, daily range): BP systolic 83–141; BP diastolic 62–96; PULSE 71–93; RESP 15–27; TEMP 36.6–37; O2SAT 82–95
--- NOTE | 2023-03-31 16:45 | DI.CT_ITS ---
Exam(s) CT ABDOMEN PELVIS W EXAM: CT ABDOMEN PELVIS W CLINICAL HISTORY: s/ leonardo, severe RUQ pain and tenderness. TECHNIQUE: Imaging Protocol: Axial computed tomography images with coronal and sagittal reformatted images were created and reviewed CONTRAST MATERIAL: Intravenous: Omnipaque 350 Contrast volume:100 ml Oral: no COMPARISON: CT CT ABDOMEN PELVIS W from 03/24/2023 FINDINGS: ABDOMEN: Lung Bases: Normal where visualized. Liver: Normal density. No measurable mass. Small amount of fluid seen around the liver. Gallbladder and biliary tract: The patient is now status post cholecystectomy. There is a small amou nt of fluid within the gallbladder fossa within the expected amount postoperatively. Stable mild dil atation of the common bile duct. No visible stone. Pancreas: Normal density, no abnormal calcifications or inflammatory process. Spleen: Normal. Kidneys: Normal size, contour and axis. No radiodense stones or obstructive uropathy. No suspicious m asses seen. Adrenal glands: No masses seen. Abdominal Aorta: Abdominal portion non-dilated. Severe atherosclerotic changes. Soft tissues: Stranding in the soft tissues in the periumbilical region related to recent laparoscopi c cholecystectomy. PELVIS: Bladder: No gross wall thickening. No calculi.No focal mass. Bowel: Mildly dilated distal small bowel without wall thickening. No obstruction. No bowel wall th ickening. Appendix normal.Mild diverticulosis. No evidence of diverticulitis. Peritoneal cavity: Small amount of ascites seen around the liver. A minimal amount of right paracoli c gutter fluid. No focal collection or mesenteric inflammatory response. Bones: Severe degenerative changes in the spine. Reproductive organs: Enlarged prostate. Lymph nodes: Unremarkable. Impression: Small amount of fluid in the gallbladder fossa, around the liver and right paracolic gutter, which wi thin the expected amount for recent surgery. Mild dilatation of distal small bowel loops, nonspecific. No evidence focal some obstruction , wall thickening or pneumatosis. RADIATION DOSE DELIVERED: 908.94mGy.cm Total DLP DATA REPOSITORY: All CT scans at this facility are submitted to the National Radiology Data Registry (NRDR) Dose Index Registry (DIR) with the [employer] (ACR). RADIATION OPTIMIZATION: All CT scans at this facility use at least one of these dose optimization te chniques: automated exposure control; mA and/or kV adjustment per patient size (includes targeted exa ms where dose is matched to clinical indication); or iterative reconstruction.
--- NOTE | 2023-03-31 16:51 | W.ED.GENAD ---
Discharge Plan Disposition Patient Disposition: Admit to [facility] Condition: Critical Discharge Details Chief Complaint: Abd Prob Clinical Impression: Sepsis Primary Care Provider: LEXI PATEL ED Provider: Kierra Delaney Home Meds and New Rx's Prescriptions: No Action atorvastatin 40 mg tablet 40 mg PO DAILY Jardiance 25 mg tablet 25 mg PO DAILY irbesartan [Avapro] 150 mg tablet 150 mg PO DAILY metformin 1,000 mg tablet 1,000 mg PO BID venlafaxine 100 mg tablet 50 mg PO DAILY ketorolac 0.5 % drops 1 drp ophthalmic (eye) QID amlodipine 5 mg tablet 5 mg PO DAILY acetaminophen [Tylenol] 325 MG tablet 650 mg PO PRN PRN (Reason: Pain) aspirin [Aspir-81] 81 MG tablet,delayed release (DR/EC) 81 mg PO DAILY sildenafil [Viagra] 100 MG tablet 100 mg PO PRN simvastatin 40 MG tablet 40 mg PO QPM warfarin [Coumadin] 2 MG tablet 2 mg PO DAILY Patient Comments: 12/13/12: 4 mg daily except M and Thu when he takes 3 mg. mrf vitamin B complex 1 EACH capsule 1 ea PO DAILY Methocel E 4 M 1 GM granules 1 gm Miscellaneous DAILY cholecalciferol (vitamin D3) 50,000 UNIT capsule 50,000 unit PO DIRECTED Patient Comments: weekly on Thu. methadone 10 mg tablet See Rx Instructions .ROUTE .COMPLEX Patient Comments: TAKE 1 TABLET BY MOUTH EVERY MORNING AND TAKE 2 TABLET EVERY EVENING ON DAILY BASIS FOR CHRONIC PAIN Rx Instructions: TAKE 1 TABLET BY MOUTH EVERY MORNING AND TAKE 2 TABLET EVERY EVENING ON DAILY BASIS FOR CHRONIC PAIN hydrocodone-acetaminophen 7.5-325 mg tablet 1 tab PO Q6H PRN PRN Patient Comments: TAKE 1 TABLET BY MOUTH EVERY 6 HOURS NEEDED FOR CHRONIC PAIN enoxaparin [Lovenox] 80 mg/0.8 mL syringe 80 mg subcut Q12H 7 Days Qty: 11.2 0RF Rx Instructions: continue lovenox shots until your prothrombin INR is greater than 2.0 x two consecutive days amoxicillin-pot clavulanate 875-125 mg tablet 1 tab PO BID 7 Days Qty: 14 0RF potassium chloride 20 mEq tablet extended release 20 meq PO BID Qty: 60 0RF magnesium oxide 400 mg magnesium tablet 400 mg PO BID Qty: 60 0RF hydrochlorothiazide 25 MG tablet 12.5 mg PO DAILY Qty: 0 0RF glipizide 5 mg Tablet 5 mg PO HS Medical Decision Making 73yo M with hx CVA on warfarin, T2DM, presenting POD#4 from laprascopic cholecystectomy with severe RUQ pain. History from patient and medical record review. Admitted on 03/24 with cholestasis, significant electrolyte abnormalities, blood cultures grew e.coli. Initially there was concern for choledocolithiasis but he appeared to pass the stone and so had cholecystectomy here on 03/27. Did well until this morning, now with severe constant RUQ abdominal pain with associated N/V. Vital signs reassuring, no tachycardia or hypotension, RUQ tender on exam with guarding. Incisions appear to be healing well. IV toradol, morphine, zofran for symptoms. Labs reviewed as below, CBC with leukocytosis to 20.77 new from yesterday (7.5 on hospital discharge), CMP with LIAM Cr 1.6 upr from 0.9 on 03/30, slightly elevated LFTs. Lactic 3.5. Treating for sepsis with broad spectrum abx, IVFB. Blood and urine cultures and repeat lactic ordered. CT abd/pelvis independently reviewed, small amount of fluid in RUQ, agree with radiology read below. Surgery consulted; discussed with Dr. Dumont who advised CT PE which was ordered and reviewed, no pulmonary embolism or pneumonia on my view, agree with radiology read below. Repeat lactic pending. Results discussed wtih Dr. Dumont and Dr. Boyd, place for ICU admission to surgical service with medicine following, will add IV meropenum. Awaiting transfer to the unit. Medical Records Medical records reviewed: Yes I reviewed the patient's medical records. Medical records narrative: Reviewed admission note, discharge summary, op note, and labs from most recent admission. Imaging Data Radiologic Study: Imaging: CT Scan Radiologist's impression: Impression: Small amount of fluid in the gallbladder fossa, around the liver and right paracolic gutter, which within the expected amount for recent surgery. Mild dilatation of distal small bowel loops, nonspecific.? No evidence focal some obstruction , wall thickening or pneumatosis. Radiologic Study #2: Imaging: CT Scan Radiologist's impression: IMPRESSION: 1. ? There is heterogeneous attenuation of the pulmonary parenchyma, consistent with air trapping from underlying small airways disease. 2. ? There is no evidence of filling defects within the pulmonary arterial circulation to suggest pulmonary embolism. 3. ? The right ventricular to left ventricular ratio is abnormal measuring 1.25. Consider pulmonary hypertension. Lab Data Lab results reviewed: Yes I reviewed the patient's lab results. Labs: 03/31/23 19:17 Blood Blood Culture - Pending 03/31/23 19:17 Blood Blood Culture - Pending Laboratory Tests Range/Units 03/31/23 03/31/23 03/31/23 16:42 16:42 16:42 WBC (4.4-10.8) 10^3/uL 20.77 H RBC (4.36-5.78) 10^6/uL 5.03 Hgb (13.5-17.5) g/dL 14.8 Hct (40.0-50.0) % 45.6 MCV (80-95) fL 91 MCH (27.0-33.0) pg 29.4 MCHC (32.0-36.0) % 32.5 RDW (11.8-14.1) % 14.1 Plt Count (130-400) 10^3/uL 425 H D MPV (8.0-11.0) fL 10.7 Immature Gran % 0.8 Neutrophils % 83.7 Lymphocytes % 8.7 Monocytes % 6.4 Eosinophils % 0.0 Basophils % 0.4 Nucleated RBC % (0.0-0.3) % 0.0 Absolute Neutrophils (1.2-6.7) 10^3/uL 17.38 H Absolute Lymphocytes (1.2-3.4) 10^3/uL 1.81 Absolute Monocytes (0.1-0.8) 10^3/uL 1.33 H Absolute Eosinophils (0.0-0.7) 10^3/uL 0.00 Absolute Basophils (0.0-0.2) 10^3/uL 0.08 PT (9.3-11.0) sec INR (0.9-1.1) APTT (21.5-31.9) sec VBG Lactate (0.6-1.4) mmol/L 3.5 H* Sodium (136-145) mmol/L 133 L Potassium (3.5-5.1) mmol/L 4.3 D Chloride (98-107) mmol/L 95 L Carbon Dioxide (21.0-32.0) mmol/L 25.5 Anion Gap (3-11) mmol/L 12.5 H BUN (7-18) mg/dL 32 H Creatinine (0.70-1.30) mg/dL 1.6 H Est GFR (CKD-EPI 2020) (mL/min/1.73m2) 45.78 Glucose (74-106) mg/dL 336 H Calcium (8.5-10.1) mg/dL 9.9 Magnesium (1.8-2.4) mg/dL 2.0 Total Bilirubin (0.2-1.0) mg/dL 0.5 AST (15-37) U/L 46 H ALT (16-63) U/L 71 H Alkaline Phosphatase (46-116) U/L 130 H Total Protein (6.4-8.2) g/dL 8.7 H Albumin (3.4-5.0) g/dL 3.4 Lipase (16-77) U/L 59 Range/Units 03/31/23 16:42 WBC (4.4-10.8) 10^3/uL RBC (4.36-5.78) 10^6/uL Hgb (13.5-17.5) g/dL Hct (40.0-50.0) % MCV (80-95) fL MCH (27.0-33.0) pg MCHC (32.0-36.0) % RDW (11.8-14.1) % Plt Count (130-400) 10^3/uL MPV (8.0-11.0) fL Immature Gran % Neutrophils % Lymphocytes % Monocytes % Eosinophils % Basophils % Nucleated RBC % (0.0-0.3) % Absolute Neutrophils (1.2-6.7) 10^3/uL Absolute Lymphocytes (1.2-3.4) 10^3/uL Absolute Monocytes (0.1-0.8) 10^3/uL Absolute Eosinophils (0.0-0.7) 10^3/uL Absolute Basophils (0.0-0.2) 10^3/uL PT (9.3-11.0) sec 13.2 H INR (0.9-1.1) 1.3 H APTT (21.5-31.9) sec 27.8 VBG Lactate (0.6-1.4) mmol/L Sodium (136-145) mmol/L Potassium (3.5-5.1) mmol/L Chloride (98-107) mmol/L Carbon Dioxide (21.0-32.0) mmol/L Anion Gap (3-11) mmol/L BUN (7-18) mg/dL Creatinine (0.70-1.30) mg/dL Est GFR (CKD-EPI 2020) (mL/min/1.73m2) Glucose (74-106) mg/dL Calcium (8.5-10.1) mg/dL Magnesium (1.8-2.4) mg/dL Total Bilirubin (0.2-1.0) mg/dL AST (15-37) U/L ALT (16-63) U/L Alkaline Phosphatase (46-116) U/L Total Protein (6.4-8.2) g/dL Albumin (3.4-5.0) g/dL Lipase (16-77) U/L HPI General Mode of arrival: ambulatory. Date/Time Provider Initiated Documentation: 03/31/23 16:16. Limitations to Documentation: no limitations. Information obtained by: patient and old records reviewed. HPI Narrative: 73yo M with hx CVA on warfarin, T2DM, presenting POD#4 from laprascopic cholecystectomy with severe RUQ pain. He reports doing well after the surgery until this morning just after breakfast when he had severe constant RUQ abdominal pain radiating into his right shoulder, no alleviating or aggravating factors. Assoicated nausea and vomiting, non-bloody nonbilious emesis. No diarrhea, dysuria, or hematuria. He is otherwise in his usual state of health with no fevers, chills, rash, chest pain, shortness of breath, or other concerns. Related Data Home Medications Medication Instructions Recorded Confirmed acetaminophen 325 mg tablet 650 mg PO PRN PRN Pain 12/13/12 03/31/23 (Tylenol) aspirin 81 mg tablet,delayed 81 mg PO DAILY 12/13/12 03/31/23 release (Aspir-) carboxymethylcellulose (Methocel E 1 gm miscellaneous DAILY 12/13/12 03/31/23 4 M granules) cholecalciferol (vitamin D3) 1,250 50,000 unit PO DIRECTED 12/13/12 03/31/23 mcg (50,000 unit) capsule sildenafil 100 mg tablet (Viagra) 100 mg PO PRN 12/13/12 01/08/22 simvastatin 40 mg tablet 40 mg PO QPM 12/13/12 03/31/23 vitamin B complex 1 ea PO DAILY 12/13/12 03/31/23 warfarin 2 mg tablet (Coumadin) 2 mg PO DAILY 12/13/12 03/31/23 glipizide 5 mg tablet 5 mg PO HS 09/06/18 03/31/23 atorvastatin 40 mg tablet 40 mg PO DAILY 01/07/22 03/31/23 empagliflozin 25 mg tablet 25 mg PO DAILY 01/07/22 03/31/23 (Jardiance) irbesartan 150 mg tablet (Avapro) 150 mg PO DAILY 01/07/22 03/31/23 ketorolac 0.5 % eye drops 1 drp ophthalmic (eye) QID 01/07/22 03/31/23 metformin 1,000 mg tablet 1,000 mg PO BID 01/07/22 03/31/23 venlafaxine 100 mg tablet 50 mg PO DAILY 01/07/22 03/31/23 amlodipine 5 mg tablet 5 mg PO DAILY 01/08/22 03/31/23 hydrocodone 7.5 mg-acetaminophen 1 tab PO Q6H PRN PRN 03/24/23 03/31/23 325 mg tablet methadone 10 mg tablet See Rx Instructions .Route .COMPLEX 03/24/23 03/24/23 amoxicillin 875 mg-potassium 1 tab PO BID 7 days #14 tabs 03/30/23 03/31/23 clavulanate 125 mg tablet enoxaparin 80 mg/0.8 mL 80 mg (0.8 mL) subcut Q12H 7 days 03/30/23 03/31/23 subcutaneous syringe (Lovenox) #11.2 mL hydrochlorothiazide 25 mg tablet 12.5 mg PO DAILY #0 tabs 03/30/23 03/31/23 magnesium oxide 400 mg PO BID #60 tabs 03/30/23 03/31/23 potassium chloride 20 mEq 20 meq PO BID #60 tabs 03/30/23 03/31/23 tablet,extended release Previous Rx's Medication Instructions Recorded amoxicillin 875 mg-potassium 1 tab PO BID 7 days #14 tabs 03/30/23 clavulanate 125 mg tablet enoxaparin 80 mg/0.8 mL 80 mg (0.8 mL) subcut Q12H 7 days 03/30/23 subcutaneous syringe (Lovenox) #11.2 mL hydrochlorothiazide 25 mg tablet 12.5 mg PO DAILY #0 tabs 03/30/23 magnesium oxide 400 mg PO BID #60 tabs 03/30/23 potassium chloride 20 mEq 20 meq PO BID #60 tabs 03/30/23 tablet,extended release Allergies Allergy/AdvReac Type Severity Reaction Status Date / Time No Known Allergies Allergy Unverified 03/24/23 09:39 General Stated Complaint: Abd Prob LEÓN: 3 Review of Systems Narrative: see HPI PFSH All Active Problems (Updated 03/31/23 @ 21:54 by Kierra Delaney MD) Sepsis (Acute) S/P laparoscopic cholecystectomy (Acute) DJD (degenerative joint disease), lumbar (Acute) History of embolic stroke (Acute) Acquired cerebral atrophy (Acute) Osteopenia determined by x-ray (Acute) Hyperlipemia (Acute) Hypertension (Chronic) Hx of bacteremia (Acute) Patient was treated for E. coli bacteremia at [facility] 03/24-03/28. Initially on Zosyn. And then switched to ceftriaxone on SIRS (systemic inflammatory response syndrome) (Acute) Cholangitis (Acute) half-way current use of anticoagulant (Acute) Paroxysmal atrial fibrillation (Acute) Chronic pain (Chronic) Acute hypokalemia (Acute) Adhesive capsulitis of both shoulders (Acute) Sacroiliac joint dysfunction of both sides (Acute) S/P colonoscopy (Acute ~09/06/18) Colorectal polyps (Acute ~09/06/18) History of colonic polyps (Acute) Medical History Abnormal glucose Carpal tunnel syndrome Diabetes mellitus type 2, controlled, without complications Hypertension Joint pain of leg Major depressive disorder, single episode Other thrombophilia Social History Smoking/Tobacco Use Status: Former Tobacco Use Smoking risk assessment performed?: Yes Alcohol Intake: current Alcohol Intake frequency: a few times a week Alcohol type: hard liquor Drug use: Never Substance use type: does not use Housing: house Do you feel safe at home: Yes Do you feel safe in your relationship?: Yes Exam Narrative Exam Narrative: General: Alert, appears to be pain Head: Normocephalic, atraumatic Neck: Trachea midline, Neck supple. ENT: MMM. No oropharygeal lesions or exudate. Cardiac: RRR, no murmurs appreciated Resp: No respiratory distress. CTAB. Abd: Soft, non-distended. RUQ TTP with guarding. Incisions C/D/I with no discharge or erythema. : No suprapubic tenderness. Extremities: No deformities. No peripheral edema. Neurologic: GCS 15. Moves all extremities freely against gravity Course Vital Signs Vital signs: Vital Signs Pulse 92 H 03/31/23 16:17 Respiratory Rate 24 03/31/23 16:17 Blood Pressure 103/71 03/31/23 16:17 Pulse Oximetry 95 03/31/23 16:17 Pulse 92 H 03/31/23 16:17 Respiratory Rate 24 03/31/23 16:17 Respiratory Effort Short of Breath 03/31/23 16:22 Blood Pressure 103/71 03/31/23 16:17 Blood Pressure Position Sitting 03/31/23 16:17 Pulse Oximetry 95 03/31/23 16:17 Oxygen Delivery Method Room Air 03/31/23 16:17 Oxygen Flow Rate 0 03/31/23 16:17 Pain Level 10 03/31/23 16:17 Critical Care Time Critical Care Time Total Critical Care Time: 34 Attestation: Due to a high probability of clinically significant, life threatening deterioration, the patient required my highest level of preparedness to intervene emergently and I personally spent this critical care time directly and personally managing the patient. This critical care time included obtaining a history; examining the patient; pulse oximetry; ordering and review of studies; arranging urgent treatment with development of a management plan; evaluation of patient's response to treatment; frequent reassessment; and, discussions with other providers. This critical care time was performed to assess and manage the high probability of imminent, life-threatening deterioration that could result in multi-organ failure. It was exclusive of separately billable procedures.
[2023-03-31] MEDS: Ondansetron 4 MG/2 ML VIAL IVP (17:03)
[2023-03-31] MEDS: Ketorolac 15 MG/ML VIAL IVP (17:03)
[2023-03-31] MEDS: MORPHine 4 MG/ML SYR IVP ×2 (17:03→22:17)
[2023-03-31 17:22] LABS: Abs Immature Grans 0.16 10^3/uL (0.0-0.06); Absolute Monocyte Count 1.33 10^3/uL (0.1-0.8); Basophils % 0.4; HCT 45.6 % (40.0-50.0); HGB 14.8 g/dL (13.5-17.5); Immature Grans % 0.8; Lymphocytes % 8.7; MCH 29.4 pg (27.0-33.0); MCHC 32.5 % (32.0-36.0); MCV 91 fL (80-95); MPV 10.7 fL (8.0-11.0); Monocytes % 6.4; Neutrophils % 83.7; Platelet Count 425 10^3/uL (130-400); RBC 5.03 10^6/uL (4.36-5.78); RDW 14.1 % (11.8-14.1); RDW-SD 46.4 fL; WBC 20.77 10^3/uL (4.4-10.8)
[2023-03-31 17:24] LABS: Absolute Basophil Count 0.08 10^3/uL (0.0-0.2); Absolute Lymphocyte Count 1.81 10^3/uL (1.2-3.4); Absolute Neutrophil Count 17.38 10^3/uL (1.2-6.7)
[2023-03-31 17:34] LABS: ALT 71 U/L (16-63); AST 46 U/L (15-37); Albumin 3.4 g/dL (3.4-5.0); Alkaline Phosphatase 130 U/L (46-116); Anion Gap 12.5 mmol/L (3-11); BUN 32 mg/dL (7-18); Bilirubin, Total 0.5 mg/dL (0.2-1.0); CO2 25.5 mmol/L (21.0-32.0); CREATININE 1.6 mg/dL (0.70-1.30); Calcium 9.9 mg/dL (8.5-10.1); Chloride 95 mmol/L (98-107); Estimated GFR 45.78 (mL/min/1.73m2); Glucose 336 mg/dL (74-106); Lipase 59 U/L (16-77); Potassium 4.3 mmol/L (3.5-5.1); Sodium 133 mmol/L (136-145); Total Protein 8.7 g/dL (6.4-8.2)
[2023-03-31 17:36] LABS: Lactate 3.5 mmol/L (0.6-1.4)
[2023-03-31 17:39] LABS: INR 1.3 (0.9-1.1); PTT Activated 27.8 sec (21.5-31.9); Prothrombin Time 13.2 sec (9.3-11.0)
[2023-03-31] MEDS: Omnipaque 350 MG/ML 100 ML BTL IJ ×2 (18:42→20:28)
[2023-03-31] MEDS: Normal Saline - Diluent 50 ML VIAL IJ ×3 (18:43→20:31)
[2023-03-31] MEDS: Normal Saline Flush 10 ML SYR IVP ×4 (18:43→23:18)
[2023-03-31] MEDS: PIPERACILLIN/TAZO 4.5 GM in Normal Saline 100 ML IVPB (19:50)
--- NOTE | 2023-03-31 20:00 | DI.CT_ITS ---
Exam(s) CT CHEST PE CTA EXAM: CT CHEST PE CTA CLINICAL HISTORY: chest pain. TECHNIQUE: Imaging Protocol: Axial CT angiography was performed with multi-slice acquisition and mu lti-planar reconstructions as well as axial, coronal and sagittal MIP reconstructions. CONTRAST MATERIAL: Intravenous: Omnipaque 350 Contrast volume:80 ml COMPARISON: CT ABD PELVIS WITH CONTRAST from 06/22/2011 CR,XR XR PORTABLE CHEST AP from 03/24/[address] ABDOMEN PELVIS W from 03/24/[address] ABDOMEN PELVIS W from 03/31/2023 FINDINGS: Pulmonary Arteries: No evidence of filling defect to suggest pulmonary emboli. Tracheobronchial tree: Patent where visualized. Mediastinum and Rossy: No dominant adenopathy or fluid collection. Pulmonary parenchyma: Dependent and expiratory changes. No consolidation or dominant measurable mass . 4 millimeter nodule medial superior segment left lower lobe. Pleura: No effusion or pneumothorax. Heart: The heart is not dilated. Moderate coronary artery calcifications are seen. Aorta: Thoracic aorta non-dilated. No aneurysm. No dissection. Mild atherosclerotic changes. Upper abdomen: Unremarkable. Bones: Degenerative changes. No compression fractures. Tubes, Catheters, and Lines: None IMPRESSION: No evidence of pulmonary embolism or other acute abnormality in the chest. 4 millimeter left lower lobe nodule. For low risk patients, no further follow-up recommended. For h igh risk patients consider optional low-dose chest CT in 1 year. RADIATION DOSE DELIVERED: 471.11mGy.cm Total DLP DATA REPOSITORY: All CT scans at this facility are submitted to the National Radiology Data Registry (NRDR) Dose Index Registry (DIR) with the [employer] ([employer]). RADIATION OPTIMIZATION: All CT scans at this facility use at least one of these dose optimization te chniques: automated exposure control; mA and/or kV adjustment per patient size (includes targeted exa ms where dose is matched to clinical indication); or iterative reconstruction.
--- NOTE | 2023-03-31 20:10 | W.PM.PROGNOT ---
Date of Service Date of service: 03/31/23 Time of Service: 20:10 Assessment and Plan Assessment and plan (1) Cholangitis: Status: Acute Assessment and plan: lab and CT are most consistent w/ recurrent cholangitis or recrudescence of E coli bactremia. There are no signs of bile leak or abscess. No signs of wound infection. No signs of bowel injury. There are some dilated small bowel loops distally of unclear significance. No c diff. continue to treat w/ abx and supportive care ua and blood cultures pd CT chest negative ProCal .2 trop pd. 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: Status: Acute (3) Paroxysmal atrial fibrillation: Status: Acute (4) Diabetes mellitus type 2, controlled, without complications: (5) SIRS (systemic inflammatory response syndrome): Status: Acute (6) Hx of bacteremia: Status: Acute (7) Hypertension: Status: Chronic (8) Hyperlipemia: Status: Acute (9) Osteopenia determined by x-ray: Status: Acute (10) Acquired cerebral atrophy: Status: Acute (11) History of embolic stroke: Status: Acute (12) DJD (degenerative joint disease), lumbar: Status: Acute (13) S/P laparoscopic cholecystectomy: Status: Acute Subjective Subjective Interval history since last seen: Surgical consult in progress. Pt was d/c from [facility] 03/30 from a lap leonardo and CBD stone that passed. He did have e coli + blood cultures that were sensitive to PCN. He was treated intially w/ zosyn and than scaled back to ceftriaxone adn d/c'ed on Augmentin. Today he had breakfast (eggs) and immediately developed severe unrelenting RUQ pain. There was some assoc N/V, but this may just be from the pain. No fevers. No diarrhea. No productive cough or SOB. no chest pain CT: ABDOMEN: Lung Bases: Normal where visualized. Liver: Normal density. No measurable mass. ? Small amount of fluid seen around the liver. Gallbladder and biliary tract: The patient is now status post cholecystectomy.? There is a small amount of fluid within the gallbladder fossa within the expected amount postoperatively.? Stable mild dilatation of the common bile duct.? No visible stone. Pancreas: Normal density, no abnormal calcifications or inflammatory process. Spleen: Normal. Kidneys: Normal size, contour and axis. No radiodense stones or obstructive uropathy. No suspicious masses seen. Adrenal glands: No masses seen. Abdominal Aorta: Abdominal portion non-dilated. ? Severe atherosclerotic changes. Soft tissues: Stranding in the soft tissues in the periumbilical region related to recent laparoscopic cholecystectomy. PELVIS:? Bladder:? No gross wall thickening. No calculi.No focal mass. Bowel: Mildly dilated distal small bowel without wall thickening.? No obstruction. ? No bowel wall thickening. Appendix normal.Mild diverticulosis.? No evidence of diverticulitis. Peritoneal cavity: Small amount of ascites seen around the liver.? A minimal amount of right paracolic gutter fluid.? No focal collection or mesenteric inflammatory response. Bones: Severe degenerative changes in the spine. Reproductive organs: Enlarged prostate.? Lymph nodes: Unremarkable.? Impression: Small amount of fluid in the gallbladder fossa, around the liver and right paracolic gutter, which within the expected amount for recent surgery. Mild dilatation of distal small bowel loops, nonspecific.? No evidence focal some obstruction , wall thickening or pneumatosis. Objective Last Vital Signs Pulse 86 03/31/23 17:16 Resp 21 03/31/23 16:50 BP 105/68 03/31/23 17:16 Pulse Ox 95 03/31/23 16:17 Laboratory Results - last 24 hr 03/31/23 03/31/23 03/31/23 16:42 16:42 16:42 WBC 20.77 H RBC 5.03 Hgb 14.8 Hct 45.6 MCV 91 MCH 29.4 MCHC 32.5 RDW 14.1 Plt Count 425 H D MPV 10.7 Immature Gran % 0.8 Neutrophils % 83.7 Lymphocytes % 8.7 Monocytes % 6.4 Eosinophils % 0.0 Basophils % 0.4 Nucleated RBC % 0.0 Absolute Neutrophils 17.38 H Absolute Lymphocytes 1.81 Absolute Monocytes 1.33 H Absolute Eosinophils 0.00 Absolute Basophils 0.08 PT INR APTT VBG Lactate 3.5 H* Sodium 133 L Potassium 4.3 D Chloride 95 L Carbon Dioxide 25.5 Anion Gap 12.5 H BUN 32 H Creatinine 1.6 H Est GFR (CKD-EPI 2020) 45.78 Glucose 336 H Calcium 9.9 Magnesium 2.0 Total Bilirubin 0.5 AST 46 H ALT 71 H Alkaline Phosphatase 130 H Total Protein 8.7 H Albumin 3.4 Lipase 59 03/31/23 16:42 WBC RBC Hgb Hct MCV MCH MCHC RDW Plt Count MPV Immature Gran % Neutrophils % Lymphocytes % Monocytes % Eosinophils % Basophils % Nucleated RBC % Absolute Neutrophils Absolute Lymphocytes Absolute Monocytes Absolute Eosinophils Absolute Basophils PT 13.2 H INR 1.3 H APTT 27.8 VBG Lactate Sodium Potassium Chloride Carbon Dioxide Anion Gap BUN Creatinine Est GFR (CKD-EPI 2020) Glucose Calcium Magnesium Total Bilirubin AST ALT Alkaline Phosphatase Total Protein Albumin Lipase Reviewed Pertinent PMH: Yes CBC White Blood Count 20.77 10^3/uL (4.4-10.8) H 03/31/23 Red Blood Count 5.03 10^6/uL (4.36-5.78) 03/31/23 Hemoglobin 14.8 g/dL (13.5-17.5) 03/31/23 Hematocrit 45.6 % (40.0-50.0) 03/31/23 Mean Corpuscular Volume 91 fL (80-95) 03/31/23 Mean Corpuscular Hemoglobin 29.4 pg (27.0-33.0) 03/31/23 Mean Corpuscular Hemoglobin Concent 32.5 % (32.0-36.0) 03/31/23 Red Cell Distribution Width 14.1 % (11.8-14.1) 03/31/23 Platelet Count 425 10^3/uL (130-400) H 03/31/23 Mean Platelet Volume 10.7 fL (8.0-11.0) 03/31/23 Neutrophils % 83.7 03/31/23 Lymphocytes % 8.7 03/31/23 Monocytes % 6.4 03/31/23 Eosinophils % 0.0 03/31/23 Basophils % 0.4 03/31/23 Immature Granulocytes % 0.8 03/31/23 Comprehensive Metabolic Panel Sodium 133 mmol/L (136-145) L 03/31/23 16:42 Potassium 4.3 mmol/L (3.5-5.1) 03/31/23 16:42 Chloride 95 mmol/L (98-107) L 03/31/23 16:42 Carbon Dioxide 25.5 mmol/L (21.0-32.0) 03/31/23 16:42 BUN 32 mg/dL (7-18) H 03/31/23 16:42 Creatinine 1.6 mg/dL (0.70-1.30) H 03/31/23 16:42 Glucose 336 mg/dL (74-106) H 03/31/23 16:42 Calcium 9.9 mg/dL (8.5-10.1) 03/31/23 16:42 Conjugated Bilirubin 0.3 mg/dL (0.0-0.2) H 03/27/23 06:20 Total Bilirubin 0.5 mg/dL (0.2-1.0) 03/31/23 16:42 ALT 71 U/L (16-63) H 03/31/23 16:42 AST 46 U/L (15-37) H 03/31/23 16:42 Alkaline Phosphatase 130 U/L (46-116) H 03/31/23 16:42 Total Protein 8.7 g/dL (6.4-8.2) H 03/31/23 16:42 Albumin 3.4 g/dL (3.4-5.0) 03/31/23 16:42 Anemia profile Hgb 14.8 g/dL (13.5-17.5) 03/31/23 Hct 45.6 % (40.0-50.0) 03/31/23 MCV 91 fL (80-95) 03/31/23 RDW 14.1 % (11.8-14.1) 03/31/23 Diabetes results Glucose 336 mg/dL (74-106) H 03/31/23 BUN 32 mg/dL (7-18) H 03/31/23 Creatinine 1.6 mg/dL (0.70-1.30) H 03/31/23 Est GFR (CKD-EPI 2020) 45.78 (mL/min/1.73m2) 03/31/23 Sodium 133 mmol/L (136-145) L 03/31/23 Potassium 4.3 mmol/L (3.5-5.1) 03/31/23 Chloride 95 mmol/L (98-107) L 03/31/23 Carbon Dioxide 25.5 mmol/L (21.0-32.0) 03/31/23 Calcium 9.9 mg/dL (8.5-10.1) 03/31/23 AST 46 U/L (15-37) H 03/31/23 ALT 71 U/L (16-63) H 03/31/23 Total Protein 8.7 g/dL (6.4-8.2) H 03/31/23 Albumin 3.4 g/dL (3.4-5.0) 03/31/23 Stool tests (SJP) No Data to Display Time Spent with Patient Time Spent with Patient: >50 minutes Time was spent: ordering medications,tests, procedures, referring, communicating with other health healthcare administration intern, indepentently interpreting results and care coordination
[2023-03-31 20:21] LABS: C-Reactive Protein 4.42 mg/dL (0.0-0.3)
[2023-03-31 20:22] LABS: Troponin I < 50 ng/L (<or=60)
[2023-03-31 20:44] LABS: D-Dimer 1348 ng/mlFEU (<500)
[2023-03-31] MEDS: LINEZOLID 600 MG/300 ML BAG 300 MG IVPB (20:44)
[2023-03-31] MEDS: Normal Saline 1,000 ML 1000 ML IV ×2 (20:45→22:32)
[2023-03-31 21:05] LABS: Procalcitonin 0.4 ng/mL
--- NOTE | 2023-03-31 21:24 | DI.VRAD_ITS ---
PROCEDURE INFORMATION: Exam: CTA Chest With Contrast Exam date and time: 03/31/2023 8:28 PM Age: 73 years old Clinical indication: Other: Chest pain TECHNIQUE: Imaging protocol: Computed tomographic angiography of the chest with contrast. Exam focused on the arteries. 3D rendering (Not supervised by radiologist): MIP and/or 3D reconstructed images were created by the technologist. Radiation optimization: All CT scans at this facility use at least one of these dose optimization techniques: automated exposure control; mA and/or kV adjustment per patient size (includes targeted exams where dose is matched to clinical indication); or iterative reconstruction. Contrast material: OMNIPAQUE 350; Contrast volume: 80 ml; Contrast route: INTRAVENOUS (IV); COMPARISON: CR XR PORTABLE CHEST AP 03/24/2023 9:02 PM FINDINGS: Pulmonary arteries: The pulmonary arteries are not enlarged. There is no evidence of filling defects within the pulmonary arterial circulation to suggest pulmonary embolism. Aorta: The aorta demonstrates mild atherosclerotic calcification. No aortic aneurysm. No aortic dissection. Lungs: There is heterogeneous attenuation of the pulmonary parenchyma, consistent with air trapping from underlying small airways disease. Mild atelectatic changes and scarring present at the lung bases bilaterally. Pleural spaces: There is no evidence of pneumothorax. There are no pleural effusions present. Heart: No evidence of reflux of contrast into the inferior vena cava or hepatic veins to suggest right heart strain or pulmonary hypertension. The right ventricular to left ventricular ratio is abnormal measuring 1.25. Consider pulmonary hypertension. Coronary arteries: There is moderate atherosclerotic calcification of the coronary arteries. Lymph nodes: There is no evidence of lymphadenopathy. Diaphragm: A small hiatal hernia is present. Gallbladder and bile ducts: There has been a cholecystectomy. Bones/joints: Moderate degenerative changes thoracic spine. Soft tissues: The soft tissues of the extrathoracic region are unremarkable. The soft tissues of the extrathoracic region are unremarkable. The soft tissues of the extrathoracic region are unremarkable. The upper abdominal viscera otherwise unremarkable. IMPRESSION: 1. There is heterogeneous attenuation of the pulmonary parenchyma, consistent with air trapping from underlying small airways disease. 2. There is no evidence of filling defects within the pulmonary arterial circulation to suggest pulmonary embolism. 3. The right ventricular to left ventricular ratio is abnormal measuring 1.25. Consider pulmonary hypertension. Dictated and Authenticated by: Lucio Jaime MD. Ordering:RIO Lozada MD
--- NOTE | 2023-03-31 21:49 | W.MEDCONSULT ---
Date of service: 03/31/23 Time of Service: 21:49 Assessment and Plan Assessment and plan (1) Sepsis: Status: Acute Assessment and plan: I have recommended Meropenem and vancomycin but patient has already been started on Zyvox and Zosyn. I will defer to primary service regarding selection of antibiotics. At present his mentation and hemodynamics are stable. he does have LIAM and is receiving iv fluids. Keep close monitor of his urine ouput, check serial lactate levels. If urine output is declining then place odom for accurate output. Consider early exploratory laparatomy to look for source of infection/inflammation. Likely biliary leak. I do not think this is an ascending cholangitis. His bilirubin is normal and he is not jaundiced. Critical care time spent interviewing and examining the patient, reviewing studies, discussing case with patient's nurse and consulting physicians was 45 minutes (2) S/P laparoscopic cholecystectomy: Status: Acute Assessment and plan: POD #4. see above (3) Paroxysmal atrial fibrillation: Status: Acute Assessment and plan: currently in sinus rhythm. Hold warfarin. INR was 1.3. Patient was not on any rate controlling meds i.e. CCB or BB (4) Diabetes mellitus type 2, controlled, without complications: Assessment and plan: hold oral DM agents, use sliding scale, monitor glucose q4 to q6h. If glucose becomes markedly elevated then I would put him on insulin drip perioperatively. Once his infection is under control then his glucose should normalize. History of Present Illness History of Present Illness Chief Complaint: abdominal pain, chills Narrative: 73 yr old male w/ PMH of prior CVA, PAF, HTN, DM2, HLD presented to [facility] 03/24/23 w/ complaints of chills, nausea, constipation and dry heaves was found to have CBD stone per CT and confirmed on MRCP was cultured up and found to have E. coli bacteremia (03/24/23, 03/26/23, finally cleared by 03/28/23) and was treated w/ Zosyn and later down graded to Rocephin and discharged home on Augmentin on 03/30/23 after he underwent laparoscopy cholecystectomy on 03/27/23 after he clinically cleared his CBD stone while awaiting for transfer to [facility] for down and back ERCP. Clinically his bilirubin had normalized by 03/25/23 and his WBC had normalized to 7790 by 03/26. Prior to surgery his warfarin was reversed w/ vitamin K. Postoperatively he was put on lovenox 1 mg/kg q12h and his warfarin was restarted. he had some electrolyte isssue w/ low Mg and low K which were supplemented. By 03/30 he was eating well and having BM and no abdominal pains and his antibiotics had been de-escalated to Augmentin. he was discharged on 03/30. However this morning he was complaining of diaphoresis and right sided abdominal pains, nausea. I took call from his who was trying all morning to pursuade him to return to the ED. I advised her to bring him back to the ED as I was concerned that he had an intraabdominal infection. Evaluation by the ED provider included labs and CT scan. CT scan report indicated small amount of fluid in the GB fossa and around the liver and right paracolic gutter and mild small bowl loo dilatation w/out pneumotosis or wall thickening or obstruction. Labs are remarkable for WBC 20,770 w/ left shift, lactate 3.5, LIAM w/ BUN 32, creatinine 1.6, glucose 336, AST 46, ALT 71, alkaline phosphatase 130, CRP 4.42, procalcitonin 0.4. CTA chest was done which showed no infiltrates and no PE. Blood cultures were obtained and patient was started on Zosyn and Zyvox. Patient is to be admitted to ICU to surgical service w/ medicine consult as patient is post operative for cholecystectomy and now has intraabdominal infection, possibly a biliary leak. Review of Systems Constitutional Constitutional: Reports chills and Reports excessive sweating Eyes Eyes: Reports system reviewed and no additional complaints, except as documented ENT Ears, Nose, Mouth, and Throat: Reports system reviewed and no additional complaints, except as documented Cardiovascular Cardiovascular: Reports chest pain (right shoulder blade area) Respiratory Respiratory: Reports system reviewed and no additional complaints, except as documented Gastrointestinal Gastrointestinal: Reports abdominal pain (RUQ pain w/ radiation into right shoulder blade), Denies diarrhea, Reports nausea and Denies vomiting Genitourinary Genitourinary: Reports system reviewed and no additional complaints, except as documented Musculoskeletal Musculoskeletal: Reports system reviewed and no additional complaints, except as documented Integumentary/Breasts Skin/Breast: Reports system reviewed and no additional complaints, except as documented Neurologic Neurologic: Reports system reviewed and no additional complaints, except as documented Endocrine Endocrine: Reports excessive sweating Hematologic/Lymphatic Hematologic/Lymphatic: Reports system reviewed and no additional complaints, except as documented Allergic/Immunologic Allergic/Immunologic: Reports system reviewed and no additional complaints, except as documented PFSH All Active Problems Sepsis (Acute) S/P laparoscopic cholecystectomy (Acute) DJD (degenerative joint disease), lumbar (Acute) History of embolic stroke (Acute) Acquired cerebral atrophy (Acute) Osteopenia determined by x-ray (Acute) Hyperlipemia (Acute) Hypertension (Chronic) Hx of bacteremia (Acute) Patient was treated for E. coli bacteremia at [facility] 03/24-03/28. Initially on Zosyn. And then switched to ceftriaxone on SIRS (systemic inflammatory response syndrome) (Acute) Cholangitis (Acute) halfway current use of anticoagulant (Acute) Paroxysmal atrial fibrillation (Acute) Chronic pain (Chronic) Acute hypokalemia (Acute) Adhesive capsulitis of both shoulders (Acute) Sacroiliac joint dysfunction of both sides (Acute) S/P colonoscopy (Acute ~09/06/18) Colorectal polyps (Acute ~09/06/18) History of colonic polyps (Acute) Medical History Abnormal glucose Carpal tunnel syndrome Diabetes mellitus type 2, controlled, without complications Joint pain of leg Major depressive disorder, single episode Other thrombophilia Social History Smoking/Tobacco Use Status: Former Tobacco Use Smoking risk assessment performed?: Yes Alcohol Intake: current Alcohol Intake frequency: a few times a week Alcohol type: hard liquor Drug use: Never Substance use type: does not use Housing: house Do you feel safe at home: Yes Do you feel safe in your relationship?: Yes Exam Const General: cooperative, in distress mild (secondary to pain) and ill appearing acutely Nutritional Appearance: overweight Orientation: alert, awake and oriented x3 HENMT Head: normal to inspection and no palpable skull fracture Ears: external ears normal General nose exam: external nose normal Face and sinus: normal facial exam Mouth: oral mucosae normal Eyes General: appearance normal, both eyes and all related structures Visual [place]: normal visual [place] by confrontation Alignment and Position: alignment normal Periorbital: periorbital findings normal Eyelids: eyelids normal Conjunctivae: conjunctivae normal Sclera: sclerae normal Cornea: corneas normal Pupils: PERRL Neck Neck: normal visual inspection, full ROM, no lymphadenopathy, trachea midline, supple and no JVD Thyroid: thyroid normal Carotids: normal carotid upstroke Chest Chest: normal inspection of the chest and normal palpation of entire chest wall Resp Effort & Inspection: normal respiratory effort and able to speak in complete sentences Auscultation: clear to auscultation bilaterally Cardio Jugular venous pressure: no JVD Palpation: normal PMI Rate: regular rate Rhythm: regular rhythm Heart Sounds: S1 normal and S2 normal GI Inspection: distended, obesity and scar (laparotomy wounds are intact in RUQ, no drainage/discharge) Palpation: firm in the RUQ, guarding in the RUQ and tender in the RUQ and with rebound tenderness Auscultation: normal bowel sounds Back/Spine/Pelvis Cervical Spine: normal cervical lordosis Thoracic/Lumbar Spine: thoracic and lumbar spine normal to inspection Skin General skin exam: no rashes or lesions noted Neuro General: patient alert, patient awake and patient oriented x3 Cranial Nerves: CN's II-XI intact bilaterally Cognition: normal cognition Speech: speech normal Motor: muscle tone normal throughout Sensory Exam: no sensory deficits noted Extrem General: normal to inspection, full ROM, capillary refill normal, no joint enlargement, no clubbing, cyanosis or edema, no pedal edema and no calf tenderness Psych Appearance: grossly normal Mental Status: mental status grossly normal Speech and Movement: speech and movement normal Mood: congruent mood Affect: normal affect Attitude: cooperative Thought Process: normal Thought Content: normal Insight: insight good Judgment: judgment good Results Last Vital Signs Pulse 86 03/31/23 17:16 Resp 21 03/31/23 16:50 BP 105/68 03/31/23 17:16 Pulse Ox 95 03/31/23 16:17 Labs 03/31/23 16:42 03/31/23 16:42 Labs: Laboratory Results - last 24 hr 03/31/23 03/31/23 03/31/23 16:42 16:42 16:42 WBC 20.77 H RBC 5.03 Hgb 14.8 Hct 45.6 MCV 91 MCH 29.4 MCHC 32.5 RDW 14.1 Plt Count 425 H D MPV 10.7 Immature Gran % 0.8 Neutrophils % 83.7 Lymphocytes % 8.7 Monocytes % 6.4 Eosinophils % 0.0 Basophils % 0.4 Nucleated RBC % 0.0 Absolute Neutrophils 17.38 H Absolute Lymphocytes 1.81 Absolute Monocytes 1.33 H Absolute Eosinophils 0.00 Absolute Basophils 0.08 PT INR APTT D-Dimer VBG Lactate 3.5 H* Sodium 133 L Potassium 4.3 D Chloride 95 L Carbon Dioxide 25.5 Anion Gap 12.5 H BUN 32 H Creatinine 1.6 H Est GFR (CKD-EPI 2020) 45.78 Glucose 336 H Calcium 9.9 Magnesium 2.0 Total Bilirubin 0.5 AST 46 H ALT 71 H Alkaline Phosphatase 130 H Troponin I C-Reactive Protein Total Protein 8.7 H Albumin 3.4 Lipase 59 Procalcitonin 03/31/23 03/31/23 03/31/23 16:42 16:42 16:42 WBC RBC Hgb Hct MCV MCH MCHC RDW Plt Count MPV Immature Gran % Neutrophils % Lymphocytes % Monocytes % Eosinophils % Basophils % Nucleated RBC % Absolute Neutrophils Absolute Lymphocytes Absolute Monocytes Absolute Eosinophils Absolute Basophils PT 13.2 H INR 1.3 H APTT 27.8 D-Dimer VBG Lactate Sodium Potassium Chloride Carbon Dioxide Anion Gap BUN Creatinine Est GFR (CKD-EPI 2020) Glucose Calcium Magnesium Total Bilirubin AST ALT Alkaline Phosphatase Troponin I < 50 C-Reactive Protein 4.42 H Total Protein Albumin Lipase Procalcitonin 0.4 03/31/23 16:42 WBC RBC Hgb Hct MCV MCH MCHC RDW Plt Count MPV Immature Gran % Neutrophils % Lymphocytes % Monocytes % Eosinophils % Basophils % Nucleated RBC % Absolute Neutrophils Absolute Lymphocytes Absolute Monocytes Absolute Eosinophils Absolute Basophils PT INR APTT D-Dimer 1348 H VBG Lactate Sodium Potassium Chloride Carbon Dioxide Anion Gap BUN Creatinine Est GFR (CKD-EPI 2020) Glucose Calcium Magnesium Total Bilirubin AST ALT Alkaline Phosphatase Troponin I C-Reactive Protein Total Protein Albumin Lipase Procalcitonin Imaging Abdomen CT scan report/results: report reviewed and image reviewed
[2023-03-31 22:14] LABS: Bilirubin Negative (Negative); Blood Negative (Negative); Clarity Clear (Clear); Glucose >=1000 mg/dL (Negative); Ketones Negative (Negative); Leukocyte Esterase Negative (Negative); Nitrite Negative (Negative); Specific Gravity <= 1.005 (1.005-1.025); Urobilinogen 0.2 mg/dL (Up to 0.2)
[2023-03-31] MEDS: ACETAMINOPHEN 1,000 MG/100 ML BTL 400 MG IVPB (23:24)
[2023-03-31 23:29] LABS: Troponin I < 50 ng/L (<or=60)
[2023-04-01] VITALS (32 sets, daily range): BP systolic 100–136; BP diastolic 56–87; PULSE 64–100; RESP 10–24; TEMP 35.7–37; O2SAT 86–95
--- NOTE | 2023-04-01 | DI.NM_ITS ---
Exam(s) NM HEPATOBILIARY SCAN GRP EXAM: NM HEPATOBILIARY SCAN GRP CLINICAL HISTORY: r/o bile leak after cholecystectomy. TECHNIQUE: Injected dose: 4.5 mCi Tc-99 mebrofenin Initial dynamic images: 60 minutes Delayed static images 70 minutes Post-Gallbladder fillin.02 mcg/kg CCK intravenously over a 30min infusion. . COMPARISON: CT CT ABDOMEN PELVIS W from 03/31/2023 FINDINGS: Normal hepatic transit time. Prompt excretion into the gallbladder. Prompt excretion into the common bile duct. Abnormal activity seen extending from the gallbladder fossa along the right paracolic gut ter beginning on the 16 minutes images and continuing to accumulate along the right paracolic gutter. The findings are consistent with a bile leak.. IMPRESSION: 1. Findings consistent with a bile leak.
[2023-04-01] MEDS: Lactated Ringers 1,000 ML 100 ML IV ×2 (00:04→19:22)
[2023-04-01] MEDS: Normal Saline Flush 10 ML SYR IVP ×5 (01:34→21:54)
[2023-04-01] MEDS: MORPHine 2 MG/ML SYR IVP ×3 (01:57→21:54)
[2023-04-01] MEDS: PIPERACILLIN/TAZO 3.375 GM in Normal Saline 50 ML IVPB ×4 (03:00→20:37)
[2023-04-01] MEDS: HYDROmorphone 2 MG/ML SYR IVP (03:52)
[2023-04-01] MEDS: Lidocaine 2% Jelly 6 ML SYR (04:08)
[2023-04-01 06:17] LABS: Lactate 0.8 mmol/L (0.6-1.4)
[2023-04-01 06:19] LABS: Abs Immature Grans 0.08 10^3/uL (0.0-0.06); Absolute Lymphocyte Count 1.87 10^3/uL (1.2-3.4); Absolute Monocyte Count 0.86 10^3/uL (0.1-0.8); Basophils % 0.4; Eosinophils % 2.3; HCT 38.4 % (40.0-50.0); HGB 12.4 g/dL (13.5-17.5); Immature Grans % 0.6; Lymphocytes % 13.7; MCH 29.3 pg (27.0-33.0); MCHC 32.3 % (32.0-36.0); MCV 91 fL (80-95); MPV 9.9 fL (8.0-11.0); Monocytes % 6.3; Neutrophils % 76.7; Platelet Count 311 10^3/uL (130-400); RBC 4.23 10^6/uL (4.36-5.78); RDW 14.2 % (11.8-14.1); RDW-SD 46.8 fL; WBC 13.64 10^3/uL (4.4-10.8)
[2023-04-01 06:20] LABS: Absolute Basophil Count 0.05 10^3/uL (0.0-0.2); Absolute Eosinophil Count 0.31 10^3/uL (0.0-0.7); Absolute Neutrophil Count 10.46 10^3/uL (1.2-6.7)
[2023-04-01 06:29] LABS: INR 1.6 (0.9-1.1); Prothrombin Time 16.3 sec (9.3-11.0)
[2023-04-01 06:37] LABS: ALT 52 U/L (16-63); AST 29 U/L (15-37); Albumin 2.6 g/dL (3.4-5.0); Alkaline Phosphatase 104 U/L (46-116); BUN 24 mg/dL (7-18); Bilirubin, Total 0.6 mg/dL (0.2-1.0); CREATININE 1.1 mg/dL (0.70-1.30); Calcium 8.5 mg/dL (8.5-10.1); Chloride 107 mmol/L (98-107); Estimated GFR 71.77 (mL/min/1.73m2); Glucose 157 mg/dL (74-106); Potassium 3.7 mmol/L (3.5-5.1); Sodium 140 mmol/L (136-145); Total Protein 6.8 g/dL (6.4-8.2)
[2023-04-01 06:41] LABS: Troponin I < 50 ng/L (<or=60)
--- NOTE | 2023-04-01 07:47 | W.PM.PROGNOT ---
Date of Service Date of service: 04/01/23 Time of Service: 07:47 Assessment and Plan Assessment and plan (1) S/P laparoscopic cholecystectomy: Status: Acute Assessment and plan: HIDA scan today shows a bile leak. I am making arrangements with [facility] for a down and back ERCP with stenting. I explained the natural history of bile leaks, and what to expect with the coming treatment. In the meantime, I think it is okay to advance his diet up to clears for now. Obviously will have to be n.p.o. and the procedure scheduled. Will also continue to hold the warfarin. Subjective Subjective Interval history since last seen: He continues to have pain, mostly in the right side of his abdomen. He might have a little more appetite than yesterday. Exam GI Other: His abdomen is soft, and tender almost in the right lower quadrant. He is not distended. Objective Last Vital Signs Temp 98.6 F 04/01/23 04:52 Pulse 75 04/01/23 04:52 Resp 10 L 04/01/23 04:52 BP 113/74 04/01/23 04:52 Pulse Ox 93 04/01/23 04:52 Laboratory Results - last 24 hr 03/31/23 03/31/23 03/31/23 16:42 16:42 16:42 WBC 20.77 H RBC 5.03 Hgb 14.8 Hct 45.6 MCV 91 MCH 29.4 MCHC 32.5 RDW 14.1 Plt Count 425 H D MPV 10.7 Immature Gran % 0.8 Neutrophils % 83.7 Lymphocytes % 8.7 Monocytes % 6.4 Eosinophils % 0.0 Basophils % 0.4 Nucleated RBC % 0.0 Absolute Neutrophils 17.38 H Absolute Lymphocytes 1.81 Absolute Monocytes 1.33 H Absolute Eosinophils 0.00 Absolute Basophils 0.08 PT INR APTT D-Dimer VBG Lactate 3.5 H* Sodium 133 L Potassium 4.3 D Chloride 95 L Carbon Dioxide 25.5 Anion Gap 12.5 H BUN 32 H Creatinine 1.6 H Est GFR (CKD-EPI 2020) 45.78 Glucose 336 H Calcium 9.9 Magnesium 2.0 Total Bilirubin 0.5 AST 46 H ALT 71 H Alkaline Phosphatase 130 H Troponin I C-Reactive Protein Total Protein 8.7 H Albumin 3.4 Lipase 59 Procalcitonin Urine Color Urine Clarity Urine pH Ur Specific [place] Urine Protein Urine Ketones Urine Blood Urine Nitrite Urine Bilirubin Urine Urobilinogen Ur Leukocyte Esterase Urine Glucose 03/31/23 03/31/23 03/31/23 16:42 16:42 16:42 WBC RBC Hgb Hct MCV MCH MCHC RDW Plt Count MPV Immature Gran % Neutrophils % Lymphocytes % Monocytes % Eosinophils % Basophils % Nucleated RBC % Absolute Neutrophils Absolute Lymphocytes Absolute Monocytes Absolute Eosinophils Absolute Basophils PT 13.2 H INR 1.3 H APTT 27.8 D-Dimer VBG Lactate Sodium Potassium Chloride Carbon Dioxide Anion Gap BUN Creatinine Est GFR (CKD-EPI 2020) Glucose Calcium Magnesium Total Bilirubin AST ALT Alkaline Phosphatase Troponin I < 50 C-Reactive Protein 4.42 H Total Protein Albumin Lipase Procalcitonin 0.4 Urine Color Urine Clarity Urine pH Ur Specific [place] Urine Protein Urine Ketones Urine Blood Urine Nitrite Urine Bilirubin Urine Urobilinogen Ur Leukocyte Esterase Urine Glucose 03/31/23 03/31/23 03/31/23 16:42 22:08 22:55 WBC RBC Hgb Hct MCV MCH MCHC RDW Plt Count MPV Immature Gran % Neutrophils % Lymphocytes % Monocytes % Eosinophils % Basophils % Nucleated RBC % Absolute Neutrophils Absolute Lymphocytes Absolute Monocytes Absolute Eosinophils Absolute Basophils PT INR APTT D-Dimer 1348 H VBG Lactate 2.0 H Sodium Potassium Chloride Carbon Dioxide Anion Gap BUN Creatinine Est GFR (CKD-EPI 2020) Glucose Calcium Magnesium Total Bilirubin AST ALT Alkaline Phosphatase Troponin I C-Reactive Protein Total Protein Albumin Lipase Procalcitonin Urine Color Yellow Urine Clarity Clear Urine pH 5.0 Ur Specific [place] <= 1.005 Urine Protein Negative Urine Ketones Negative Urine Blood Negative Urine Nitrite Negative Urine Bilirubin Negative Urine Urobilinogen 0.2 Ur Leukocyte Esterase Negative Urine Glucose >=1000 H 03/31/23 04/01/23 04/01/23 22:55 01:50 06:05 WBC RBC Hgb Hct MCV MCH MCHC RDW Plt Count MPV Immature Gran % Neutrophils % Lymphocytes % Monocytes % Eosinophils % Basophils % Nucleated RBC % Absolute Neutrophils Absolute Lymphocytes Absolute Monocytes Absolute Eosinophils Absolute Basophils PT INR APTT D-Dimer VBG Lactate 1.0 Sodium Potassium Chloride Carbon Dioxide Anion Gap BUN Creatinine Est GFR (CKD-EPI 2020) Glucose Calcium Magnesium Total Bilirubin AST ALT Alkaline Phosphatase Troponin I < 50 < 50 C-Reactive Protein Total Protein Albumin Lipase Procalcitonin Urine Color Urine Clarity Urine pH Ur Specific [place] Urine Protein Urine Ketones Urine Blood Urine Nitrite Urine Bilirubin Urine Urobilinogen Ur Leukocyte Esterase Urine Glucose 04/01/23 04/01/23 04/01/23 06:05 06:05 06:05 WBC 13.64 H RBC 4.23 L Hgb 12.4 L D Hct 38.4 L MCV 91 MCH 29.3 MCHC 32.3 RDW 14.2 H Plt Count 311 MPV 9.9 Immature Gran % 0.6 Neutrophils % 76.7 Lymphocytes % 13.7 Monocytes % 6.3 Eosinophils % 2.3 Basophils % 0.4 Nucleated RBC % 0.0 Absolute Neutrophils 10.46 H Absolute Lymphocytes 1.87 Absolute Monocytes 0.86 H Absolute Eosinophils 0.31 Absolute Basophils 0.05 PT INR APTT D-Dimer VBG Lactate 0.8 Sodium 140 Potassium 3.7 Chloride 107 Carbon Dioxide 27.0 Anion Gap 6.0 BUN 24 H Creatinine 1.1 Est GFR (CKD-EPI 2020) 71.77 Glucose 157 H Calcium 8.5 Magnesium Total Bilirubin 0.6 AST 29 ALT 52 Alkaline Phosphatase 104 Troponin I C-Reactive Protein Total Protein 6.8 Albumin 2.6 L Lipase Procalcitonin Urine Color Urine Clarity Urine pH Ur Specific [place] Urine Protein Urine Ketones Urine Blood Urine Nitrite Urine Bilirubin Urine Urobilinogen Ur Leukocyte Esterase Urine Glucose 04/01/23 06:05 WBC RBC Hgb Hct MCV MCH MCHC RDW Plt Count MPV Immature Gran % Neutrophils % Lymphocytes % Monocytes % Eosinophils % Basophils % Nucleated RBC % Absolute Neutrophils Absolute Lymphocytes Absolute Monocytes Absolute Eosinophils Absolute Basophils PT 16.3 H INR 1.6 H APTT D-Dimer VBG Lactate Sodium Potassium Chloride Carbon Dioxide Anion Gap BUN Creatinine Est GFR (CKD-EPI 2020) Glucose Calcium Magnesium Total Bilirubin AST ALT Alkaline Phosphatase Troponin I C-Reactive Protein Total Protein Albumin Lipase Procalcitonin Urine Color Urine Clarity Urine pH Ur Specific [place] Urine Protein Urine Ketones Urine Blood Urine Nitrite Urine Bilirubin Urine Urobilinogen Ur Leukocyte Esterase Urine Glucose PAWSS Have you Been Recently Intoxicated or Drunk Within the Last 30 days?: No Have you Ever Experienced Previous Episodes of Alcohol Withdrawal?: No Have you ever Experienced Withdrawal Seizures?: No Have you ever Experienced Delirium Tremens(DT)s?: No Have you ever undergone Alcohol Rehabilitation Treatment (i.e, inpt ot outpatient treatment programs)?: No Have you ever Experienced Blackouts?: No Have you ever Combined Alcohol with other Downers within the last 90 days?: No Have you ever Combined Alcohol with any other Substance of Abuse during the last 90 days?: No Positive Blood Alcohol level on Presentation? [PCS.BAL]: No Evidence of Increased Autonomic Activity (i.e. HR>120, tremor, sweating, agitation, nausea)?: No Result: 0 Time Spent with Patient Time Spent with Patient: 35-49 minutes Time was spent: preparing to see the patient(eg.review tests), ordering medications,tests, procedures, referring, communicating with other health animal care supervisor, indepentently interpreting results and counseling the patient
[2023-04-01] MEDS: Pantoprazole 40 MG VIAL IVP (08:29)
[2023-04-01] MEDS: amLODIPine 5 MG TAB PO (08:30)
[2023-04-01] MEDS: Venlafaxine 50 MG TAB PO (08:30)
[2023-04-01] MEDS: ACETAMINOPHEN 1,000 MG/100 ML BTL 400 MG IVPB ×2 (08:31→15:23)
[2023-04-01] MEDS: HYDROmorphone 2 MG/ML SYR 1 MG IVP ×2 (08:32→09:08)
--- NOTE | 2023-04-01 08:55 | INITIAL_ITS ---
Date of service: 04/01/23 Time of Service: 08:55 Care Management Initial Assmt Initial Assessment REASON FOR HOSPITALIZATION:: abdominal pain PREVIOUS FUNCTIONAL STATUS/SOCIAL/FAMILY SUPPORTS:: Heladio lives in a single family home in [place], [place] with his Kate. They have one son who also lives in [place] and is an active part of their life. They do not have any grandchildren. 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 Kulwinder uses a cane as needed and continues to drive. He is independent with ADLs and does not receive any community services. CURRENT FUNCTIONAL STATUS:: Kulwinder was sitting up in bed in the ICU visiting with his Kate when CM met with him. Kulwinder had only been home for one day before a sharp increase in abdominal pain necessitated his return to the ED. Kulwinder is 5 days post cholecystectomy and there is concern for as bile leak. he is afebrile and his vital signs are stable. Kulwinder's WBC was over 20.0 on admission but is now down to 13.43. He continues to report pain as a 7 or 8/10, even after being medicated with ketorolac. Dr. Barnes has informed him that he will return this afternoon to re-assess him. ADVANCE DIRECTIVES:: none on file Has patient been provided with info about the portal/API?: Yes Did the patient sign up for the portal?: No CODE STATUS:: Full Code INSURANCE COVERAGE / FINANCIAL ISSUES:: /[facility] CURRENT HOME/COMMUNITY SERVICES/EQUIPMENT:: uses a cane as needed PRIMARY CARE PHYSICIAN:: Radhika Hood POTENTIAL DISCHARGE NEEDS:: follow up with PCP, surgeon and plan of care as prescribed PATIENT/FAMILY EDUCATION NEEDS:: Review of discharge instructions including diet, activity, limitations, follow up plan and discuss [employer] Me [employer] TRANSPORTATION:: via private vehicle with - PLAN:: Kulwinder will likely be discharged home with no new services. He will follow up with his surgeon, PCP and plan of care and transport with family. CM will follow and assess for ongoing discharge concerns. PFSH All Active Problems Sepsis (Acute) S/P laparoscopic cholecystectomy (Acute) DJD (degenerative joint disease), lumbar (Acute) History of embolic stroke (Acute) Acquired cerebral atrophy (Acute) Osteopenia determined by x-ray (Acute) Hyperlipemia (Acute) Hypertension (Chronic) Hx of bacteremia (Acute) Patient was treated for E. coli bacteremia at [facility] 03/24-03/28. Initially on Zosyn. And then switched to ceftriaxone on SIRS (systemic inflammatory response syndrome) (Acute) Cholangitis (Acute) USP current use of anticoagulant (Acute) Paroxysmal atrial fibrillation (Acute) Chronic pain (Chronic) Acute hypokalemia (Acute) Adhesive capsulitis of both shoulders (Acute) Sacroiliac joint dysfunction of both sides (Acute) S/P colonoscopy (Acute ~09/06/18) Colorectal polyps (Acute ~09/06/18) History of colonic polyps (Acute) Medical History Abnormal glucose Carpal tunnel syndrome Diabetes mellitus type 2, controlled, without complications Joint pain of leg Major depressive disorder, single episode Other thrombophilia Social History Smoking/Tobacco Use Status: Former Tobacco Use Smoking risk assessment performed?: Yes Alcohol Intake: current Alcohol Intake frequency: a few times a week Alcohol type: hard liquor Drug use: Never Substance use type: does not use Housing: apartment Do you feel safe at home: Yes Do you feel safe in your relationship?: Yes Readmission Within the Past 30 Days Yes or No: Yes Date of First Admission Date of 1st Admission: 03/24/23 Date of this Admission Date of Admission: 03/31/23 This admission was: Through ED Office Visit Since 1st Admission Have you seen your PCP in the office since discharge?: No Had an appointment Been Scheduled?: Yes I. Interview patient and/or Family Difficulty reaching your doctor or getting an office appt?: No Have you had trouble purchasing/ or taking medication?: No Have you had trouble with getting meals at home?: No Did you feel ready for discharge when you left the last time: Yes Assessment for Readmission Summary of readmission circumstances, based upon interviews: Kulwinder was home for less than 24 hours following a 6 day stay during which he had a cholecystectomy. He had sudden onset of acute abdominal pain and returned to the hospital. He is currently being evaluated for an intraa-abdominal complication.
[2023-04-01] MEDS: LINEZOLID 600 MG/300 ML BAG 300 MG IVPB ×2 (10:01→21:15)
[2023-04-01 10:48] LABS: Abs Immature Grans 0.06 10^3/uL (0.0-0.06); Absolute Basophil Count 0.05 10^3/uL (0.0-0.2); Absolute Eosinophil Count 0.13 10^3/uL (0.0-0.7); Absolute Lymphocyte Count 1.64 10^3/uL (1.2-3.4); Basophils % 0.4; HCT 39.8 % (40.0-50.0); HGB 13.1 g/dL (13.5-17.5); Immature Grans % 0.4; Lactate 0.8 mmol/L (0.6-1.4); Lymphocytes % 12.2; MCH 29.9 pg (27.0-33.0); MCHC 32.9 % (32.0-36.0); MCV 91 fL (80-95); MPV 10.1 fL (8.0-11.0); Monocytes % 6.3; Neutrophils % 79.7; Platelet Count 311 10^3/uL (130-400); RBC 4.38 10^6/uL (4.36-5.78); RDW 14.3 % (11.8-14.1); RDW-SD 47.7 fL; WBC 13.43 10^3/uL (4.4-10.8)
--- NOTE | 2023-04-01 11:02 | PT.INNT ---
Date of service: 04/01/23 Time of Service: 11:03 PT Notes Visit Reasons: cholangitis Patient being considered for possible surgery today and is ordered to be seen by PT on 04/02/2023 in the written referral after potenital surgery.
[2023-04-01 11:07] LABS: Absolute Monocyte Count 0.85 10^3/uL (0.1-0.8)
[2023-04-01] MEDS: Insulin Aspart 300 UNITS/3 ML PEN SC (12:07)
--- NOTE | 2023-04-01 13:11 | CHAPLAIN ---
I visited with Heladio and his . They were waiting for Heladio to go for a scope and then learn more about what is going on. I explained my role and offered
[2023-04-01] MEDS: Ketorolac 30 MG/ML VIAL IVP ×2 (15:31→21:54)
--- NOTE | 2023-04-01 16:50 | PGE_ITS ---
Date of Service Date of service: 04/01/23 Time of Service: 16:50 Assessment and Plan Assessment and plan (1) Sepsis: Status: Acute Assessment and plan: Continue Zyvox and Zosyn. Lactate normalized WBC count improved. Hepatobiliary scan shows small bile leak. [facility] contacted by general surgeon, Dr Barnes. Planned down and back ERCP. (2) S/P laparoscopic cholecystectomy: Status: Acute Assessment and plan: POD #5. see above (3) Paroxysmal atrial fibrillation: Status: Acute Assessment and plan: currently in sinus rhythm. Hold warfarin. INR was 1.3. Patient was not on any rate controlling meds i.e. CCB or BB (4) Diabetes mellitus type 2, controlled, without complications: Assessment and plan: hold oral DM agents, use sliding scale, monitor glucose . Now on clear liquid, low fat diet. Subjective Subjective Patient reports: no new complaints, feels better and afebrile; denies bowel movement, nausea, vomiting or shortness of breath Interval history since last seen: Pt is experiencing less abd pain this afternoon; toradol has been relieving his pain. Exam Narrative Exam Narrative: Gen: Lying supine. This AM he appeared ill. This afternoon he is smiling and appears more comfortable. Lungs: Mildly diminished. Clear. Nonlabored breathing. CV: RRR. Abd: Distended. MIld tenderness in RUQ w/o guarding. Exts: No edema, calf tenderness. Objective Last Vital Signs Temp 35.7 C L 04/01/23 15:30 Pulse 66 04/01/23 16:01 Resp 13 04/01/23 16:01 BP 112/87 04/01/23 16:01 Pulse Ox 93 04/01/23 16:01 Laboratory Results - last 24 hr 03/31/23 03/31/23 03/31/23 16:42 16:42 16:42 WBC 20.77 H RBC 5.03 Hgb 14.8 Hct 45.6 MCV 91 MCH 29.4 MCHC 32.5 RDW 14.1 Plt Count 425 H D MPV 10.7 Immature Gran % 0.8 Neutrophils % 83.7 Lymphocytes % 8.7 Monocytes % 6.4 Eosinophils % 0.0 Basophils % 0.4 Nucleated RBC % 0.0 Absolute Neutrophils 17.38 H Absolute Lymphocytes 1.81 Absolute Monocytes 1.33 H Absolute Eosinophils 0.00 Absolute Basophils 0.08 PT INR APTT D-Dimer VBG Lactate 3.5 H* Sodium 133 L Potassium 4.3 D Chloride 95 L Carbon Dioxide 25.5 Anion Gap 12.5 H BUN 32 H Creatinine 1.6 H Est GFR (CKD-EPI 2020) 45.78 Glucose 336 H Calcium 9.9 Magnesium 2.0 Total Bilirubin 0.5 AST 46 H ALT 71 H Alkaline Phosphatase 130 H Troponin I C-Reactive Protein Total Protein 8.7 H Albumin 3.4 Lipase 59 Procalcitonin Urine Color Urine Clarity Urine pH Ur Specific [place] Urine Protein Urine Ketones Urine Blood Urine Nitrite Urine Bilirubin Urine Urobilinogen Ur Leukocyte Esterase Urine Glucose 03/31/23 03/31/23 03/31/23 16:42 16:42 16:42 WBC RBC Hgb Hct MCV MCH MCHC RDW Plt Count MPV Immature Gran % Neutrophils % Lymphocytes % Monocytes % Eosinophils % Basophils % Nucleated RBC % Absolute Neutrophils Absolute Lymphocytes Absolute Monocytes Absolute Eosinophils Absolute Basophils PT 13.2 H INR 1.3 H APTT 27.8 D-Dimer VBG Lactate Sodium Potassium Chloride Carbon Dioxide Anion Gap BUN Creatinine Est GFR (CKD-EPI 2020) Glucose Calcium Magnesium Total Bilirubin AST ALT Alkaline Phosphatase Troponin I < 50 C-Reactive Protein 4.42 H Total Protein Albumin Lipase Procalcitonin 0.4 Urine Color Urine Clarity Urine pH Ur Specific [place] Urine Protein Urine Ketones Urine Blood Urine Nitrite Urine Bilirubin Urine Urobilinogen Ur Leukocyte Esterase Urine Glucose 03/31/23 03/31/23 03/31/23 16:42 22:08 22:55 WBC RBC Hgb Hct MCV MCH MCHC RDW Plt Count MPV Immature Gran % Neutrophils % Lymphocytes % Monocytes % Eosinophils % Basophils % Nucleated RBC % Absolute Neutrophils Absolute Lymphocytes Absolute Monocytes Absolute Eosinophils Absolute Basophils PT INR APTT D-Dimer 1348 H VBG Lactate 2.0 H Sodium Potassium Chloride Carbon Dioxide Anion Gap BUN Creatinine Est GFR (CKD-EPI 2020) Glucose Calcium Magnesium Total Bilirubin AST ALT Alkaline Phosphatase Troponin I C-Reactive Protein Total Protein Albumin Lipase Procalcitonin Urine Color Yellow Urine Clarity Clear Urine pH 5.0 Ur Specific [place] <= 1.005 Urine Protein Negative Urine Ketones Negative Urine Blood Negative Urine Nitrite Negative Urine Bilirubin Negative Urine Urobilinogen 0.2 Ur Leukocyte Esterase Negative Urine Glucose >=1000 H 03/31/23 04/01/23 04/01/23 22:55 01:50 06:05 WBC RBC Hgb Hct MCV MCH MCHC RDW Plt Count MPV Immature Gran % Neutrophils % Lymphocytes % Monocytes % Eosinophils % Basophils % Nucleated RBC % Absolute Neutrophils Absolute Lymphocytes Absolute Monocytes Absolute Eosinophils Absolute Basophils PT INR APTT D-Dimer VBG Lactate 1.0 Sodium Potassium Chloride Carbon Dioxide Anion Gap BUN Creatinine Est GFR (CKD-EPI 2020) Glucose Calcium Magnesium Total Bilirubin AST ALT Alkaline Phosphatase Troponin I < 50 < 50 C-Reactive Protein Total Protein Albumin Lipase Procalcitonin Urine Color Urine Clarity Urine pH Ur Specific [place] Urine Protein Urine Ketones Urine Blood Urine Nitrite Urine Bilirubin Urine Urobilinogen Ur Leukocyte Esterase Urine Glucose 04/01/23 04/01/23 04/01/23 06:05 06:05 06:05 WBC 13.64 H RBC 4.23 L Hgb 12.4 L D Hct 38.4 L MCV 91 MCH 29.3 MCHC 32.3 RDW 14.2 H Plt Count 311 MPV 9.9 Immature Gran % 0.6 Neutrophils % 76.7 Lymphocytes % 13.7 Monocytes % 6.3 Eosinophils % 2.3 Basophils % 0.4 Nucleated RBC % 0.0 Absolute Neutrophils 10.46 H Absolute Lymphocytes 1.87 Absolute Monocytes 0.86 H Absolute Eosinophils 0.31 Absolute Basophils 0.05 PT INR APTT D-Dimer VBG Lactate 0.8 Sodium 140 Potassium 3.7 Chloride 107 Carbon Dioxide 27.0 Anion Gap 6.0 BUN 24 H Creatinine 1.1 Est GFR (CKD-EPI 2020) 71.77 Glucose 157 H Calcium 8.5 Magnesium Total Bilirubin 0.6 AST 29 ALT 52 Alkaline Phosphatase 104 Troponin I C-Reactive Protein Total Protein 6.8 Albumin 2.6 L Lipase Procalcitonin Urine Color Urine Clarity Urine pH Ur Specific [place] Urine Protein Urine Ketones Urine Blood Urine Nitrite Urine Bilirubin Urine Urobilinogen Ur Leukocyte Esterase Urine Glucose 04/01/23 04/01/23 04/01/23 06:05 10:40 10:40 WBC 13.43 H RBC 4.38 Hgb 13.1 L Hct 39.8 L MCV 91 MCH 29.9 MCHC 32.9 RDW 14.3 H Plt Count 311 MPV 10.1 Immature Gran % 0.4 Neutrophils % 79.7 Lymphocytes % 12.2 Monocytes % 6.3 Eosinophils % 1.0 Basophils % 0.4 Nucleated RBC % 0.0 Absolute Neutrophils 10.70 H Absolute Lymphocytes 1.64 Absolute Monocytes 0.85 H Absolute Eosinophils 0.13 Absolute Basophils 0.05 PT 16.3 H INR 1.6 H APTT D-Dimer VBG Lactate 0.8 Sodium Potassium Chloride Carbon Dioxide Anion Gap BUN Creatinine Est GFR (CKD-EPI 2020) Glucose Calcium Magnesium Total Bilirubin AST ALT Alkaline Phosphatase Troponin I C-Reactive Protein Total Protein Albumin Lipase Procalcitonin Urine Color Urine Clarity Urine pH Ur Specific [place] Urine Protein Urine Ketones Urine Blood Urine Nitrite Urine Bilirubin Urine Urobilinogen Ur Leukocyte Esterase Urine Glucose PAWSS Have you Been Recently Intoxicated or Drunk Within the Last 30 days?: No Have you Ever Experienced Previous Episodes of Alcohol Withdrawal?: No Have you ever Experienced Withdrawal Seizures?: No Have you ever Experienced Delirium Tremens(DT)s?: No Have you ever undergone Alcohol Rehabilitation Treatment (i.e, inpt ot outpatient treatment programs)?: No Have you ever Experienced Blackouts?: No Have you ever Combined Alcohol with other Downers within the last 90 days?: No Have you ever Combined Alcohol with any other Substance of Abuse during the last 90 days?: No Positive Blood Alcohol level on Presentation? [PCS.BAL]: No Evidence of Increased Autonomic Activity (i.e. HR>120, tremor, sweating, agitation, nausea)?: No Result: 0 Time Spent with Patient Time Spent with Patient: 25-34 minutes Time was spent: preparing to see the patient(eg.review tests), obtaining and/or reviewing separately otained hiistory, referring, communicating with other health technical healthcare consultant, indepentently interpreting results and care coordination
[2023-04-01] MEDS: Polyethylene Glycol 3350 17 GM PACKET PO (17:23)
[2023-04-01] MEDS: Docusate Sodium 100 MG CAP PO ×2 (17:23→20:37)
[2023-04-01] MEDS: Senna TAB 1 TAB PO (17:23)
[2023-04-01] MEDS: traMADol 50 MG TAB PO (17:24)
[2023-04-02] VITALS (40 sets, daily range): BP systolic 115–145; BP diastolic 71–89; PULSE 68–90; RESP 12–19; TEMP 36.5–37.5; O2SAT 90–96
[2023-04-02] MEDS: Insulin Aspart 300 UNITS/3 ML PEN SC (00:52)
[2023-04-02] MEDS: ACETAMINOPHEN 1,000 MG/100 ML BTL 100 MG IVPB ×2 (00:57→08:49)
[2023-04-02] MEDS: MORPHine 2 MG/ML SYR IVP (02:07)
[2023-04-02] MEDS: PIPERACILLIN/TAZO 3.375 GM in Normal Saline 50 ML IVPB ×4 (02:08→20:23)
[2023-04-02] MEDS: Lactated Ringers 1,000 ML 100 ML IV ×3 (02:09→17:23)
[2023-04-02] MEDS: Pantoprazole 40 MG VIAL IVP (08:49)
[2023-04-02] MEDS: amLODIPine 5 MG TAB PO (08:49)
[2023-04-02] MEDS: Normal Saline Flush 10 ML SYR IVP ×3 (08:50→18:59)
[2023-04-02] MEDS: Ketorolac 30 MG/ML VIAL IVP (08:50)
--- NOTE | 2023-04-02 08:51 | PDOC.CMPRO ---
Date of service: 04/02/23 Time of Service: 08:51 Care Management Progress Note Progress Note Text Progress Note Text: S/O:Kulwinder was sitting up in bed visiting with his when CM met with him. He informed CM that he is feeling better and that his pain is fairly well controlled with medication. He also stated that it helps knowing what is wrong (bile leak) and what the plan of care is. Kulwinder is scheduled to go to [facility] tomorrow for a down and back ERCP to correct the problem. He remains afebrile and his vital signs are stable. A:Kulwinder is a 73 year old man admitted on 03/31/23 with abdominal pain P:Kulwinder will likely be discharged home with no new services. He will follow up with his surgeon, PCP and plan of care and transport with family. CM will follow and assess for ongoing discharge concerns.
[2023-04-02 10:11] LABS: INR 1.7 (0.9-1.1); Prothrombin Time 17.6 sec (9.3-11.0)
[2023-04-02] MEDS: Methylnaltrexone 12 MG/0.6 ML VIAL SC ×2 (10:25→18:06)
--- NOTE | 2023-04-02 12:37 | NT_ITS ---
PT Notes Visit Reasons: Cholangitis Original referral meant for PT evaluation after surgery to minimize functional decline. Surgery got movemed to tomorrow and Dr. Delacruz recommends waiting for PT eval until after patient has a down and back ECRP at [facility] tomorrow. Nurse Greta rice.
[2023-04-02] MEDS: traMADol 50 MG TAB PO (16:30)
[2023-04-02] MEDS: ACETAMINOPHEN 1,000 MG/100 ML BTL 400 MG IVPB (16:30)
[2023-04-02] MEDS: Phytonadione 5 MG TABLET 2.5 MG PO (18:59)
[2023-04-02 19:33] LABS: INR 1.6 (0.9-1.1); Prothrombin Time 16.4 sec (9.3-11.0)
[2023-04-03] VITALS: PULSE 72
[2023-04-03] MEDS: ACETAMINOPHEN 1,000 MG/100 ML BTL 400 MG IVPB ×2 (00:40→15:30)
[2023-04-03] MEDS: traMADol 50 MG TAB PO ×2 (00:41→20:09)
[2023-04-03] MEDS: PIPERACILLIN/TAZO 3.375 GM in Normal Saline 50 ML IVPB ×4 (02:54→20:09)
[2023-04-03 02:56] VITALS: BP 164/92; PULSE 70; RESP 18; TEMP 36.4; O2SAT 97
[2023-04-03] MEDS: Lactated Ringers 1,000 ML 100 ML IV (04:39)
[2023-04-03 06:35] LABS: INR 1.4 (0.9-1.1); Prothrombin Time 14.2 sec (9.3-11.0)
[2023-04-03 07:09] VITALS: BP 163/94; PULSE 69; RESP 16; TEMP 36.7; O2SAT 96
[2023-04-03] MEDS: Normal Saline Flush 10 ML SYR IVP ×5 (07:29→21:23)
[2023-04-03] MEDS: amLODIPine 5 MG TAB PO (07:35)
[2023-04-03] MEDS: Pantoprazole 40 MG VIAL IVP (07:36)
--- NOTE | 2023-04-03 10:11 | PDOC.CMPRO ---
Date of service: 04/03/23 Time of Service: 10:11 Care Management Progress Note Progress Note Text Progress Note Text: S/O:Kulwinder was transferred to [facility] today for a down and back ERCP so CM was unable to meet with him. Per his surgeon, the procedure went well and he now has a stent. A:Kulwinder is a 73 year old man admitted on 03/31/23 with abdominal pain P:Kulwinder will likely be discharged home with no new services. He will follow up with his surgeon, PCP and plan of care and transport with family. CM will follow and assess for ongoing discharge concerns.
--- NOTE | 2023-04-03 11:53 | NT_ITS ---
PT Notes Visit Reasons: Cholangitis RAAD. Left for ERCP at [facility] at 8:30 am today and has not returned back as of this time. Will continue to follow up and evaluate readiness for PT when patient comes back.
--- NOTE | 2023-04-03 11:53 | PT.INNT ---
PT Notes Visit Reasons: Cholangitis RAAD. Left for ERCP at [facility] at 8:30 am today and has not returned back as of this time. Will continue to follow up and evaluate readiness for PT when patient comes back.
[2023-04-03 14:26] VITALS: BP 154/92; PULSE 79; RESP 19; TEMP 36.3; O2SAT 94
[2023-04-03 15:00] VITALS: PULSE 84
[2023-04-03] MEDS: Docusate Sodium 100 MG CAP PO ×2 (15:44→20:09)
--- NOTE | 2023-04-03 16:22 | PT.INIE ---
PT Notes Visit Reasons: Cholangitis Physical Therapy Inpatient Initial Evaluation Date: 04/03/2023 Referring Doctor: Franco Delacruz MD PT Orders: PT CONSULT: Eval/treat Precautions: Fall. Standard. Activity as tolerated. Patient Profile/Admitting Diagnosis: Heladio is a 73-year-old male admitted for management of sepsis, s/p laparoscopic cholecystectomy, PAF, and type 2 diabetes mellitus. He is status post ERCP at [facility] [place] on [place] day 0 (down and back surgery). PMHX: All Active Problems? Sepsis (Acute) S/P laparoscopic cholecystectomy (Acute) DJD (degenerative joint disease), lumbar (Acute) History of embolic stroke (Acute) Acquired cerebral atrophy (Acute) Osteopenia determined by x-ray (Acute) Hyperlipemia (Acute) Hypertension (Chronic) Hx of bacteremia (Acute) Patient was treated for E. coli bacteremia at [facility] 03/24-03/28.? Initially on Zosyn.? And then switched to ceftriaxone on SIRS (systemic inflammatory response syndrome) (Acute) Cholangitis (Acute) director long term care current use of anticoagulant (Acute) Paroxysmal atrial fibrillation (Acute) Chronic pain (Chronic) Acute hypokalemia (Acute) Adhesive capsulitis of both shoulders (Acute) Sacroiliac joint dysfunction of both sides (Acute) S/P colonoscopy (Acute ~09/06/18) Colorectal polyps (Acute ~09/06/18) History of colonic polyps (Acute) Medical History? Abnormal glucose Carpal tunnel syndrome Diabetes mellitus type 2, controlled, without complications Joint pain of leg Major depressive disorder, single episode Other thrombophilia Social History/Home Situation: Lives wit in a private home with 3 steps to enter with rails on both sides. Independent with all aspects of ADLs prior to surgery. Occasionally uses single-point cane Equipment Owned/DME: [facility] Subjective: Denies low back pain nor sciatica at rest and with movement. Does not report pain throughout session. Objective: General Observation: Supine in bed. present in room. In NAD. Odom catheter in place. Mental Status: Alert and oriented as to person, place, time, and purpose. Able to pay attention, focus, and respond appropriately. Pain: Denies Vital Signs: Closely monitored by nursing staff ROM: Right Upper Extremity: Shoulder Flexion WFL. Shoulder abduction WFL. Elbow flexion WFL. Wrist flexion WFL. Functional opening and closing of hand WFL. Left Upper Extremity: Shoulder Flexion WFL. Shoulder abduction WFL. Elbow flexion WFL. Wrist flexion WFL. Functional opening and closing of hand WFL. Right Lower Extremity: Hip flexion WFL. Hip abduction WFL. Knee flexion WFL. Ankle dorsiflexion WFL. Ankle plantarflexion WFL. Left Lower Extremity: Hip flexion WFL. Hip abduction WFL. Knee flexion WFL. Ankle dorsiflexion WFL. Ankle plantarflexion WFL. Strength: Right Upper Extremity: Shoulder flexors 4/5. Shoulder abductors 4/5. Elbow flexors 5/5. Elbow extensors 5/5. Grade And Center Marker strong. Left Upper Extremity: Shoulder flexors 4/5. Shoulder abductors 4/5. Elbow flexors 5/5. Elbow extensors 5/5. Grade And Center Marker strong. Right Lower Extremity: Hip flexors 4/5. Hip abductors 4/5. Knee flexors 5/5. Knee extensors 5/5. Ankle dorsiflexors 4/5. Ankle plantarflexors 4/5. Left Lower Extremity: Hip flexors 4/5. Hip abductors 4/5. Knee flexors 5/5. Knee extensors 5/5. Ankle dorsiflexors 4/5. Ankle plantarflexors 4/5. Bed Mobility/Transfers: Rolling independent Supine to sit independent Sit to supine independent Sit to stand independent Stand to sit independent Bed to reclining chair independent Reclining chair to bed independent Gait: Instructed patient with level surface ambulation of 600 feet requiring supervision assist for odom bag mangement only. gait pattern unremarkable. No report of pain. [place] good about walking. Balance: Static Sitting: Normal Dynamic Sitting: Normal Static Standing: Good Dynamic Standing: Fair Special Tests: Mobility Limitations Standardized Measure [facility] AM-PAC 6 clicks Basic Mobility Inpatient Short Form: Raw Score: 24 CMS Score: 11% deficit Informed Consent/Education: Patient was instructed in purpose of PT consult and plan of care. Agreeable to proceed with established PT POC to achieve personal goals. Assessment: PT evaluation only. Independent inside room with single point cane. May walk with nursing in the hallway for odom bag management only and with use of single point cane. [place] a 68947 low complexity based on the following: History: 73-year-old male with past medical history as indicated above Examination: As above Presentation: Satble Decision Makin low complexity Goals: N/A. PT evaluation only. Plan of Care/Treatment Plan: N/A. PT evaluation only. DISCHARGE RECOMMENDATIONS: [X] Home with no services. Home when medically cleared by hospitalist. [] Home with services [specify] [] Home with outpatient PT [] [] SNF for continued rehabilitation [] [] [facility] [] [] SNF versus LTC based on ability to participate and progress [] TREATMENT CODE/TIME: 47965 x 20 minutes (1 unit) beginning at 16:03 PM. Thank you for the opportunity to participate in the care of this patient. Vanesa Zacarias PT, DPT, CLT [facility] [place], [place]
[2023-04-03] MEDS: Bisacodyl 10 MG SUPP PR (16:51)
[2023-04-03] MEDS: metFORMIN 500 MG TAB 1000 MG PO (16:51)
[2023-04-03] MEDS: Insulin Aspart 300 UNITS/3 ML PEN SC (17:10)
[2023-04-03] MEDS: Enoxaparin 80 MG/0.8 ML SYR SC (17:11)
[2023-04-03 19:49] VITALS: BP 158/93; PULSE 87; TEMP 37.1; O2SAT 97
[2023-04-03] MEDS: Atorvastatin 40 MG TAB PO (20:07)
[2023-04-03] MEDS: Acetaminophen 325 MG TAB 650 MG PO (20:07)
[2023-04-03] MEDS: Warfarin 1 MG TAB 2 MG PO (20:08)
[2023-04-03] MEDS: Potassium Chloride 20 MEQ TABCR PO (20:08)
[2023-04-03] MEDS: Methadone 10 MG TAB 20 MG PO (20:08)
[2023-04-03] MEDS: Magnesium Oxide 400 MG TAB PO (20:09)
[2023-04-03] MEDS: glipiZIDE 5 MG TAB PO (21:23)
[2023-04-03] MEDS: Ketorolac 30 MG/ML VIAL IVP (21:23)
[2023-04-04] VITALS (10 sets, daily range): BP systolic 95–146; BP diastolic 65–88; PULSE 80–98; RESP 16–18; TEMP 36.2–37.2; O2SAT 94–98
[2023-04-04] MEDS: Insulin Aspart 300 UNITS/3 ML PEN SC ×5 (01:12→22:29)
[2023-04-04] MEDS: PIPERACILLIN/TAZO 3.375 GM in Normal Saline 50 ML IVPB ×4 (01:13→20:24)
[2023-04-04] MEDS: Acetaminophen 325 MG TAB 650 MG PO (02:15)
[2023-04-04] MEDS: Enoxaparin 80 MG/0.8 ML SYR SC ×2 (05:25→17:51)
[2023-04-04 06:41] LABS: Abs Immature Grans 0.09 10^3/uL (0.0-0.06); Absolute Neutrophil Count 13.99 10^3/uL (1.2-6.7); Basophils % 0.3; Eosinophils % 0.2; HCT 37.1 % (40.0-50.0); HGB 12.3 g/dL (13.5-17.5); Immature Grans % 0.5; Lymphocytes % 15.6; MCH 29.9 pg (27.0-33.0); MCHC 33.2 % (32.0-36.0); MCV 90 fL (80-95); MPV 10.6 fL (8.0-11.0); Monocytes % 5.4; Platelet Count 433 10^3/uL (130-400); RBC 4.12 10^6/uL (4.36-5.78); RDW 14.1 % (11.8-14.1); RDW-SD 46.5 fL; WBC 17.93 10^3/uL (4.4-10.8)
[2023-04-04 06:53] LABS: Absolute Basophil Count 0.05 10^3/uL (0.0-0.2); Absolute Eosinophil Count 0.04 10^3/uL (0.0-0.7); Absolute Monocyte Count 0.97 10^3/uL (0.1-0.8)
[2023-04-04 07:13] LABS: INR 1.3 (0.9-1.1)
[2023-04-04 07:19] LABS: ALT 63 U/L (16-63); AST 118 U/L (15-37); Albumin 2.3 g/dL (3.4-5.0); Alkaline Phosphatase 388 U/L (46-116); Anion Gap 11.2 mmol/L (3-11); BUN 27 mg/dL (7-18); Bilirubin, Total 1.7 mg/dL (0.2-1.0); CO2 24.8 mmol/L (21.0-32.0); CREATININE 1.2 mg/dL (0.70-1.30); Calcium 8.8 mg/dL (8.5-10.1); Chloride 103 mmol/L (98-107); Estimated GFR 64.65 (mL/min/1.73m2); Glucose 154 mg/dL (74-106); Potassium 3.8 mmol/L (3.5-5.1); Sodium 139 mmol/L (136-145); Total Protein 6.7 g/dL (6.4-8.2)
[2023-04-04] MEDS: Pantoprazole 40 MG TABCR PO (07:28)
[2023-04-04] MEDS: Polyethylene Glycol 3350 17 GM PACKET PO (07:59)
[2023-04-04] MEDS: Irbesartan 75 MG TAB 150 MG PO (08:00)
[2023-04-04] MEDS: Potassium Chloride 20 MEQ TABCR PO ×2 (08:01→20:23)
[2023-04-04] MEDS: hydroCHLOROthiazide 12.5 MG TAB PO (08:01)
[2023-04-04] MEDS: metFORMIN 500 MG TAB 1000 MG PO ×2 (08:01→16:57)
[2023-04-04] MEDS: Methadone 10 MG TAB PO (08:02)
[2023-04-04] MEDS: amLODIPine 5 MG TAB PO (08:02)
[2023-04-04] MEDS: Magnesium Oxide 400 MG TAB PO ×2 (08:03→20:23)
[2023-04-04] MEDS: Empaglifozin 25 MG TAB PO (08:03)
[2023-04-04] MEDS: Docusate Sodium 100 MG CAP PO ×2 (08:04→20:23)
--- NOTE | 2023-04-04 16:30 | PGE_ITS ---
Date of Service Date of service: 04/04/23 Time of Service: 16:30 Assessment and Plan Assessment and plan (1) Bile leak: Status: Acute Assessment and plan: Heladio is doing well. I did discuss his laboratory results with him. His WBC count is up today as well as his LFT's. This is most likely secondary to the ERCP he underwent yesterday. He is on antibiotics still. I will continue those for now. I started him on all his Home medications yesterday Will restart his coumadin tomorrow as long as his WBC count is not worsening. If his WBC count is worsening he may need to undergo laparoscopy with washout of the bile that leaked from a duct of [place]. I will reassess tomorrow Subjective Subjective Interval history since last seen: Mr Clemens is doing well. He had a BM finally today. He has no abdominal pain. He has been eating without N/V Exam Const General: cooperative, comfortable and no acute distress [facility] Head: normocephalic and atraumatic Resp Effort & Inspection: normal respiratory effort Auscultation: clear to auscultation bilaterally Cardio Rate: regular rate Rhythm: regular rhythm GI Palpation: soft, no hepatosplenomegaly and nontender Auscultation: normal bowel sounds Objective Last Vital Signs Temp 97.7 F 04/04/23 15:14 Pulse 98 H 04/04/23 15:14 Resp 16 04/04/23 15:14 BP 109/72 04/04/23 15:41 Pulse Ox 97 04/04/23 15:14 Laboratory Results - last 24 hr 04/04/23 04/04/23 04/04/23 05:55 05:55 05:55 WBC 17.93 H RBC 4.12 L Hgb 12.3 L Hct 37.1 L MCV 90 MCH 29.9 MCHC 33.2 RDW 14.1 Plt Count 433 H MPV 10.6 Immature Gran % 0.5 Neutrophils % 78.0 Lymphocytes % 15.6 Monocytes % 5.4 Eosinophils % 0.2 Basophils % 0.3 Nucleated RBC % 0.0 Absolute Neutrophils 13.99 H Absolute Lymphocytes 2.80 Absolute Monocytes 0.97 H Absolute Eosinophils 0.04 Absolute Basophils 0.05 PT 13.0 H INR 1.3 H Sodium 139 Potassium 3.8 Chloride 103 Carbon Dioxide 24.8 Anion Gap 11.2 H BUN 27 H Creatinine 1.2 Est GFR (CKD-EPI 2020) 64.65 Glucose 154 H Calcium 8.8 Total Bilirubin 1.7 H AST 118 H ALT 63 Alkaline Phosphatase 388 H Total Protein 6.7 Albumin 2.3 L PAWSS Have you Been Recently Intoxicated or Drunk Within the Last 30 days?: No Have you Ever Experienced Previous Episodes of Alcohol Withdrawal?: No Have you ever Experienced Withdrawal Seizures?: No Have you ever Experienced Delirium Tremens(DT)s?: No Have you ever undergone Alcohol Rehabilitation Treatment (i.e, inpt ot outpatient treatment programs)?: No Have you ever Experienced Blackouts?: No Have you ever Combined Alcohol with other Downers within the last 90 days?: No Have you ever Combined Alcohol with any other Substance of Abuse during the last 90 days?: No Positive Blood Alcohol level on Presentation? [PCS.BAL]: No Evidence of Increased Autonomic Activity (i.e. HR>120, tremor, sweating, agitation, nausea)?: No Result: 0 Time Spent with Patient Time Spent with Patient: 25-34 minutes Time was spent: preparing to see the patient(eg.review tests), indepentently interpreting results and counseling the patient
[2023-04-04] MEDS: Warfarin 1 MG TAB 2 MG PO (20:24)
[2023-04-04] MEDS: Atorvastatin 40 MG TAB PO (20:24)
[2023-04-04] MEDS: glipiZIDE 5 MG TAB PO (22:30)
[2023-04-05] MEDS: PIPERACILLIN/TAZO 3.375 GM in Normal Saline 50 ML IVPB ×4 (02:35→21:11)
[2023-04-05] MEDS: Enoxaparin 80 MG/0.8 ML SYR SC ×2 (06:24→17:43)
[2023-04-05 06:30] LABS: Abs Immature Grans 0.06 10^3/uL (0.0-0.06); Absolute Basophil Count 0.08 10^3/uL (0.0-0.2); Absolute Eosinophil Count 0.02 10^3/uL (0.0-0.7); Absolute Lymphocyte Count 2.31 10^3/uL (1.2-3.4); Absolute Neutrophil Count 11.59 10^3/uL (1.2-6.7); Basophils % 0.5; Eosinophils % 0.1; HCT 32.3 % (40.0-50.0); HGB 10.6 g/dL (13.5-17.5); Immature Grans % 0.4; Lymphocytes % 15.4; MCHC 32.8 % (32.0-36.0); MCV 92 fL (80-95); MPV 10.3 fL (8.0-11.0); Monocytes % 6.5; Neutrophils % 77.1; Platelet Count 358 10^3/uL (130-400); RBC 3.53 10^6/uL (4.36-5.78); RDW 14.5 % (11.8-14.1); RDW-SD 47.8 fL; WBC 15.03 10^3/uL (4.4-10.8)
[2023-04-05 06:31] VITALS: BP 111/77; PULSE 112; RESP 16; TEMP 36.8; O2SAT 94
[2023-04-05 06:33] LABS: Absolute Monocyte Count 0.98 10^3/uL (0.1-0.8)
[2023-04-05 06:40] LABS: Prothrombin Time 12.7 sec (9.3-11.0)
[2023-04-05 06:44] LABS: INR 1.2 (0.9-1.1)
[2023-04-05 07:05] LABS: ALT 88 U/L (16-63); AST 63 U/L (15-37); Albumin 2.2 g/dL (3.4-5.0); Alkaline Phosphatase 519 U/L (46-116); BUN 26 mg/dL (7-18); Bilirubin, Total 0.7 mg/dL (0.2-1.0); CREATININE 1.2 mg/dL (0.70-1.30); Calcium 8.5 mg/dL (8.5-10.1); Chloride 102 mmol/L (98-107); Estimated GFR 64.65 (mL/min/1.73m2); Glucose 150 mg/dL (74-106); Potassium 3.9 mmol/L (3.5-5.1); Sodium 137 mmol/L (136-145); Total Protein 6.3 g/dL (6.4-8.2)
[2023-04-05] MEDS: Empaglifozin 25 MG TAB PO (07:46)
[2023-04-05] MEDS: Potassium Chloride 20 MEQ TABCR PO ×2 (07:46→21:20)
[2023-04-05] MEDS: metFORMIN 500 MG TAB 1000 MG PO ×2 (07:46→17:44)
[2023-04-05] MEDS: hydroCHLOROthiazide 12.5 MG TAB PO (07:46)
[2023-04-05] MEDS: Pantoprazole 40 MG TABCR PO (07:46)
[2023-04-05] MEDS: Polyethylene Glycol 3350 17 GM PACKET PO (07:46)
[2023-04-05] MEDS: Docusate Sodium 100 MG CAP PO ×2 (07:46→21:20)
[2023-04-05] MEDS: Magnesium Oxide 400 MG TAB PO ×2 (07:46→21:20)
[2023-04-05] MEDS: Irbesartan 75 MG TAB 150 MG PO (07:46)
[2023-04-05] MEDS: Insulin Aspart 300 UNITS/3 ML PEN SC ×4 (07:47→21:30)
[2023-04-05] MEDS: amLODIPine 5 MG TAB PO (07:47)
[2023-04-05 08:00] VITALS: RESP 18
--- NOTE | 2023-04-05 12:48 | PGE_ITS ---
Date of Service Date of service: 04/05/23 Time of Service: 12:48 Assessment and Plan Assessment and plan (1) Bile leak: Status: Resolved Assessment and plan: Heladio is doing well. I did discuss his laboratory results with him. His WBC count is down today as well as his LFT's. He is on antibiotics still. I will continue those for now. I started him on all his Home medications and his pain is well controlled Restart his coumadin. I have discussed with Heladio staying another night to make sure he doesnt develop fevers and that his Leukocytosis continues to trend down. Hopefully Home tomorrow on Augmentin po and Lovenox bridging until Coumadin levels are back to INR of 3 (2) Depression due to physical illness: Status: Acute Assessment and plan: Heladio is feeling depressed and discouraged. He is doing well and improving. I reassured him that what he is feeling is normal with what he has been through. I have recommended that he get outside today with his for some sunshine and fresh air. I will get him home as soon as I can and that should help as well. Subjective Subjective Interval history since last seen: Heladio is sitting at the side of the bed eating his lunch. He has had several BM's. His pain is well controlled on all his home meds. He is down/depressed today. Vital signs are stable. He is afebrile. WBC count has decreased to 15. Electrolytes and platelets are normal. Exam Const General: cooperative, comfortable and no acute distress Nutritional Appearance: average body habitus Orientation: alert and oriented x3 HENMT Head: normocephalic and atraumatic Resp Effort & Inspection: normal respiratory effort Auscultation: clear to auscultation bilaterally Cardio Rate: regular rate Rhythm: regular rhythm GI Inspection: incision (c/d/i) Palpation: soft, no hepatosplenomegaly and nontender Auscultation: normal bowel sounds Objective Last Vital Signs Temp 98.2 F 04/05/23 06:31 Pulse 112 H 04/05/23 06:31 Resp 18 04/05/23 08:00 BP 111/77 04/05/23 06:31 Pulse Ox 94 04/05/23 06:31 Laboratory Results - last 24 hr 04/05/23 04/05/23 04/05/23 05:53 05:53 05:53 WBC 15.03 H RBC 3.53 L Hgb 10.6 L Hct 32.3 L MCV 92 MCH 30.0 MCHC 32.8 RDW 14.5 H Plt Count 358 MPV 10.3 Immature Gran % 0.4 Neutrophils % 77.1 Lymphocytes % 15.4 Monocytes % 6.5 Eosinophils % 0.1 Basophils % 0.5 Nucleated RBC % 0.0 Absolute Neutrophils 11.59 H Absolute Lymphocytes 2.31 Absolute Monocytes 0.98 H Absolute Eosinophils 0.02 Absolute Basophils 0.08 PT 12.7 H INR 1.2 H Sodium 137 Potassium 3.9 Chloride 102 Carbon Dioxide 24.0 Anion Gap 11.0 BUN 26 H Creatinine 1.2 Est GFR (CKD-EPI 2020) 64.65 Glucose 150 H Calcium 8.5 Total Bilirubin 0.7 AST 63 H ALT 88 H Alkaline Phosphatase 519 H Total Protein 6.3 L Albumin 2.2 L PAWSS Have you Been Recently Intoxicated or Drunk Within the Last 30 days?: No Have you Ever Experienced Previous Episodes of Alcohol Withdrawal?: No Have you ever Experienced Withdrawal Seizures?: No Have you ever Experienced Delirium Tremens(DT)s?: No Have you ever undergone Alcohol Rehabilitation Treatment (i.e, inpt ot outpatien t treatment programs)?: No Have you ever Experienced Blackouts?: No Have you ever Combined Alcohol with other Downers within the last 90 days?: No Have you ever Combined Alcohol with any other Substance of Abuse during the last 90 days?: No Positive Blood Alcohol level on Presentation? [PCS.BAL]: No Evidence of Increased Autonomic Activity (i.e. HR>120, tremor, sweating, agitation, nausea)?: No Result: 0 Time Spent with Patient Time Spent with Patient: 25-34 minutes Time was spent: preparing to see the patient(eg.review tests), obtaining and/or reviewing separately otained hiistory, indepentently interpreting results and counseling the patient
[2023-04-05 15:00] VITALS: BP 106/62; PULSE 88; RESP 18; TEMP 37.6; O2SAT 97
[2023-04-05] MEDS: Methadone 10 MG TAB 20 MG PO (21:19)
[2023-04-05] MEDS: Acetaminophen 325 MG TAB 650 MG PO (21:20)
[2023-04-05] MEDS: Warfarin 4 MG TAB PO (21:20)
[2023-04-05] MEDS: glipiZIDE 5 MG TAB PO (21:20)
[2023-04-05] MEDS: Atorvastatin 40 MG TAB PO (21:20)
[2023-04-06 00:08] VITALS: BP 123/82; PULSE 54; RESP 18; TEMP 36.9; O2SAT 97
[2023-04-06] MEDS: PIPERACILLIN/TAZO 3.375 GM in Normal Saline 50 ML IVPB ×3 (01:58→13:10)
[2023-04-06] MEDS: Enoxaparin 80 MG/0.8 ML SYR SC (05:42)
[2023-04-06 06:35] LABS: Abs Immature Grans 0.06 10^3/uL (0.0-0.06); Absolute Basophil Count 0.05 10^3/uL (0.0-0.2); Absolute Lymphocyte Count 2.51 10^3/uL (1.2-3.4); Absolute Monocyte Count 1.05 10^3/uL (0.1-0.8); Basophils % 0.4; Eosinophils % 0.1; HCT 31.6 % (40.0-50.0); HGB 10.1 g/dL (13.5-17.5); Immature Grans % 0.4; Lymphocytes % 18.7; MCH 29.6 pg (27.0-33.0); MCV 93 fL (80-95); MPV 10.3 fL (8.0-11.0); Monocytes % 7.8; Neutrophils % 72.6; Platelet Count 354 10^3/uL (130-400); RBC 3.41 10^6/uL (4.36-5.78); RDW 14.8 % (11.8-14.1); RDW-SD 49.7 fL; WBC 13.44 10^3/uL (4.4-10.8)
[2023-04-06 06:39] LABS: Absolute Eosinophil Count 0.01 10^3/uL (0.0-0.7); Absolute Neutrophil Count 9.76 10^3/uL (1.2-6.7)
[2023-04-06 06:42] LABS: INR 1.2 (0.9-1.1); Prothrombin Time 12.3 sec (9.3-11.0)
[2023-04-06 06:51] LABS: ALT 62 U/L (16-63); AST 27 U/L (15-37); Albumin 2.3 g/dL (3.4-5.0); Alkaline Phosphatase 435 U/L (46-116); Anion Gap 9.5 mmol/L (3-11); BUN 17 mg/dL (7-18); Bilirubin, Total 0.9 mg/dL (0.2-1.0); CO2 27.5 mmol/L (21.0-32.0); CREATININE 0.9 mg/dL (0.70-1.30); Chloride 102 mmol/L (98-107); Estimated GFR 91.31 (mL/min/1.73m2); Glucose 100 mg/dL (74-106); Potassium 3.9 mmol/L (3.5-5.1); Sodium 139 mmol/L (136-145); Total Protein 6.6 g/dL (6.4-8.2)
[2023-04-06 07:04] VITALS: BP 113/74; PULSE 88; RESP 16; TEMP 36.6; O2SAT 96
[2023-04-06] MEDS: Pantoprazole 40 MG TABCR PO (07:38)
[2023-04-06] MEDS: Magnesium Oxide 400 MG TAB PO (07:38)
[2023-04-06] MEDS: Potassium Chloride 20 MEQ TABCR PO (07:38)
[2023-04-06] MEDS: Empaglifozin 25 MG TAB PO (07:38)
[2023-04-06] MEDS: Irbesartan 75 MG TAB 150 MG PO (07:38)
[2023-04-06] MEDS: hydroCHLOROthiazide 12.5 MG TAB PO (07:39)
[2023-04-06] MEDS: amLODIPine 5 MG TAB PO (07:39)
[2023-04-06] MEDS: metFORMIN 500 MG TAB 1000 MG PO (07:39)
[2023-04-06] MEDS: Polyethylene Glycol 3350 17 GM PACKET PO (07:39)
[2023-04-06] MEDS: Docusate Sodium 100 MG CAP PO (07:39)
[2023-04-06 08:00] VITALS: RESP 18
[2023-04-06 08:24] LABS: Lab Add On Test DONE
[2023-04-06 08:32] LABS: C-Reactive Protein 21.24 mg/dL (0.0-0.3)
--- NOTE | 2023-04-06 09:30 | PGE_ITS ---
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 We will switch him over to Eliquis (7) Paroxysmal atrial fibrillation: Status: Acute (8) Acquired cerebral atrophy: (9) Diabetes mellitus type 2, controlled, without complications: (10) DJD (degenerative joint disease), lumbar: (11) Osteopenia determined by x-ray: (12) History of embolic stroke: Subjective Subjective Interval history since last seen: Pt is doing well. no headaches. No CP or SOB. no productive cough. no dysuria. no leg pain or swelling. He is tolerating a regular diet. He is moving his bowels with no diarrhea. He has been up walking around. He is having minimal abdominal pain. He has done Lovenox injection shots in the past. But he has difficulty administering the injections because of his fingers. Exam Const Other: PHYSICAL EXAM GENERAL APPEARANCE: Alert, healthy appearance, oriented, x 3,? in no acute distress HYDRATION: Well hydrated HEAD, EYES, EARS, NECK, THROAT: Head is normocephalic, pupils equal, round, reactive to light and accommodation, ocular movement intact, sclera clear and no jaundice. ?Dentition intact. No sore throat.? No jaw pain. No thrush LUNGS: normal respiration/normal chest excursion. ?Clear to auscultation bilaterally. ?No wheeze. ?HEART: Regular rate and rhythm. no murmurs EXTREMITY: No edema or cyanosis.? no leg pain, redness, swelling.? ABDOMEN: soft and non-tender to palpation.? Normal bowel sounds.? No hernias.? Objective Last Vital Signs Temp 36.6 C 04/06/23 07:04 Pulse 88 04/06/23 07:04 Resp 18 04/06/23 08:00 BP 113/74 04/06/23 07:04 Pulse Ox 96 04/06/23 07:04 Laboratory Results - last 24 hr 04/06/23 04/06/23 04/06/23 06:05 06:05 06:05 WBC 13.44 H RBC 3.41 L Hgb 10.1 L Hct 31.6 L MCV 93 MCH 29.6 MCHC 32.0 RDW 14.8 H Plt Count 354 MPV 10.3 Immature Gran % 0.4 Neutrophils % 72.6 Lymphocytes % 18.7 Monocytes % 7.8 Eosinophils % 0.1 Basophils % 0.4 Nucleated RBC % 0.0 Absolute Neutrophils 9.76 H Absolute Lymphocytes 2.51 Absolute Monocytes 1.05 H Absolute Eosinophils 0.01 Absolute Basophils 0.05 PT 12.3 H INR 1.2 H Sodium 139 Potassium 3.9 Chloride 102 Carbon Dioxide 27.5 Anion Gap 9.5 BUN 17 Creatinine 0.9 Est GFR (CKD-EPI 2020) 91.31 Glucose 100 Calcium 9.0 Total Bilirubin 0.9 AST 27 ALT 62 Alkaline Phosphatase 435 H C-Reactive Protein Total Protein 6.6 Albumin 2.3 L Add-On Test Request 04/06/23 04/06/23 06:05 06:05 WBC RBC Hgb Hct MCV MCH MCHC RDW Plt Count MPV Immature Gran % Neutrophils % Lymphocytes % Monocytes % Eosinophils % Basophils % Nucleated RBC % Absolute Neutrophils Absolute Lymphocytes Absolute Monocytes Absolute Eosinophils Absolute Basophils PT INR Sodium Potassium Chloride Carbon Dioxide Anion Gap BUN Creatinine Est GFR (CKD-EPI 2020) Glucose Calcium Total Bilirubin AST ALT Alkaline Phosphatase C-Reactive Protein 21.24 H Total Protein Albumin Add-On Test Request DONE PAWSS Have you Been Recently Intoxicated or Drunk Within the Last 30 days?: No Have you Ever Experienced Previous Episodes of Alcohol Withdrawal?: No Have you ever Experienced Withdrawal Seizures?: No Have you ever Experienced Delirium Tremens(DT)s?: No Have you ever undergone Alcohol Rehabilitation Treatment (i.e, inpt ot outpatient treatment programs)?: No Have you ever Experienced Blackouts?: No Have you ever Combined Alcohol with other Downers within the last 90 days?: No Have you ever Combined Alcohol with any other Substance of Abuse during the last 90 days?: No Positive Blood Alcohol level on Presentation? [PCS.BAL]: No Evidence of Increased Autonomic Activity (i.e. HR>120, tremor, sweating, agitation, nausea)?: No Result: 0 CBC White Blood Count 13.44 10^3/uL (4.4-10.8) H 04/06/23 Red Blood Count 3.41 10^6/uL (4.36-5.78) L 04/06/23 Hemoglobin 10.1 g/dL (13.5-17.5) L 04/06/23 Hematocrit 31.6 % (40.0-50.0) L 04/06/23 Mean Corpuscular Volume 93 fL (80-95) 04/06/23 Mean Corpuscular Hemoglobin 29.6 pg (27.0-33.0) 04/06/23 Mean Corpuscular Hemoglobin Concent 32.0 % (32.0-36.0) 03/24 12/14 Red Cell Distribution Width 14.8 % (11.8-14.1) H 04/06/23 Platelet Count 354 10^3/uL (130-400) 04/06/23 Mean Platelet Volume 10.3 fL (8.0-11.0) 04/06/23 Neutrophils % 72.6 04/06/23 Lymphocytes % 18.7 04/06/23 Monocytes % 7.8 04/06/23 Eosinophils % 0.1 04/06/23 Basophils % 0.4 04/06/23 Immature Granulocytes % 0.4 04/06/23 Comprehensive Metabolic Panel Sodium 139 mmol/L (136-145) 04/06/23 06:05 Potassium 3.9 mmol/L (3.5-5.1) 04/06/23 06:05 Chloride 102 mmol/L (98-107) 04/06/23 06:05 Carbon Dioxide 27.5 mmol/L (21.0-32.0) 04/06/23 06:05 BUN 17 mg/dL (7-18) 04/06/23 06:05 Creatinine 0.9 mg/dL (0.70-1.30) 04/06/23 06:05 Glucose 100 mg/dL (74-106) 04/06/23 06:05 Calcium 9.0 mg/dL (8.5-10.1) 04/06/23 06:05 Conjugated Bilirubin 0.3 mg/dL (0.0-0.2) H 03/27/23 06:20 Total Bilirubin 0.9 mg/dL (0.2-1.0) 04/06/23 06:05 ALT 62 U/L (16-63) 04/06/23 06:05 AST 27 U/L (15-37) 04/06/23 06:05 Alkaline Phosphatase 435 U/L (46-116) H 04/06/23 06:05 Total Protein 6.6 g/dL (6.4-8.2) 04/06/23 06:05 Albumin 2.3 g/dL (3.4-5.0) L 04/06/23 06:05 Time Spent with Patient Time Spent with Patient: 25-34 minutes Time was spent: preparing to see the patient(eg.review tests), obtaining and/or reviewing separately otained hiistory, ordering medications,tests, procedures, referring, communicating with other health rn care transition, indepentently interpreting results, counseling the patient and care coordination
--- NOTE | 2023-04-06 09:37 | DSE_ITS ---
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: Status: Acute (7) Paroxysmal atrial fibrillation: Status: Acute (8) Acquired cerebral atrophy: (9) Diabetes mellitus type 2, controlled, without complications: (10) DJD (degenerative joint disease), lumbar: (11) Osteopenia determined by x-ray: (12) History of embolic stroke: Discharge Plan Disposition Patient Disposition: Home Condition: Improving Discharge Details Reason For Visit: duct of Luschka leak/s/p biliary stent Admit Date/Time: 03/31/23 21:44 Admit Provider: Annette Dumont Attending Provider: Annette Dumont Primary Care Provider: LEXI PATEL Hospital Course Hospital Course: Patient was admitted on with severe right upper quadrant pain following a lap leonardo. He was found to have bile leak and went down to [facility] for ERCP which showed a duct of Luschka leak. He did have a stent placed. Stent will need to be removed. He does have an appointment at [facility] already for stent removal. He was on 10 days of Zosyn. He still has a low-grade white count at this time. But I think this is more reactionary rather than an infectious. At the time of discharge she is tolerating a regular diet. He has been able to move his bowels and is not having any diarrhea. He has no thrush. He has minimal abdominal pain. He has chronic back pain. He is not running a temp. He has been able to urinate without difficulty. We changed him from Coumadin to Eliquis because of his paroxysmal A-fib and history of stroke. He is given instructions in wound care, activity, diet, and warning signs. All questions were answered to his satisfaction. He has follow-up appointment scheduled. See discharge instructions Home Meds and New Rx's Prescriptions: New Eliquis 5 mg tablet 5 mg PO BID Qty: 60 0RF Rx Instructions: further refills to come from PCP first dose 04/06/23 pm. Continued atorvastatin 40 mg tablet 40 mg PO DAILY Jardiance 25 mg tablet 25 mg PO DAILY irbesartan [Avapro] 150 mg tablet 150 mg PO DAILY metformin 1,000 mg tablet 1,000 mg PO BID venlafaxine 100 mg tablet 50 mg PO DAILY amlodipine 5 mg tablet 5 mg PO DAILY acetaminophen [Tylenol] 325 MG tablet 650 mg PO PRN PRN (Reason: Pain) aspirin [Aspir-81] 81 MG tablet,delayed release (DR/EC) 81 mg PO DAILY sildenafil [Viagra] 100 MG tablet 100 mg PO PRN vitamin B complex 1 EACH capsule 1 ea PO DAILY Methocel E 4 M 1 GM granules 1 gm Miscellaneous DAILY cholecalciferol (vitamin D3) 50,000 UNIT capsule 50,000 unit PO DIRECTED Patient Comments: weekly on Thu. methadone 10 mg tablet See Rx Instructions .ROUTE .COMPLEX Patient Comments: TAKE 1 TABLET BY MOUTH EVERY MORNING AND TAKE 2 TABLET EVERY EVENING ON DAILY BASIS FOR CHRONIC PAIN Rx Instructions: TAKE 1 TABLET BY MOUTH EVERY MORNING AND TAKE 2 TABLET EVERY EVENING ON DAILY BASIS FOR CHRONIC PAIN hydrocodone-acetaminophen 7.5-325 mg tablet 1 tab PO Q6H PRN PRN Patient Comments: TAKE 1 TABLET BY MOUTH EVERY 6 HOURS NEEDED FOR CHRONIC PAIN potassium chloride 20 mEq tablet extended release 20 meq PO BID Qty: 60 0RF magnesium oxide 400 mg magnesium tablet 400 mg PO BID Qty: 60 0RF hydrochlorothiazide 25 MG tablet 12.5 mg PO DAILY Qty: 0 0RF glipizide 5 mg Tablet 5 mg PO HS Discontinued warfarin [Coumadin] 2 MG tablet 2 mg PO DAILY Patient Comments: 12/13/: 4 mg daily except M and Fri when he takes 3 mg. mrf enoxaparin [Lovenox] 80 mg/0.8 mL syringe 80 mg subcut Q12H 7 Days Qty: 11.2 0RF Rx Instructions: continue lovenox shots until your prothrombin INR is greater than 2.0 x two consecutive days amoxicillin-pot clavulanate 875-125 mg tablet 1 tab PO BID 7 Days Qty: 14 0RF Discharge Instructions Additional Instructions: Keep an ice bag on the incision. 20 minutes on and 20 minutes off. Ice keeps the swelling down and swelling causes pain. Make sure you wrap the ice pack in a towel and don't apply directly to the skin. -No driving for 24 hours or of you are taking narcotic pain medications. -Follow-up with Dr. Barnes on: 04/15 @11am. Have lab work done 1 hour prior to appt. orders are in the computer -low fat diet: avoid pork/high fat dairy/nuts&nut butters/avocadoes x1 week. -no straining to move bowels -pain meds are very constipating: if you do not move your bowels daily take a dose of OTC Miralax -It is ok to shower. No bathe, soaking, swimming or hot tubs -Keep wound clean and dry. Wash incision with soap and water daily. Pat dry, don't rub. -Protein supplements daily. You may find that your appetite is smaller. Eat 3-6 small meals throughout the day. It is important to drink lots of water after surgery, 6-10 glasses a day. -If you were given an incentive spirometry (breathing veterinary receptionist?), continue to do this 10x/hour while awake. -We do want you up walking, at least 5-6 times per day. This is very important to prevent pneumonia and blood clots. You can climb stairs, take them slowly. -No lifting over 5 pounds. This is very important to avoid developing a hernia in your incision. -You may find that you are very tired after surgery- this is normal. -please do not smoke for a minimum of 72 hours after surgery. Stand Alone Forms: Nursing Discharge Form Referrals: Annette Dumont, [OSTEOPATHIC DOCTOR] - 04/09/23 9:30 am () Activity:: see above Equipment/Supplies:: No Equipment Needed Diet:: see above Discharge Orders Discharge Orders: Discharge Order (Routine); Ordered 04/06/23 Ordered By: Annette Dumont DS: Summary Time Spent with Patient providing and/or coordinating discharge services: Greater than 30 minutes Status at Discharge Functional status at discharge: uses cane/walker Overall status at discharge: patient is progressing back to baseline Mental Status: mental status grossly normal Speech and Movement: speech and movement normal Mood: congruent mood Affect: normal affect Exam Psych Mental Status: mental status grossly normal Speech and Movement: speech and movement normal Mood: congruent mood Affect: normal affect DS: Data Vitals/I&O Vitals and I&O: Vital Signs Temperature 36.6 C 04/06/23 07:04 Temperature Source Tympanic 04/06/23 07:04 Pulse 88 04/06/23 07:04 Pulse Rhythm Regular 04/06/23 08:00 Pulse 72 04/02/23 16:30 Respiratory Rate 18 04/06/23 08:00 Respiratory Effort Normal, Non-Labored 04/06/23 08:00 Respiratory Depth Normal 04/06/23 08:00 Respiratory Pattern Normal 04/06/23 08:00 Blood Pressure 113/74 04/06/23 07:04 Blood Pressure Mean 92 04/02/23 16:00 Blood Pressure Position Supine 04/02/23 13:00 Pulse Oximetry 96 04/06/23 07:04 Oxygen Delivery Method Room Air 04/06/23 08:00 Oxygen Flow Rate 0 04/06/23 08:00 Pain Level 0 04/06/23 07:04 Comment RN aware 04/03/23 19:49 Intake & Output 04/05/23 04/05/23 04/06/23 11:59 23:59 11:59 Intake Total 360 / 660 300 / 660 350 / 350 Balance 360 / 660 300 / 660 350 / 350 Intake: IV 110 / 210 100 / 210 110 / 110 Oral 250 / 450 200 / 450 240 / 240 Other: Urine Color Pale Yellow Urine Appearance Clear Clear Comment pt had an unknown void at this time. unsure of amount Stool Size Large Large Stool Characteristics Soft Formed Brown Brown Black Black Data Completed and Pending Labs on day of discharge: Labs from last 24 hours 04/06/23 04/06/23 04/06/23 06:05 06:05 06:05 WBC RBC Hgb Hct MCV MCH MCHC RDW Plt Count MPV Immature Gran % Neutrophils % Lymphocytes % Monocytes % Eosinophils % Basophils % Nucleated RBC % Absolute Neutrophils Absolute Lymphocytes Absolute Monocytes Absolute Eosinophils Absolute Basophils PT 12.3 H INR 1.2 H Sodium Potassium Chloride Carbon Dioxide Anion Gap BUN Creatinine Est GFR (CKD-EPI 2020) Glucose Calcium Total Bilirubin AST ALT Alkaline Phosphatase C-Reactive Protein 21.24 H Total Protein Albumin Add-On Test Request DONE 04/06/23 04/06/23 06:05 06:05 WBC 13.44 H RBC 3.41 L Hgb 10.1 L Hct 31.6 L MCV 93 MCH 29.6 MCHC 32.0 RDW 14.8 H Plt Count 354 MPV 10.3 Immature Gran % 0.4 Neutrophils % 72.6 Lymphocytes % 18.7 Monocytes % 7.8 Eosinophils % 0.1 Basophils % 0.4 Nucleated RBC % 0.0 Absolute Neutrophils 9.76 H Absolute Lymphocytes 2.51 Absolute Monocytes 1.05 H Absolute Eosinophils 0.01 Absolute Basophils 0.05 PT INR Sodium 139 Potassium 3.9 Chloride 102 Carbon Dioxide 27.5 Anion Gap 9.5 BUN 17 Creatinine 0.9 Est GFR (CKD-EPI 2020) 91.31 Glucose 100 Calcium 9.0 Total Bilirubin 0.9 AST 27 ALT 62 Alkaline Phosphatase 435 H C-Reactive Protein Total Protein 6.6 Albumin 2.3 L Add-On Test Request [facility] All Active Problems (Updated 04/06/23 @ 09:35 by Annette Dumont DO) Depression due to physical illness (Acute) Hyperlipemia (Acute) Hypertension (Chronic) Hx of bacteremia (Acute) Patient was treated for E. coli bacteremia at [facility] 03/24-03/28. Initially on Zosyn. And then switched to ceftriaxone on 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 (Acute) Paroxysmal atrial fibrillation (Acute) Chronic pain (Chronic) Medical History (Updated 04/06/23 @ 09:35 by Annette Dumont DO) Abnormal glucose Acquired cerebral atrophy Adhesive capsulitis of both shoulders Carpal tunnel syndrome Cholangitis Colorectal polyps (~09/06/18) Diabetes mellitus type 2, controlled, without complications DJD (degenerative joint disease), lumbar History of embolic stroke Joint pain of leg Major depressive disorder, single episode Osteopenia determined by x-ray Other thrombophilia Sacroiliac joint dysfunction of both sides Sepsis SIRS (systemic inflammatory response syndrome) Surgical History (Updated 04/05/23 @ 12:55 by Eugenia Armas MD) S/P colonoscopy (~09/06/18) S/P laparoscopic cholecystectomy Social History Smoking/Tobacco Use Status: Former Tobacco Use Smoking risk assessment performed?: Yes Alcohol Intake: current Alcohol Intake frequency: a few times a week Alcohol type: hard liquor Drug use: Never Substance use type: does not use Housing: apartment Do you feel safe at home: Yes Do you feel safe in your relationship?: Yes Time Spent with Patient Time Spent with Patient: 45-69 minutes Time was spent: preparing to see the patient(eg.review tests), obtaining and/or reviewing separately otained hiistory, ordering medications,tests, procedures, referring, communicating with other health health care / medical job titles, indepentently interpreting results, counseling the patient and care coordination
--- NOTE | 2023-04-06 10:14 | PDOC.CMDIS ---
Date of service: 04/06/23 Time of Service: 10:14 LACE Index Scoring Tool Questions: Length of Stay (in days): 4 - 6 Was the patient admitted via the E.D.?: Yes Comorbidities: Cerebrovascular Disease and Diabetes w/o Complication E.D. Visits: 2 Answers: Total Score: 11 Risk of Readmission: High Risk Care Management Discharge Plan Reason for Hospitalization: abdominal pain Discharge Plan: Kulwinder will be discharged home with no new services. He will follow up with his surgeon, PCP and plan of care as prescribed. Kulwinder will transport via private vehicle with his . Patient/Family Education Needs: Review of discharge instructions including diet, activity, limitations, follow up plan and discuss Ask Me Three
--- NOTE | 2023-04-07 12:55 | PGE_ITS ---
Date of Service Date of service: 04/03/23 Time of Service: 12:00 Assessment and Plan Assessment and plan (1) Bile leak: Status: Resolved Subjective Subjective Interval history since last seen: Patient not seen as he went down to [facility] and was not back until late Objective Last Vital Signs Temp 97.9 F 04/06/23 07:04 Pulse 88 04/06/23 07:04 Resp 18 04/06/23 08:00 BP 113/74 04/06/23 07:04 Pulse Ox 96 04/06/23 07:04 PAWSS Have you Been Recently Intoxicated or Drunk Within the Last 30 days?: No Have you Ever Experienced Previous Episodes of Alcohol Withdrawal?: No Have you ever Experienced Withdrawal Seizures?: No Have you ever Experienced Delirium Tremens(DT)s?: No Have you ever undergone Alcohol Rehabilitation Treatment (i.e, inpt ot outpatient treatment programs)?: No Have you ever Experienced Blackouts?: No Have you ever Combined Alcohol with other Downers within the last 90 days?: No Have you ever Combined Alcohol with any other Substance of Abuse during the last 90 days?: No Positive Blood Alcohol level on Presentation? [PCS.BAL]: No Evidence of Increased Autonomic Activity (i.e. HR>120, tremor, sweating, agitation, nausea)?: No Result: 0 Time Spent with Patient Time Spent with Patient: <25 minutes Time was spent: other
== END 2023-04-06 14:00 | disposition home or self-care (01) | DRG 872 ==
LOC: ER 21:54 → ICU 04-01 09:00 → MS 04-02 17:05
PROVIDERS: Family Medicine; Internal Medicine; Nurse Practitioner Acute Care; Surgery; Admitting Provider Surgery; Emergency Provider Student in an Organized Health Care Education/Training Program; PCP Internal Medicine; Visit Provider Surgery
DX: A41.9 Sepsis, unspecified organism (principal); N17.9 Acute kidney failure, unspecified; K83.8 Other specified diseases of biliary tract; I48.0 Paroxysmal atrial fibrillation; Z79.01 Long term (current) use of anticoagulants; E11.9 Type 2 diabetes mellitus without complications; E78.5 Hyperlipidemia, unspecified; Z80.49 Family history of malignant neoplasm of other genital organs; M85.80 Other specified disorders of bone density and structure, unspecified site; Z86.73 Personal history of transient ischemic attack (TIA), and cerebral infarction without residual deficits; M47.816 Spondylosis without myelopathy or radiculopathy, lumbar region; I10 Essential (primary) hypertension; G31.89 Other specified degenerative diseases of nervous system; Z90.49 Acquired absence of other specified parts of digestive tract; G89.29 Other chronic pain; E87.6 Hypokalemia; M75.02 Adhesive capsulitis of left shoulder; M75.01 Adhesive capsulitis of right shoulder; F32.A Depression, unspecified; M54.9 Dorsalgia, unspecified
CPT/HCPCS: 36415; 71275; 78227; 80053; 83690; 84145; 87040; 96365; 96366; 96375; 96376; 97161; 99291; 74177; 81003; 83605; 83735; 84484; 85025; 85379; 85610; 85730; 86140; 87086; 99223; 99232; A0425; A0428; J0131; J1170; J1650; J1885; J2020; J2270; J2405; J2543; J3490

== ENCOUNTER → 2023-04-22 10:52 | Outpatient (BNVA) | payer MEDICARE, BC, SELFPAY | PROVIDERS: PCP Internal Medicine; Referring Provider Internal Medicine; Visit Provider Surgery | DX: Z48.815 Encounter for surgical aftercare following surgery on the digestive system (principal); K83.9 Disease of biliary tract, unspecified ==

== ENCOUNTER 2023-06-08 04:49 | Outpatient (CLI) | payer MEDICARE, BC, SELFPAY ==
[2023-06-08 10:23] LABS: INR 1.2 (0.9-1.1); Prothrombin Time 12.1 sec (9.1-11.1)
[2023-06-08 10:55] LABS: Magnesium 1.4 mg/dL (1.8-2.4)
[2023-06-08 11:02] LABS: ALT 21 U/L (16-63); AST 15 U/L (15-37); Albumin 3.5 g/dL (3.4-5.0); Alkaline Phosphatase 104 U/L (46-116); Anion Gap 9.9 mmol/L (3-11); BUN 16 mg/dL (7-18); Bilirubin, Total 0.3 mg/dL (0.2-1.0); CO2 26.1 mmol/L (21.0-32.0); Calcium 9.6 mg/dL (8.5-10.1); Chloride 101 mmol/L (98-107); Estimated GFR 80.47 (mL/min/1.73m2); Glucose 266 mg/dL (74-106); Potassium 4.5 mmol/L (3.5-5.1); Sodium 137 mmol/L (136-145)
== END 2023-06-08 04:50 | disposition home or self-care (01) ==
LOC: LBO 04:49
PROVIDERS: Internal Medicine; PCP Internal Medicine; Visit Provider Surgery
DX: K83.9 Disease of biliary tract, unspecified (principal); E83.42 Hypomagnesemia; I48.0 Paroxysmal atrial fibrillation; Z79.01 Long term (current) use of anticoagulants
CPT/HCPCS: 36415; 80053; 83735; 85610

== ENCOUNTER → 2023-06-10 10:45 | Outpatient (BNVA) | payer MEDICARE, BC, SELFPAY | PROVIDERS: PCP Internal Medicine; Referring Provider Internal Medicine; Visit Provider Surgery | DX: Z48.815 Encounter for surgical aftercare following surgery on the digestive system (principal) ==

== ENCOUNTER 2024-02-22 09:08 | Day surgery (SDC) | payer OTHER, SELFPAY ==
--- NOTE | 2024-02-21 20:06 | W.PM.DSUDISC ---
Date of service: 02/22/24 Time of Service: 11:23 Discharge Plan Disposition Patient Disposition: Home Condition: Good Discharge Details Reason For Visit: EGD and colonoscopy Attending Provider: Sanchez Barnes Primary Care Provider: Micki Arias Home Meds and New Rx's Prescriptions: Continued omeprazole 40 mg capsule,delayed release(DR/EC) 40 mg PO BID ferrous sulfate [Feosol] 325 mg (65 mg iron) tablet 325 mg PO DAILY atorvastatin 40 mg tablet 40 mg PO DAILY Jardiance 25 mg tablet 25 mg PO DAILY irbesartan [Avapro] 150 mg tablet 150 mg PO DAILY metformin 1,000 mg tablet 1,000 mg PO BID venlafaxine 100 mg tablet 150 mg PO BID acetaminophen [Tylenol] 325 MG tablet 650 mg PO PRN PRN (Reason: Pain) sildenafil [Viagra] 100 MG tablet 100 mg PO DIRECTED PRN cholecalciferol (vitamin D3) 50,000 UNIT capsule 50,000 unit PO DIRECTED Patient Comments: weekly on Thu. glipizide 5 mg tablet 10 mg PO BID Held Eliquis 5 mg tablet 5 mg PO BID Qty: 60 0RF Hold Instructions: Resume on 02/23/24. Rx Instructions: further refills to come from PCP first dose 04/06/23 pm. Discontinued polyethylene glycol 3350 17 gram/dose powder 238 g PO ONCE Qty: 238 0RF Rx Instructions: take per colonoscopy instructions bisacodyl [Dulcolax (bisacodyl)] 5 mg tablet,delayed release (DR/EC) 5 mg PO ONCE Qty: 4 0RF Rx Instructions: take per colonoscopy instructions Discharge Instructions Instructions: Colon polyps Additional Instructions: Heladio, we were able to complete your upper and lower endoscopy today without any difficulty. Your prep was excellent negative everything just fine. With regards to the upper endoscopy, everything looks normal. I did not see any signs of irritation or ulceration that would explain bleeding and anemia. I did do some biopsies of your stomach to see if there is any infection called Helicobacter pylori, which can cause some intermittent bleeding. Your colonoscopy also went very smoothly. Similar to the upper endoscopy, I did not find anything obvious that would explain chronic blood loss. He did have 3 polyps. All were quite small, and I removed them today without any issues. Because of the biopsies and the polyp removal, I would like you to continue holding the Eliquis until tomorrow. At that point, you can restart it like you normally take it. Will take a week or 2 for me to get the results from the polyps and the biopsies, but as soon as I have those, the office will be in touch with any other recommendations. In the meantime, if you need anything at all, please call. 1. If tolerated, consume a soft, low fiber diet for 1-2 days. 2[address] Do not drive, drink alcohol, operate machinery, make critical decisions, or do activities that require coordination or balance for 24 hours. 3. Because air was put into your colon during the procedure, expelling air from your rectum (passing gas or farting) is normal. 4. You may not have a bowel movement for 1-3 days because of the colonoscopy prep. This is normal. 5. Go directly to the emergency room if you notice any of the following: Develop chills (warm to touch), or if you have a thermometer and your temperature is above 101 Difficulty breathing or difficultly swallowing Persistent vomiting Severe abdominal pain, other than gas cramps Severe chest pain Black, tarry stools Any bleeding ? exceeding one tablespoon 6. Call your physician if the site where your intravenous was started becomes red, swollen, painful, and warm to touch. 7. Your physician has reviewed your pre-procedure medications. Please continue to take those medications as previously ordered. You will be given specific information/education regarding any changes to your medications before leaving. Activity:: Activity as Tolerated Diet:: As Tolerated Discharge Orders Discharge Orders: Discharge Order (Routine); Ordered 02/21/24 Ordered By: Sanchez Barnes DS: Diagnosis Discharge Diagnosis (1) Anemia: Status: Chronic Asessment and Plan: Follow-up on biopsy results
--- NOTE | 2024-02-21 20:08 | W.COLOREPORT ---
Date of service: 02/22/24 Time of Service: 11:25 Colonoscopy Report Date of procedure: 02/22/24 Pre-op diagnosis general: anemia Post-op diagnosis procedure note: other (Normal EGD, colon polyps) Procedure: EGD with biopsies and colonoscopy with polypectomy Surgeon: Sanchez Barnes Anesthesia Type: General:No Airway Estimated blood loss (mL): 10 Pathology: other (Random biopsies of the gastric antrum and body to rule out Helicobacter pylori. 0.25 cm polyps at 85 cm from the anus x 2, 0.25 cm polyp at 75 cm.) Complications: None Disposition: same day Indications: Heladio is a 74 year old man with anemia. He needs bidirectional diagnostic endoscopy to evalaute and treat his anemia Prep: Miralax/Dulcolax Procedure Start Time: Procedure End Time: :12 Retraction Time: 12 Findings: Normal-appearing EGD. 0.25 cm polyps at 85 cm from the anus x 2, and 0.25 cm polyp at 75 cm Procedure Description: After the initiation of anesthesia, and with the assistance of a bite block, I advanced a standard gastroscope through the mouth past the hypopharynx and into the esophagus.? Under the direct vision of the scope, I advanced down the esophagus into the stomach.? Once I entered the stomach, I performed a brief inspection, followed by retroflexion towards the gastric cardia.? This appeared normal.? After that, I gently advanced the scope around the incisura angularis and examined the pylorus.? This also appeared normal.? Next, I advanced the scope through the pylorus into the duodenum.? The mucosa was pink and healthy appearing.? There were no abnormalities.? I was able to visualize bile draining into the duodenum through the ampulla Vater. ?Next, I began retracting the endoscope.? I brought the camera back into the stomach and carefully examined it once again. I did not see any signs of irritation, inflammation, ulceration, or anything that would explain chronic anemia. I did perform random biopsies of the gastric antrum and body to see if that sheds any light on the diagnosis. This was performed with cold forceps with minimal bleeding.? I then gently desufflated some of the stomach, and withdrew the endoscope into the distal esophagus. Z-line was totally normal and regular appearing at 40 cm from the incisors. Narrowband imaging was used to assist with analysis. There is no evidence of any Robles's esophagus finally, I withdrew the scope along the length of the esophagus taking great care to examine the entirety of the mucosa.? I did not appreciate any abnormalities. Next, we moved Heladio into the left lateral decubitus position. I began by performing an external anorectal exam.? Perineum and skin were normal, as was the anal verge.? There was no evidence of external hemorrhoids.? Next, I performed a digital rectal exam.? I did not appreciate any abnormal findings.? Next, I advanced a colonoscope into the rectal vault.? I performed retroflexion.? This appeared normal.? Using insufflation, I then advanced the colonoscope beyond the rectal folds and into the sigmoid colon before advancing towards the cecum.? The scope was noted to be in the cecum by identification of the ileocecal valve and appendiceal orifice.? I then began withdrawing the colonoscope using repeated irrigation as necessary for full evaluation of the colonic mucosa. ?Around 85 cm from the anus were 2 polyps. There were just a centimeter to away from 1 another. Both were flat. Each was about 0.25 cm in its biggest dimension. These were both removed with cold forceps without any issues. Single specimen was sent. Around 75 cm from the anus was another polyp. This was also flat and about 0.25 cm. This was also removed with cold forceps just like the other 2. There was minimal bleeding here. Once the scope was withdrawn to the level of the rectum, great care was taken to examine portions of the rectal folds.? Finally, the scope was withdrawn and the patient was brought to the same-day surgery recovery unit as the anesthetic wore off. ?The findings and instructions were shared with the patient prior to discharge. [place] Bowel Prep [place] Bowel Prep Right Colon: 3 Left Colon: 3 Transverse Colon: 3 Total Score: 9
[2024-02-22 09:15] VITALS: BP 104/80; PULSE 83; RESP 16; TEMP 36.1; O2SAT 97
[2024-02-22] MEDS: Lactated Ringers 1,000 ML 80 ML IV (09:41)
--- NOTE | 2024-02-22 10:07 | W.ANESPRE ---
General Info Date of Service Date Performed: 02/22/24 Height: 5 ft 8 in Weight: 82.4 kg Body Mass Index (BMI): 27.6 Surgical Procedure: Operation Date: 02/22/24 10:35 Proposed Procedure Side Surgeon p Colonoscopy/Gastroscopy Sanchez Barnes MD Meds Allergies and Home Medications Allergies Allergy/AdvReac Type Severity Reaction Status Date / Time No Known Allergies Allergy Verified 02/22/24 09:35 Home Medication Medication Instructions Recorded acetaminophen 325 mg tablet 650 mg PO PRN PRN Pain 12/13/12 (Tylenol) cholecalciferol (vitamin D3) 1,250 50,000 unit PO DIRECTED 12/13/12 mcg (50,000 unit) capsule sildenafil 100 mg tablet (Viagra) 100 mg PO DIRECTED PRN 12/13/12 atorvastatin 40 mg tablet 40 mg PO DAILY 01/07/22 empagliflozin 25 mg tablet 25 mg PO DAILY 01/07/22 (Jardiance) irbesartan 150 mg tablet (Avapro) 150 mg PO DAILY 01/07/22 metformin 1,000 mg tablet 1,000 mg PO BID 01/07/22 apixaban 5 mg tablet (Eliquis) 5 mg PO BID #60 tabs 04/06/23 glipizide 5 mg tablet 10 mg PO BID 04/22/23 omeprazole 40 mg capsule,delayed 40 mg PO BID 04/22/23 release venlafaxine 100 mg tablet 150 mg PO BID 02/05/24 ferrous sulfate 325 mg (65 mg 325 mg PO DAILY 02/09/24 iron) tablet (Feosol) Current Visit Medications: Current Medications Generic Name Dose Route Start Last Admin Trade Name Chrisq PRN Reason Stop Dose Admin Hyoscyamine Sulfate 0.125 mg 02/21/24 20:09 Hyoscyamine 0.125 Mg Sl/Oral/Chew SL 03/22/24 20:08 DIRECTED PRN Ringer's Solution 1,000 mls @ 80 mls/hr 02/22/24 06:00 02/22/24 09:41 IV 02/22/24 23:59 80 mls/hr INFUSION [facility] Administration IV Miscellaneous Supplies 1 each 02/22/24 06:00 Iv Access IV 02/22/24 23:59 DIRECTED [facility] Ondansetron HCl 4 mg 02/21/24 20:09 Ondansetron 4 Mg/2 Ml Vial IVP 03/22/24 20:08 Q4H PRN PRN Nausea / Vomiting Sodium Chloride 0 ml 02/22/24 06:00 Normal Saline Flush 10 Ml Syr IV 02/22/24 23:59 PRN PRN Sodium Chloride 0 ml 02/22/24 06:00 Normal Saline 10 Ml Vial IJ 02/22/24 23:59 DIRECTED PRN Sterile Water 0 ml 02/22/24 06:00 Water,Injection,Sterile 10 Ml Vial IJ 02/22/24 23:59 DIRECTED PRN PFSH Active Problems Active Problems: Problem Status Onset Code Anemia D64.9 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 Hyperlipemia E78.5 Paroxysmal atrial fibrillation I48.0 Chronic pain G89.29 halfway current use of anticoagulant Z79.01 Hypertension I10 Medical History Medical History H/O agent [place] exposure Sepsis DJD (degenerative joint disease), lumbar History of embolic stroke 1998 Acquired cerebral atrophy Osteopenia determined by x-ray SIRS (systemic inflammatory response syndrome) Cholangitis Adhesive capsulitis of both shoulders Sacroiliac joint dysfunction of both sides Diabetes mellitus type 2, controlled, without complications Other thrombophilia Major depressive disorder, single episode Joint pain of leg Carpal tunnel syndrome Abnormal glucose Colorectal polyps (~09/06/18) Surgical History Surgical History History of [facility]CP [facility] [place] S/P laparoscopic cholecystectomy (~03/27/23) S/P colonoscopy (~09/06/18) Tobacco Smoking/Tobacco Use Status: Former Tobacco Use Alcohol Alcohol Intake: current Alcohol intake frequency: a few times a week Alcohol type: hard liquor Substance Use Substance use: Never Substance use type: does not use Vital Signs and Lab Results Vital Signs Most Recent Vital Signs in EMR: Most Recent Vital Signs Temp Pulse Resp BP Pulse Ox 36.1 C L 83 16 104/80 97 02/22/24 09:15 02/22/24 09:15 02/22/24 09:15 02/22/24 09:15 02/22/24 09:15 Point of Care Results Point of Care Results: Finger Stick Blood Glucose 150 02/22/24 09:23 Lab Results Blood Type / Crossmatch: No Data to Display Complete Blood Count: No Data to Display Complete Metabolic Panel: No Data to Display Liver Function Panel: No Data to Display Coagulation Panel: No Data to Display Cardiac Panel: No Data to Display Arterial Blood Gas: No Data to Display Venous Blood Gas: No Data to Display Pancreas Panel: No Data to Display Thyroid Panel: No Data to Display Infectious Disease: No Data to Display Blood Cultures: No Data to Display Toxicology Panel: No Data to Display Imaging and Studies Imaging and Studies Study information below may be from another EMR and interpreted by another provider. Please see original notes in EMR for more complete details. EKG Summary: 03/24/23: sinus tach Anesthesia Assessment and Plan Anesthesia History Personal History: No History of Anesthesia Complications Family History: No Family History of Anesthesia Complications Exercise Tolerance Exercise Tolerance: Metabolic Equivalents>4 Pertinent Negatives Pertinent Negatives: No Symptoms of GERD Cardiac & Pulmonary Exam Cardiac Exam: Normal S1/S2 Heart Sounds Pulmonary Exam: Clear Bilateral Breath Sounds Implantable Cardiac Device Does patient have a Pacemaker or an ICD?: No Airway Exam Known Difficult Airway: No Mallampati Class: 3 Mouth Opening: Narrow (< 3cm) Thyromental Distance: Less than 3 cm Neck Range of Motion: Limited ROM Neck Circumference: Normal Teeth Condition: Generalized Poor Dentition ASA Classification ASA Score: ASA 3 Emergency Case?: No NPO Status NPO Status: NPO Clears >2 hours, Solids >8 hours Anesthesia Plan Resuscitation Status: Full Code Anesthesia Technique: General Anesthesia Airway Planned: Endotracheal Tube Monitors Used: Standard Monitors
[2024-02-22 10:11] VITALS: BMI 27.6
--- NOTE | 2024-02-22 10:47 | BOWEL_PTH ---
PATIENT: Heladio Clemens LOC: [facility] U#:[id number] AGE/SX: 74/M ROOM: RE02/22/[address]: Sanchez Barnes MD : [id number] BED: DIS: 02/22/2024 SPEC #: [id number] RECD: 02/22/24 13:07 STATUS: SARAH REJessica #: [id number] EULOGIO: 02/22/24 10:[address]: Sanchez Barnes DEPT: Surgical Specimen RECD BY: Valerie Moreira ENTERED: 02/22/24 13:08 SP TYPE: Bowel OTHR DR: Micki Arias Tissues: 1 - STOMACH BIOPSY 2 - STOMACH BIOPSY 3 - BIOPSY BOWEL 4 - BIOPSY BOWEL Procedures: GROSS AND MICRO LEVEL 4 Comments: [id number]
[2024-02-22 11:15] VITALS: BP 78/52; PULSE 63; RESP 16; TEMP 35.7; O2SAT 96
[2024-02-22 11:47] VITALS: BP 79/57; PULSE 73; RESP 16; TEMP 36.1; O2SAT 96
[2024-02-22 12:25] VITALS: BP 90/61
--- NOTE | 2024-02-22 14:07 | W.ANESPOSTOP ---
Postoperative Evaluation Date, Time and Location Date Performed: 02/22/24 Time Performed: 12:32 Patient Location: Day Surgery Unit Vital Signs Most Recent Imported Vital Signs: Most Recent Vital Signs Temp Pulse Resp BP Pulse Ox 36.1 C L 73 16 79/57 L 96 02/22/24 11:47 02/22/24 11:47 02/22/24 11:47 02/22/24 11:47 02/22/24 11:47 Last NIBP visualized was 90/67. Did discuss with DSU RNs and they are working to upload those VS to [employer]. Patient was stable and appropriate at time of postoperative assessment. Pain Score Most Recent Pain Score: Most Recent Pain Score Pain Level 0 02/22/24 11:47 Assessment Mental Status: Awake (Alert & Oriented to Patient Baseline) Airway and Respiratory Function: Patent airway with normal (patient baseline) respiratory exam Cardiovascular Function: Hemodynamically Stable Hydration Status: Adequately Hydrated Nausea & Vomiting: No Nausea or Vomiting Pain: Pt. Denies Any Pain Peripheral Nerve Block: Patient did not receive a nerve block Postoperative Comments:: Spouse present at bedside at time of assessment. Patient and family member deny questions, patient appropriate, VSS, ready for discharge.
== END 2024-02-22 12:41 | disposition home or self-care (01) ==
LOC: SUR 09:09
PROVIDERS: PCP Internal Medicine; Visit Provider Surgery
PROC: (CPT 45380; principal; 2024-02-22 10:30)
DX: D64.9 Anemia, unspecified (principal); Z12.11 Encounter for screening for malignant neoplasm of colon; D12.3 Benign neoplasm of transverse colon; D12.4 Benign neoplasm of descending colon
CPT/HCPCS: 45380; 43239; 88305; J2371; J2704

== ENCOUNTER 2025-08-04 01:36 | Outpatient (CLI) | payer OTHER, SELFPAY ==
[2025-08-04 09:10] LABS: ALT 18 U/L (10-49); AST 14 U/L (<34); Albumin 4.4 g/dL (3.2-5.0); Alkaline Phosphatase 122 U/L (46-116); Anion Gap 9.9 mmol/L (3-11); BUN 14 mg/dL (9-23); Bilirubin, Total 0.6 mg/dL (0.2-1.2); CO2 29.1 mmol/L (20.0-31.0); Calcium 9.1 mg/dL (8.3-10.6); Chloride 106 mmol/L (98-107); Glucose 196 mg/dL (74-106); Potassium 4.1 mmol/L (3.5-5.1); Sodium 145 mmol/L (136-145); Total Protein 7.6 g/dL (5.7-8.2)
== END 2025-08-04 01:37 | disposition home or self-care (01) ==
LOC: LBO 01:36
PROVIDERS: PCP Internal Medicine; Visit Provider Chiropractor
DX: E11.9 Type 2 diabetes mellitus without complications (principal)
CPT/HCPCS: 36415; 80053